=== PATIENT | female | born 1930 | race Caucasian/White ===

== ENCOUNTER 2016-06-28 01:50 | Inpatient (IN) | payer MEDICARE, MEDICAID ==
[~2016-06-28] VITALS: Ht 160 cm; Wt 84.6 kg
[~2016-06-28 01:50] MED LIST: AMLO2.5T PO; APIX2.5T PO; ATOR40TA28 PO; FURO40 PO; METO25 PO; POTA8TAB4 PO; RAMI10 PO
[2016-06-28] MEDS ORDERED: FERR-89 PO (03:18)
[2016-06-28] MEDS ORDERED: RALO60 PO (03:18)
[2016-06-28] MEDS ORDERED: ATOR10TA84 PO (03:18)
[2016-06-28] MEDS ORDERED: DSS100 PO (03:18)
[2016-06-28] MEDS ORDERED: MULT-1259 PO (03:18)
[2016-06-28] MEDS ORDERED: OMEP20 PO (03:18)
[2016-06-28] MEDS ORDERED: HYDR-3965 PO (03:18)
[2016-06-28] MEDS ORDERED: ASPI81TA42 PO (03:18)
[2016-06-28] MEDS ORDERED: VITAD5000 PO (03:18)
[2016-06-28] MEDS ORDERED: FLUT16H NASAL (03:18)
[2016-06-28] MEDS ORDERED: CETI-260 PO (03:18)
[2016-06-28] MEDS ORDERED: AMLO2.5T PO (03:18)
[2016-06-28] MEDS ORDERED: RAMI10 PO (03:18)
[2016-06-28] MEDS ORDERED: BENZ-26 PO (03:18)
[2016-06-28 05:23] LABS: BASOPHILS % (AUTO) 0.5 % (0.0-2.0); HEMATOCRIT 39.5 % (36-46); HEMOGLOBIN 12.5 g/dL (12.0-16.0); LYMPHOCYTES # (AUTO) 1.4 K/uL (1.0-4.8); LYMPHOCYTES % (AUTO) 10.5 % (22.0-44.0); MEAN CORPUSCULAR HEMOGLOBIN 26.4 pg (26.0-34.0); MEAN CORPUSCULAR HGB CONC 31.8 G/dL (31.0-37.0); MEAN CORPUSCULAR VOLUME 83 fL (80-100); MONOCYTES % (AUTO) 7.5 % (2.0-9.0); NEUTROPHILS # (AUTO) 10.1 K/uL (1.8-7.7); NEUTROPHILS % (AUTO) 76.5 % (40.0-70.0); PLATELET COUNT (AUTO) 498 K/uL (150-450); RED BLOOD CELL COUNT(AUTO) 4.75 MIL/uL (4.00-5.20); RED CELL DISTRIBUTION WIDTH 15.5 % (11.5-14.5); WHITE BLOOD COUNT (AUTO) 13.2 K/uL (4.5-11.0)
[2016-06-28 05:33] LABS: ANION GAP 10 mmol/L (8-16); CALCIUM, TOTAL 9.2 mg/dL (8.8-10.5); CARBON DIOXIDE 26 mmol/L (22-29); CHLORIDE 98 mmol/L (98-107); CREATININE 0.89 mg/dL (0.60-1.30); GLOMERULAR FILTR. RATE CALC > 60 mL/min (>60); POTASSIUM 4.6 mmol/L (3.5-5.1); SODIUM SERUM 134 mmol/L (136-145); UREA NITROGEN, BLOOD 8 mg/dL (7-18)
[2016-06-28 05:40] LABS: ALANINE AMINOTRANSFERASE 55 U/L (12-78); ALBUMIN 2.7 g/dL (3.4-5.0); ASPARTATE AMINOTRANSFERASE 31 U/L (15-37); BILIRUBIN,TOTAL 0.4 mg/dL (0.1-1.0); CREATINE KINASE, TOTAL 34 U/L (26-192); TOTAL PROTEIN, SERUM 7.4 g/dL (6.4-8.2)
[2016-06-28 05:55] LABS: B-TYPE NATRIURETIC PEPTIDE 271 pg/mL (0-100)
[2016-06-28] MEDS ORDERED: ALBUTEROL SULFATE 2.5 MG/0.5 ML NEB SOLUTION NEB ONE (06:45)
[2016-06-28] MEDS ORDERED: FUROSEMIDE 40 MG/4 ML VIAL IVP ONE (06:45)
[2016-06-28] MEDS ORDERED: LEVOFLOXACIN 500 MG/D5% WATER 100 ML IV ONE (06:45)
[2016-06-28 07:27] LABS: ADD UA MICROSCOPIC YES; GLUCOSE, URINE (UA) NEGATIVE (NEGATIVE); KETONES,URINE NEGATIVE (NEGATIVE); LEUKOCYTE ESTERASE ,URINE MODERATE (NEGATIVE); OCCULT BLOOD,URINE SMALL (NEGATIVE); PROTEIN,URINE NEGATIVE (NEGATIVE)
[2016-06-28 07:28] LABS: APPEARANCE,URINE HAZY (CLEAR)
[2016-06-28 07:30] LABS: SQUAMOUS EPITHELIAL CELL,UR Few /LPF (None Seen)
[2016-06-28] MEDS: ALBUTEROL SULFATE 2.5 MG/0.5 ML NEB SOLUTION NEB SCH ×3 (09:15→19:49)
[2016-06-28] MEDS ORDERED: OxyCODONE HCL/ACETAMINOPHEN 5-325 MG TABLET PO PRN (09:15)
[2016-06-28] MEDS ORDERED: ALBUTEROL SULFATE 2.5 MG/0.5 ML NEB SOLUTION NEB PRN (09:15)
[2016-06-28] MEDS ORDERED: BENZONATATE 100 MG CAPSULE PO ONE (12:45)
[2016-06-28 17:15] VITALS: BP 124/51
[2016-06-28] MEDS: HEPARIN SODIUM,PORCINE 5,000 UNITS/ML VIAL SQ SCH (17:21)
[2016-06-28] MEDS ORDERED: 0.9% SODIUM CHLORIDE 5 ML NEB SOLUTION NEB ONE (19:15)
[2016-06-28 21:16] VITALS: BP 133/87
[2016-06-28] MEDS ORDERED: BENZONATATE 100 MG CAPSULE PO PRN (21:30)
[2016-06-29] VITALS (7 sets, daily range): BP systolic 101–150; BP diastolic 52–75
[2016-06-29] MEDS: HEPARIN SODIUM,PORCINE 5,000 UNITS/ML VIAL SQ SCH ×4 (00:20→23:44)
[2016-06-29] MEDS ORDERED: ONDANSETRON HCL 4 MG/2 ML VIAL IVP PRN (01:00)
[2016-06-29] MEDS: ZOLPIDEM TARTRATE 5 MG TABLET PO PRN (01:05)
[2016-06-29] MEDS ORDERED: INFLUENZA VIRUS VACCINE QVS 2016-17 (3YR+)/PF 60 MCG/0.5 ML SYRINGE IM ONE (02:00)
[2016-06-29] MEDS ORDERED: -PHARMACY VACCINE NOTE- MISC ONE ×2 (02:00)
[2016-06-29] MEDS: ALBUTEROL SULFATE 2.5 MG/0.5 ML NEB SOLUTION NEB SCH ×4 (02:00→20:18)
[2016-06-29] MEDS ORDERED: 0.9% SODIUM CHLORIDE 5 ML NEB SOLUTION NEB ONE ×3 (07:20→20:07)
[2016-06-29] MEDS: PANTOPRAZOLE SODIUM 40 MG DR TABLET PO SCH (09:24)
[2016-06-29] MEDS: AmLODIPine BESYLATE 2.5 MG TABLET PO SCH ×2 (12:01→20:58)
[2016-06-29] MEDS: ASPIRIN 81 MG EC TABLET PO SCH (12:01)
[2016-06-29] MEDS: METOPROLOL TARTRATE 25 MG TABLET PO SCH (12:01)
[2016-06-29] MEDS: ATORVASTATIN CALCIUM 10 MG TABLET PO SCH (12:01)
[2016-06-29] MEDS: BENZONATATE 100 MG CAPSULE PO SCH ×2 (16:48→20:57)
[2016-06-29] MEDS: ACETAMINOPHEN 325 MG TABLET PO PRN (19:46)
[2016-06-29] MEDS: RAMIPRIL 10 MG CAPSULE PO SCH (20:58)
[2016-06-30] MEDS ORDERED: 0.9% SODIUM CHLORIDE 5 ML NEB SOLUTION NEB ONE ×4 (02:03→20:07)
[2016-06-30] MEDS: ALBUTEROL SULFATE 2.5 MG/0.5 ML NEB SOLUTION NEB SCH ×4 (02:08→20:09)
[2016-06-30 03:55] VITALS: BP 128/68
[2016-06-30 07:24] LABS: BASOPHILS % (AUTO) 0.6 % (0.0-2.0); EOSINOPHILS % (AUTO) 8.7 % (1.0-6.0); HEMATOCRIT 37.6 % (36-46); HEMOGLOBIN 11.9 g/dL (12.0-16.0); LYMPHOCYTES # (AUTO) 1.3 K/uL (1.0-4.8); LYMPHOCYTES % (AUTO) 11.2 % (22.0-44.0); MEAN CORPUSCULAR HEMOGLOBIN 26.3 pg (26.0-34.0); MEAN CORPUSCULAR HGB CONC 31.5 G/dL (31.0-37.0); MEAN CORPUSCULAR VOLUME 83 fL (80-100); MONOCYTES % (AUTO) 8.3 % (2.0-9.0); NEUTROPHILS # (AUTO) 8.4 K/uL (1.8-7.7); NEUTROPHILS % (AUTO) 71.2 % (40.0-70.0); PLATELET COUNT (AUTO) 527 K/uL (150-450); RED BLOOD CELL COUNT(AUTO) 4.51 MIL/uL (4.00-5.20); RED CELL DISTRIBUTION WIDTH 16.3 % (11.5-14.5); WHITE BLOOD COUNT (AUTO) 11.8 K/uL (4.5-11.0)
[2016-06-30 07:42] VITALS: BP 130/77
[2016-06-30 07:54] LABS: ALANINE AMINOTRANSFERASE 36 U/L (12-78); ALBUMIN 2.4 g/dL (3.4-5.0); ANION GAP 8 mmol/L (8-16); ASPARTATE AMINOTRANSFERASE 29 U/L (15-37); BILIRUBIN,TOTAL 0.3 mg/dL (0.1-1.0); CARBON DIOXIDE 28 mmol/L (22-29); CHLORIDE 95 mmol/L (98-107); CREATININE 0.86 mg/dL (0.60-1.30); GLOMERULAR FILTR. RATE CALC > 60 mL/min (>60); POTASSIUM 4.8 mmol/L (3.5-5.1); SODIUM SERUM 131 mmol/L (136-145); TOTAL PROTEIN, SERUM 6.9 g/dL (6.4-8.2); UREA NITROGEN, BLOOD 7 mg/dL (7-18)
[2016-06-30] MEDS: HEPARIN SODIUM,PORCINE 5,000 UNITS/ML VIAL SQ SCH ×3 (08:54→23:30)
[2016-06-30] MEDS: CHOLECALCIFEROL (VIT D3) 5,000 UNITS CAPSULE PO SCH (08:56)
[2016-06-30] MEDS: CETIRIZINE HCL 10 MG TABLET PO SCH (08:56)
[2016-06-30] MEDS: BENZONATATE 100 MG CAPSULE PO SCH ×3 (08:57→21:05)
[2016-06-30] MEDS: ASPIRIN 81 MG EC TABLET PO SCH (08:57)
[2016-06-30] MEDS: ATORVASTATIN CALCIUM 10 MG TABLET PO SCH (08:57)
[2016-06-30] MEDS: PANTOPRAZOLE SODIUM 40 MG DR TABLET PO SCH (08:58)
[2016-06-30] MEDS: METOPROLOL TARTRATE 25 MG TABLET PO SCH (08:58)
[2016-06-30 11:16] VITALS: BP 108/58
[2016-06-30] MEDS: AmLODIPine BESYLATE 2.5 MG TABLET PO SCH ×2 (11:58→21:05)
[2016-06-30] MEDS: RAMIPRIL 10 MG CAPSULE PO SCH ×2 (11:58→21:05)
[2016-06-30 15:20] VITALS: BP 131/60
[2016-06-30] MEDS: ACETAMINOPHEN 325 MG TABLET PO PRN (17:29)
[2016-06-30 19:21] VITALS: BP 112/76
[2016-06-30 23:24] VITALS: BP 111/57
[2016-06-30] MEDS: ZOLPIDEM TARTRATE 5 MG TABLET PO PRN (23:30)
[2016-07-01] MEDS: ALBUTEROL SULFATE 2.5 MG/0.5 ML NEB SOLUTION NEB SCH ×2 (02:00→08:26)
[2016-07-01 05:12] VITALS: BP 133/58
[2016-07-01 06:43] LABS: EOSINOPHILS % (AUTO) 10.3 % (1.0-6.0); HEMATOCRIT 36.7 % (36-46); HEMOGLOBIN 11.6 g/dL (12.0-16.0); LYMPHOCYTES # (AUTO) 1.2 K/uL (1.0-4.8); LYMPHOCYTES % (AUTO) 11.6 % (22.0-44.0); MEAN CORPUSCULAR HEMOGLOBIN 26.5 pg (26.0-34.0); MEAN CORPUSCULAR HGB CONC 31.6 G/dL (31.0-37.0); MEAN CORPUSCULAR VOLUME 84 fL (80-100); MONOCYTES % (AUTO) 9.5 % (2.0-9.0); NEUTROPHILS # (AUTO) 6.9 K/uL (1.8-7.7); NEUTROPHILS % (AUTO) 67.6 % (40.0-70.0); PLATELET COUNT (AUTO) 491 K/uL (150-450); RED BLOOD CELL COUNT(AUTO) 4.38 MIL/uL (4.00-5.20); RED CELL DISTRIBUTION WIDTH 15.9 % (11.5-14.5); WHITE BLOOD COUNT (AUTO) 10.3 K/uL (4.5-11.0)
[2016-07-01] MEDS ORDERED: 0.9% SODIUM CHLORIDE 5 ML NEB SOLUTION NEB ONE (07:22)
[2016-07-01 07:24] LABS: ALANINE AMINOTRANSFERASE 38 U/L (12-78); ALBUMIN 2.3 g/dL (3.4-5.0); ANION GAP 8 mmol/L (8-16); ASPARTATE AMINOTRANSFERASE 30 U/L (15-37); BILIRUBIN,TOTAL 0.3 mg/dL (0.1-1.0); CALCIUM, TOTAL 8.9 mg/dL (8.8-10.5); CARBON DIOXIDE 27 mmol/L (22-29); CHLORIDE 97 mmol/L (98-107); GLOMERULAR FILTR. RATE CALC > 60 mL/min (>60); POTASSIUM 4.7 mmol/L (3.5-5.1); SODIUM SERUM 132 mmol/L (136-145); TOTAL PROTEIN, SERUM 6.4 g/dL (6.4-8.2); UREA NITROGEN, BLOOD 5 mg/dL (7-18)
[2016-07-01 07:28] VITALS: BP 125/59
[2016-07-01] MEDS: HEPARIN SODIUM,PORCINE 5,000 UNITS/ML VIAL SQ SCH (08:49)
[2016-07-01] MEDS: PANTOPRAZOLE SODIUM 40 MG DR TABLET PO SCH (08:50)
[2016-07-01] MEDS: ATORVASTATIN CALCIUM 10 MG TABLET PO SCH (08:50)
[2016-07-01] MEDS: METOPROLOL TARTRATE 25 MG TABLET PO SCH (08:50)
[2016-07-01] MEDS: CHOLECALCIFEROL (VIT D3) 5,000 UNITS CAPSULE PO SCH (08:50)
[2016-07-01] MEDS: CETIRIZINE HCL 10 MG TABLET PO SCH (08:51)
[2016-07-01] MEDS: BENZONATATE 100 MG CAPSULE PO SCH (08:51)
[2016-07-01] MEDS: ASPIRIN 81 MG EC TABLET PO SCH (08:51)
[2016-07-01 11:09] VITALS: BP 100/75
[2016-07-01] MEDS: RAMIPRIL 10 MG CAPSULE PO SCH (11:44)
[2016-07-01] MEDS: AmLODIPine BESYLATE 2.5 MG TABLET PO SCH (11:44)
[2016-07-01] MEDS ORDERED: CIPR500S4 PO (13:29)
[2016-07-01] MEDS ORDERED: CIP750 PO (13:31)
[2016-07-01] MEDS ORDERED: BENZ1LOZ68 PO (13:33)
[2016-07-01] MEDS ORDERED: TUSSI5L PO (13:34)
== END 2016-07-01 14:45 | disposition home or self-care (01) | DRG 871 ==
LOC: EMS 01:51 → 5S 14:45 → 5N 19:40
PROVIDERS: ADMIT Hospitalist; ATTEND Hospitalist
DX: A41.9 Sepsis, unspecified organism (principal); J69.0 Pneumonitis due to inhalation of food and vomit; E43 Unspecified severe protein-calorie malnutrition; N39.0 Urinary tract infection, site not specified; I48.2 Chronic atrial fibrillation; I10 Essential (primary) hypertension; Z86.73 Personal history of transient ischemic attack (TIA), and cerebral infarction without residual deficits; E66.9 Obesity, unspecified; E88.09 Other disorders of plasma-protein metabolism, not elsewhere classified; E78.5 Hyperlipidemia, unspecified; E78.00 Pure hypercholesterolemia, unspecified; K21.9 Gastro-esophageal reflux disease without esophagitis; M81.0 Age-related osteoporosis without current pathological fracture; Z88.0 Allergy status to penicillin; Z91.040 Latex allergy status; Z79.82 Long term (current) use of aspirin; Z79.1 Long term (current) use of non-steroidal anti-inflammatories (NSAID); Z79.899 Other long term (current) drug therapy; Z68.33 Body mass index [BMI] 33.0-33.9, adult; Z28.21 Immunization not carried out because of patient refusal
CPT/HCPCS: 83605; 87040; 87086; 90471; 93005; 94640; 96365; 96366; 96375; 99285; J1644; J1940; J1956; J2405

== ENCOUNTER → 2016-07-03 | Outpatient (CLI) | payer MEDICARE, MEDICAID ==
[~2016-07-03] MED LIST changes: -APIX2.5T PO; +ASPI81TA42 PO; +ATOR10TA84 PO; -ATOR40TA28 PO; +BENZ-26 PO; +BENZ1LOZ68 PO; +CETI-193 PO; +CETI-260 PO; +CIP750 PO; +DSS100 PO; +FERR-89 PO; +FLUT16H NASAL; -FURO40 PO; +HYDR-3965 PO; +LEVO250 PO; +MULT-1259 PO; +NACL1 PO; +OMEP20 PO; -POTA8TAB4 PO; +RALO60 PO; +TURM500C3 PO; +TUSSI5L PO; +VITAD5000 PO
== END | disposition home or self-care (01) ==
LOC: RADPV 12:51
PROVIDERS: ATTEND Legal Medicine
DX: J18.9 Pneumonia, unspecified organism (principal); J98.4 Other disorders of lung; I70.0 Atherosclerosis of aorta
CPT/HCPCS: 71020

== ENCOUNTER → 2016-08-14 | Outpatient (CLI) | payer MEDICARE, MEDICAID ==
[~2016-08-14] MED LIST changes: -CETI-193 PO; -FERR-89 PO; +FERS325 PO; -LEVO250 PO; -NACL1 PO; -TURM500C3 PO
== END | disposition home or self-care (01) ==
LOC: RADPV 14:47
PROVIDERS: ATTEND Legal Medicine
DX: J18.9 Pneumonia, unspecified organism (principal); I51.7 Cardiomegaly; I70.0 Atherosclerosis of aorta; R59.9 Enlarged lymph nodes, unspecified
CPT/HCPCS: 71020

== ENCOUNTER 2016-08-26 12:07 | Inpatient (IN) | payer MEDICARE, MEDICAID ==
[~2016-08-26] VITALS: Ht 167.6 cm; Wt 78.7 kg
[~2016-08-26 12:07] MED LIST changes: +FERR-89 PO; -FERS325 PO
[2016-08-26] MEDS ORDERED: CETI-193 PO (12:14)
[2016-08-26] MEDS ORDERED: TURM500C3 PO (12:16)
[2016-08-26] MEDS ORDERED: SODIUM CHLORIDE 0.9% 1,000 ML IV ONE (12:30)
[2016-08-26 12:48] LABS: BASOPHILS % (AUTO) 0.6 % (0.0-2.0); EOSINOPHILS % (AUTO) 7.6 % (1.0-6.0); HEMATOCRIT 36.8 % (36-46); HEMOGLOBIN 11.6 g/dL (12.0-16.0); LYMPHOCYTES # (AUTO) 1.5 K/uL (1.0-4.8); MEAN CORPUSCULAR HEMOGLOBIN 25.8 pg (26.0-34.0); MEAN CORPUSCULAR HGB CONC 31.5 G/dL (31.0-37.0); MEAN CORPUSCULAR VOLUME 82 fL (80-100); MONOCYTES # (AUTO) 0.7 K/uL (0.1-1.0); MONOCYTES % (AUTO) 6.5 % (2.0-9.0); NEUTROPHILS # (AUTO) 8.1 K/uL (1.8-7.7); NEUTROPHILS % (AUTO) 72.3 % (40.0-70.0); PLATELET COUNT (AUTO) 448 K/uL (150-450); RED BLOOD CELL COUNT(AUTO) 4.49 MIL/uL (4.00-5.20); RED CELL DISTRIBUTION WIDTH 17.3 % (11.5-14.5); WHITE BLOOD COUNT (AUTO) 11.2 K/uL (4.5-11.0)
[2016-08-26 13:03] LABS: CALCIUM, TOTAL 9.6 mg/dL (8.8-10.5); CREATININE 1.36 mg/dL (0.60-1.30); POTASSIUM 5.3 mmol/L (3.5-5.1)
[2016-08-26 13:09] LABS: ALBUMIN 3.1 g/dL (3.4-5.0); BILIRUBIN,TOTAL 0.6 mg/dL (0.1-1.0); TOTAL PROTEIN, SERUM 7.8 g/dL (6.4-8.2)
[2016-08-26 13:20] LABS: RBC MORPHOLOGY COMMENT ABNORMAL RBC MORPH
[2016-08-26] MEDS ORDERED: LEVOFLOXACIN 500 MG/D5% WATER 100 ML IV ONE (15:00)
[2016-08-26] MEDS ORDERED: FUROSEMIDE 40 MG/4 ML VIAL IVP ONE (15:00)
[2016-08-26 15:42] LABS: APPEARANCE,URINE CLEAR (CLEAR); GLUCOSE, URINE (UA) NEGATIVE (NEGATIVE); KETONES,URINE NEGATIVE (NEGATIVE); LEUKOCYTE ESTERASE ,URINE NEGATIVE (NEGATIVE); OCCULT BLOOD,URINE NEGATIVE (NEGATIVE); PH,URINE 6.5 (5.0-8.0); PROTEIN,URINE NEGATIVE (NEGATIVE)
[2016-08-26 15:45] LABS: ADD UA MICROSCOPIC NO
[2016-08-26] MEDS ORDERED: ONDANSETRON HCL 4 MG/2 ML VIAL IVP PRN (16:45)
[2016-08-26] MEDS ORDERED: MAGNESIUM HYDROXIDE SUSPENSION 30 ML UDCUP PO PRN (16:45)
[2016-08-26] MEDS: HEPARIN SODIUM,PORCINE 5,000 UNITS/ML VIAL SQ SCH (16:45)
[2016-08-26] MEDS ORDERED: BISACODYL 10 MG RECTAL RECTAL SUPPOSITORY PR PRN (16:45)
[2016-08-26] MEDS ORDERED: *CLINICAL-LEVOFLOXACIN IVPB DOSING CLINICAL ONE ×2 (17:00)
[2016-08-26 17:01] VITALS: BP 114/64
[2016-08-26] MEDS: BENZONATATE 100 MG CAPSULE PO SCH ×2 (18:48→23:54)
[2016-08-26 19:35] VITALS: BP 122/61
[2016-08-26] MEDS: FERROUS SULFATE 325 MG EC TABLET PO SCH (21:09)
[2016-08-26] MEDS: ACETAMINOPHEN 325 MG TABLET PO PRN (21:09)
[2016-08-26] MEDS: ZOLPIDEM TARTRATE 5 MG TABLET PO PRN (21:09)
[2016-08-26] MEDS: FLUTICASONE PROPIONATE 50 MCG/SPRAY 16 GM NASAL SPRAY NASAL SCH (21:46)
[2016-08-27 00:25] VITALS: BP 109/59
[2016-08-27] MEDS: HEPARIN SODIUM,PORCINE 5,000 UNITS/ML VIAL SQ SCH ×2 (04:47→17:22)
[2016-08-27 05:07] VITALS: BP_SYST 103; BP_SYST 131; BP_DIAS 52; BP_DIAS 60
[2016-08-27 07:05] LABS: BASOPHILS # (AUTO) 0.15 K/uL (0.00-0.20); BASOPHILS % (AUTO) 1.8 % (0.0-2.0); EOSINOPHILS # (AUTO) 0.97 K/uL (0.00-0.70); EOSINOPHILS % (AUTO) 11.46 % (1.0-6.0); HEMATOCRIT 31.8 % (36-46); HEMOGLOBIN 10.3 g/dL (12.0-16.0); LYMPHOCYTES # (AUTO) 1.6 K/uL (1.0-4.8); LYMPHOCYTES % (AUTO) 18.5 % (22.0-44.0); MEAN CORPUSCULAR HEMOGLOBIN 26.6 pg (26.0-34.0); MEAN CORPUSCULAR HGB CONC 32.3 G/dL (31.0-37.0); MEAN CORPUSCULAR VOLUME 82 fL (80-100); MONOCYTES # (AUTO) 0.8 K/uL (0.1-1.0); MONOCYTES % (AUTO) 9.5 % (2.0-9.0); NEUTROPHILS % (AUTO) 58.7 % (40.0-70.0); PLATELET COUNT (AUTO) 425 K/uL (150-450); RED BLOOD CELL COUNT(AUTO) 3.86 MIL/uL (4.00-5.20); RED CELL DISTRIBUTION WIDTH 17.9 % (11.5-14.5); WHITE BLOOD COUNT (AUTO) 8.4 K/uL (4.5-11.0)
[2016-08-27 07:51] LABS: HEMOGLOBIN A1C 6.7 % (4.5-6.2)
[2016-08-27 07:58] LABS: ANION GAP 10 mmol/L (8-16); CARBON DIOXIDE 24 mmol/L (22-29); CHLORIDE 98 mmol/L (98-107); CHOL/HDL RATIO 3.7 (3.9-5.7); CREATINE KINASE, TOTAL 45 U/L (26-192); CREATININE 1.41 mg/dL (0.60-1.30); GLOMERULAR FILTR. RATE CALC 36 mL/min (>60); POTASSIUM 4.1 mmol/L (3.5-5.1); SODIUM SERUM 132 mmol/L (136-145); UREA NITROGEN, BLOOD 17 mg/dL (7-18)
[2016-08-27 08:05] VITALS: BP 101/60
[2016-08-27] MEDS ORDERED: FUROSEMIDE 20 MG/2 ML VIAL IVP SCH (09:00)
[2016-08-27] MEDS ORDERED: PANTOPRAZOLE SODIUM 40 MG DR TABLET PO SCH (09:00)
[2016-08-27] MEDS: CHOLECALCIFEROL (VIT D3) 5,000 UNITS CAPSULE PO SCH (09:36)
[2016-08-27] MEDS: BENZONATATE 100 MG CAPSULE PO SCH ×3 (09:36→23:37)
[2016-08-27] MEDS: ATORVASTATIN CALCIUM 10 MG TABLET PO SCH (09:36)
[2016-08-27] MEDS: ASPIRIN 81 MG EC TABLET PO SCH (09:37)
[2016-08-27] MEDS: OMEPRAZOLE 20 MG CAPSULE PO SCH (09:37)
[2016-08-27] MEDS: ACETAMINOPHEN 325 MG TABLET PO PRN (09:40)
[2016-08-27] MEDS: FLUTICASONE PROPIONATE 50 MCG/SPRAY 16 GM NASAL SPRAY NASAL SCH ×2 (09:40→20:23)
[2016-08-27 09:45] LABS: RBC MORPHOLOGY COMMENT ABNORMAL RBC MORPH
[2016-08-27 11:14] VITALS: BP 93/54
[2016-08-27] MEDS ORDERED: MAGNESIUM SULFATE 3 GM in DEXTROSE 5%-WATER 100 ML IV ONE (11:15)
[2016-08-27] MEDS ORDERED: MORPHINE SULFATE 2 MG/ML SYRINGE IVP PRN (12:15)
[2016-08-27] MEDS ORDERED: HYDROCODONE/ACETAMINOPHEN 5-325 MG TABLET PO PRN (12:15)
[2016-08-27 15:36] VITALS: BP 108/65
[2016-08-27] MEDS: LEVOFLOXACIN 750 MG/D5% WATER 150 ML IV SCH (18:36)
[2016-08-27 20:01] VITALS: BP 131/54
[2016-08-27] MEDS: FERROUS SULFATE 325 MG EC TABLET PO SCH (20:23)
[2016-08-27] MEDS ORDERED: 0.9% SODIUM CHLORIDE 15 ML NEB SOLUTION NEB ONE (21:10)
[2016-08-27] MEDS: DOCUSATE SODIUM 100 MG CAPSULE PO PRN (23:39)
[2016-08-27] MEDS ORDERED: SODIUM CHLORIDE 3% 15 ML NEB SOLUTION NEB ONE (23:46)
[2016-08-28] VITALS (8 sets, daily range): BP systolic 97–121; BP diastolic 50–80
[2016-08-28] MEDS: ALBUTEROL SULFATE 2.5 MG/0.5 ML NEB SOLUTION NEB PRN ×3 (00:04→17:15)
[2016-08-28] MEDS: IPRATROPIUM BROMIDE 0.5 MG/2.5 ML NEB SOLUTION NEB PRN ×3 (00:04→17:15)
[2016-08-28] MEDS ORDERED: 0.9% SODIUM CHLORIDE 5 ML NEB SOLUTION NEB ONE (00:19)
[2016-08-28] MEDS: ZOLPIDEM TARTRATE 5 MG TABLET PO PRN (01:17)
[2016-08-28] MEDS: HEPARIN SODIUM,PORCINE 5,000 UNITS/ML VIAL SQ SCH ×2 (04:51→16:03)
[2016-08-28 06:03] LABS: BASOPHILS # (AUTO) 0.07 K/uL (0.00-0.20); BASOPHILS % (AUTO) 0.7 % (0.0-2.0); EOSINOPHILS # (AUTO) 0.62 K/uL (0.00-0.70); EOSINOPHILS % (AUTO) 6.53 % (1.0-6.0); HEMATOCRIT 30.8 % (36-46); HEMOGLOBIN 10.3 g/dL (12.0-16.0); LYMPHOCYTES # (AUTO) 1.6 K/uL (1.0-4.8); LYMPHOCYTES % (AUTO) 16.8 % (22.0-44.0); MEAN CORPUSCULAR HEMOGLOBIN 27.1 pg (26.0-34.0); MEAN CORPUSCULAR HGB CONC 33.3 G/dL (31.0-37.0); MEAN CORPUSCULAR VOLUME 81 fL (80-100); NEUTROPHILS # (AUTO) 6.3 K/uL (1.8-7.7); NEUTROPHILS % (AUTO) 65.9 % (40.0-70.0); PLATELET COUNT (AUTO) 435 K/uL (150-450); RED BLOOD CELL COUNT(AUTO) 3.78 MIL/uL (4.00-5.20); RED CELL DISTRIBUTION WIDTH 17.7 % (11.5-14.5); WHITE BLOOD COUNT (AUTO) 9.6 K/uL (4.5-11.0)
[2016-08-28 06:17] LABS: CALCIUM, TOTAL 9.2 mg/dL (8.8-10.5); CREATININE 1.43 mg/dL (0.60-1.30); MAGNESIUM 2.3 mg/dL (1.80-2.40); PHOSPHORUS 3.5 mg/dL (2.5-4.9)
[2016-08-28 08:05] LABS: PROCALCITONIN (PCT) 0.07 ng/mL (<0.50)
[2016-08-28 08:15] LABS: RBC MORPHOLOGY COMMENT ABNORMAL RBC MORPH
[2016-08-28] MEDS ORDERED: 0.9% SODIUM CHLORIDE 15 ML NEB SOLUTION NEB ONE (08:27)
[2016-08-28] MEDS: ASPIRIN 81 MG EC TABLET PO SCH (08:38)
[2016-08-28] MEDS: ATORVASTATIN CALCIUM 10 MG TABLET PO SCH (08:38)
[2016-08-28] MEDS: FLUTICASONE PROPIONATE 50 MCG/SPRAY 16 GM NASAL SPRAY NASAL SCH ×2 (08:38→20:27)
[2016-08-28] MEDS: BENZONATATE 100 MG CAPSULE PO SCH ×2 (08:38→16:03)
[2016-08-28] MEDS: CHOLECALCIFEROL (VIT D3) 5,000 UNITS CAPSULE PO SCH (08:39)
[2016-08-28] MEDS: OMEPRAZOLE 20 MG CAPSULE PO SCH (08:39)
[2016-08-28 12:18] LABS: ORGANISM ID Not indicated.
[2016-08-28] MEDS: SODIUM CHLORIDE 0.9% 1,000 ML IV SCH (13:43)
[2016-08-28] MEDS ORDERED: HALOPERIDOL LACTATE 5 MG/ML VIAL IVP ONE (14:00)
[2016-08-28 14:21] LABS: CALCIUM, TOTAL 9.1 mg/dL (8.8-10.5); CREATININE 1.51 mg/dL (0.60-1.30); POTASSIUM 4.7 mmol/L (3.5-5.1)
[2016-08-28] MEDS ORDERED: METOPROLOL TARTRATE 25 MG TABLET PO ONE (17:15)
[2016-08-28] MEDS: FERROUS SULFATE 325 MG EC TABLET PO SCH (20:27)
[2016-08-28] MEDS: METOPROLOL TARTRATE 25 MG TABLET PO SCH (20:28)
[2016-08-28 20:33] LABS: CALCIUM, TOTAL 9.2 mg/dL (8.8-10.5); CREATININE 1.37 mg/dL (0.60-1.30); POTASSIUM 4.5 mmol/L (3.5-5.1)
[2016-08-28 21:06] LABS: MYCOPLASMA AB IGG <100 U/mL (0-99)
[2016-08-29] VITALS (7 sets, daily range): BP systolic 100–127; BP diastolic 56–74
[2016-08-29] MEDS ORDERED: HALOPERIDOL LACTATE 5 MG/ML VIAL IVP ONE (00:30)
[2016-08-29] MEDS: BENZONATATE 100 MG CAPSULE PO SCH ×4 (00:32→23:36)
[2016-08-29] MEDS ORDERED: SODIUM CHLORIDE 3% 15 ML NEB SOLUTION NEB ONE (01:12)
[2016-08-29] MEDS ORDERED: 0.9% SODIUM CHLORIDE 15 ML NEB SOLUTION NEB ONE (01:18)
[2016-08-29] MEDS: HEPARIN SODIUM,PORCINE 5,000 UNITS/ML VIAL SQ SCH ×2 (05:59→16:08)
[2016-08-29 06:02] LABS: BASOPHILS # (AUTO) 0.07 K/uL (0.00-0.20); BASOPHILS % (AUTO) 0.7 % (0.0-2.0); EOSINOPHILS # (AUTO) 1.04 K/uL (0.00-0.70); EOSINOPHILS % (AUTO) 10.38 % (1.0-6.0); HEMOGLOBIN 10.4 g/dL (12.0-16.0); LYMPHOCYTES # (AUTO) 1.3 K/uL (1.0-4.8); LYMPHOCYTES % (AUTO) 12.6 % (22.0-44.0); MEAN CORPUSCULAR HEMOGLOBIN 26.8 pg (26.0-34.0); MEAN CORPUSCULAR HGB CONC 32.5 G/dL (31.0-37.0); MEAN CORPUSCULAR VOLUME 82 fL (80-100); MONOCYTES # (AUTO) 0.8 K/uL (0.1-1.0); NEUTROPHILS # (AUTO) 6.9 K/uL (1.8-7.7); NEUTROPHILS % (AUTO) 68.4 % (40.0-70.0); PLATELET COUNT (AUTO) 416 K/uL (150-450); RED BLOOD CELL COUNT(AUTO) 3.89 MIL/uL (4.00-5.20); RED CELL DISTRIBUTION WIDTH 17.8 % (11.5-14.5)
[2016-08-29 06:51] LABS: CALCIUM, TOTAL 9.1 mg/dL (8.8-10.5); CREATININE 1.22 mg/dL (0.60-1.30); MAGNESIUM 1.9 mg/dL (1.80-2.40); POTASSIUM 4.7 mmol/L (3.5-5.1)
[2016-08-29] MEDS: FLUTICASONE PROPIONATE 50 MCG/SPRAY 16 GM NASAL SPRAY NASAL SCH ×2 (09:06→20:47)
[2016-08-29] MEDS: METOPROLOL TARTRATE 25 MG TABLET PO SCH ×2 (09:07→20:47)
[2016-08-29] MEDS: ATORVASTATIN CALCIUM 10 MG TABLET PO SCH (09:07)
[2016-08-29] MEDS: ASPIRIN 81 MG EC TABLET PO SCH (09:07)
[2016-08-29] MEDS: OMEPRAZOLE 20 MG CAPSULE PO SCH (09:07)
[2016-08-29] MEDS: CHOLECALCIFEROL (VIT D3) 5,000 UNITS CAPSULE PO SCH (09:07)
[2016-08-29] MEDS: SODIUM CHLORIDE 0.9% 1,000 ML IV SCH (09:08)
[2016-08-29] MEDS: LEVOFLOXACIN 750 MG/D5% WATER 150 ML IV SCH (16:07)
[2016-08-29] MEDS: CETIRIZINE HCL 10 MG TABLET PO SCH (18:25)
[2016-08-29] MEDS: FERROUS SULFATE 325 MG EC TABLET PO SCH (20:47)
[2016-08-29] MEDS: ZOLPIDEM TARTRATE 5 MG TABLET PO PRN (20:53)
[2016-08-29] MEDS: GuaiFENesin/D-METHORPHAN/PHENYLEPH 5 ML LIQUID ORAL.SYG PO PRN (20:53)
[2016-08-30] VITALS (7 sets, daily range): BP systolic 100–135; BP diastolic 57–78
[2016-08-30] MEDS: HEPARIN SODIUM,PORCINE 5,000 UNITS/ML VIAL SQ SCH ×2 (05:12→16:07)
[2016-08-30] MEDS: SODIUM CHLORIDE 0.9% 1,000 ML IV SCH (05:13)
[2016-08-30 07:02] LABS: CALCIUM, TOTAL 9.1 mg/dL (8.8-10.5); CREATININE 1.11 mg/dL (0.60-1.30); POTASSIUM 4.7 mmol/L (3.5-5.1)
[2016-08-30] MEDS: BENZONATATE 100 MG CAPSULE PO SCH ×2 (08:22→16:07)
[2016-08-30] MEDS: ASPIRIN 81 MG EC TABLET PO SCH (08:22)
[2016-08-30] MEDS: FLUTICASONE PROPIONATE 50 MCG/SPRAY 16 GM NASAL SPRAY NASAL SCH ×2 (08:22→21:15)
[2016-08-30] MEDS: METOPROLOL TARTRATE 25 MG TABLET PO SCH ×2 (08:23→16:08)
[2016-08-30] MEDS: ATORVASTATIN CALCIUM 10 MG TABLET PO SCH (08:23)
[2016-08-30] MEDS: CETIRIZINE HCL 10 MG TABLET PO SCH (08:24)
[2016-08-30] MEDS: CHOLECALCIFEROL (VIT D3) 5,000 UNITS CAPSULE PO SCH (08:24)
[2016-08-30] MEDS: OMEPRAZOLE 20 MG CAPSULE PO SCH (08:24)
[2016-08-30] MEDS: SODIUM CHLORIDE 1 GM TABLET PO SCH ×2 (12:09→21:15)
[2016-08-30] MEDS: ZOLPIDEM TARTRATE 5 MG TABLET PO PRN (21:15)
[2016-08-30] MEDS: FERROUS SULFATE 325 MG EC TABLET PO SCH (21:15)
[2016-08-30] MEDS: GuaiFENesin/D-METHORPHAN/PHENYLEPH 5 ML LIQUID ORAL.SYG PO PRN (21:16)
[2016-08-31] MEDS: METOPROLOL TARTRATE 25 MG TABLET PO SCH ×3 (00:29→17:04)
[2016-08-31] MEDS: HEPARIN SODIUM,PORCINE 5,000 UNITS/ML VIAL SQ SCH ×2 (03:39→17:01)
[2016-08-31 03:53] VITALS: BP 104/49
[2016-08-31 08:19] VITALS: BP 113/70
[2016-08-31] MEDS: BENZONATATE 100 MG CAPSULE PO SCH ×3 (08:28→17:02)
[2016-08-31] MEDS: ATORVASTATIN CALCIUM 10 MG TABLET PO SCH (08:28)
[2016-08-31] MEDS: OMEPRAZOLE 20 MG CAPSULE PO SCH (08:29)
[2016-08-31] MEDS: CETIRIZINE HCL 10 MG TABLET PO SCH (08:29)
[2016-08-31] MEDS: SODIUM CHLORIDE 1 GM TABLET PO SCH ×2 (08:29→21:26)
[2016-08-31] MEDS: CHOLECALCIFEROL (VIT D3) 5,000 UNITS CAPSULE PO SCH (08:29)
[2016-08-31] MEDS: ASPIRIN 81 MG EC TABLET PO SCH (08:30)
[2016-08-31] MEDS: FLUTICASONE PROPIONATE 50 MCG/SPRAY 16 GM NASAL SPRAY NASAL SCH ×2 (08:30→21:26)
[2016-08-31 11:40] VITALS: BP 111/55
[2016-08-31] MEDS: LEVOFLOXACIN 750 MG/D5% WATER 150 ML IV SCH (15:55)
[2016-08-31] MEDS: APIXABAN 2.5 MG TABLET PO SCH (21:26)
[2016-08-31] MEDS: FERROUS SULFATE 325 MG EC TABLET PO SCH (21:26)
[2016-08-31] MEDS: GuaiFENesin/D-METHORPHAN/PHENYLEPH 5 ML LIQUID ORAL.SYG PO PRN (21:36)
[2016-08-31 21:45] VITALS: BP 104/63
[2016-09-01 00:12] VITALS: BP 111/67
[2016-09-01] MEDS: METOPROLOL TARTRATE 25 MG TABLET PO SCH ×3 (00:16→17:02)
[2016-09-01] MEDS: BENZONATATE 100 MG CAPSULE PO SCH ×3 (00:16→17:01)
[2016-09-01] MEDS: HEPARIN SODIUM,PORCINE 5,000 UNITS/ML VIAL SQ SCH (04:45)
[2016-09-01 04:55] VITALS: BP 114/76
[2016-09-01 07:02] VITALS: BP 120/73
[2016-09-01 07:06] LABS: BASOPHILS # (AUTO) 0.18 K/uL (0.00-0.20); BASOPHILS % (AUTO) 1.6 % (0.0-2.0); EOSINOPHILS # (AUTO) 1.04 K/uL (0.00-0.70); EOSINOPHILS % (AUTO) 9.48 % (1.0-6.0); HEMATOCRIT 32.2 % (36-46); HEMOGLOBIN 10.4 g/dL (12.0-16.0); LYMPHOCYTES # (AUTO) 1.5 K/uL (1.0-4.8); LYMPHOCYTES % (AUTO) 13.7 % (22.0-44.0); MEAN CORPUSCULAR HEMOGLOBIN 26.9 pg (26.0-34.0); MEAN CORPUSCULAR HGB CONC 32.4 G/dL (31.0-37.0); MEAN CORPUSCULAR VOLUME 83 fL (80-100); MONOCYTES # (AUTO) 0.9 K/uL (0.1-1.0); MONOCYTES % (AUTO) 8.1 % (2.0-9.0); NEUTROPHILS # (AUTO) 7.4 K/uL (1.8-7.7); NEUTROPHILS % (AUTO) 67.1 % (40.0-70.0); PLATELET COUNT (AUTO) 431 K/uL (150-450); RED BLOOD CELL COUNT(AUTO) 3.87 MIL/uL (4.00-5.20); RED CELL DISTRIBUTION WIDTH 18.2 % (11.5-14.5)
[2016-09-01 07:59] LABS: ALBUMIN 2.6 g/dL (3.4-5.0); BILIRUBIN,TOTAL 0.4 mg/dL (0.1-1.0); CALCIUM, TOTAL 9.5 mg/dL (8.8-10.5); CREATININE 1.1 mg/dL (0.60-1.30); MAGNESIUM 1.5 mg/dL (1.80-2.40); PHOSPHORUS 3.6 mg/dL (2.5-4.9); POTASSIUM 4.5 mmol/L (3.5-5.1); TOTAL PROTEIN, SERUM 6.7 g/dL (6.4-8.2)
[2016-09-01] MEDS ORDERED: MAGNESIUM SULFATE 2 GM in DEXTROSE 5%-WATER 50 ML IV PRN (08:30)
[2016-09-01] MEDS ORDERED: MAGNESIUM SULFATE 4 GM/WATER 100 ML IV PRN (08:30)
[2016-09-01] MEDS ORDERED: MAGNESIUM OXIDE 400 MG TABLET PO PRN (08:30)
[2016-09-01] MEDS: FLUTICASONE PROPIONATE 50 MCG/SPRAY 16 GM NASAL SPRAY NASAL SCH (09:11)
[2016-09-01] MEDS: APIXABAN 2.5 MG TABLET PO SCH (09:11)
[2016-09-01] MEDS: ATORVASTATIN CALCIUM 10 MG TABLET PO SCH (09:12)
[2016-09-01] MEDS: CHOLECALCIFEROL (VIT D3) 5,000 UNITS CAPSULE PO SCH (09:13)
[2016-09-01] MEDS: SODIUM CHLORIDE 1 GM TABLET PO SCH (09:13)
[2016-09-01] MEDS: ACETAMINOPHEN 325 MG TABLET PO PRN (09:14)
[2016-09-01] MEDS: OMEPRAZOLE 20 MG CAPSULE PO SCH (09:14)
[2016-09-01] MEDS: CETIRIZINE HCL 10 MG TABLET PO SCH (09:14)
[2016-09-01] MEDS: DOCUSATE SODIUM 100 MG CAPSULE PO PRN (09:14)
[2016-09-01 11:50] VITALS: BP 107/57
[2016-09-01] MEDS ORDERED: BENZ-26 PO (13:19)
[2016-09-01] MEDS ORDERED: LEVO250 PO (13:21)
[2016-09-01] MEDS ORDERED: NACL1 PO (13:24)
[2016-09-01] MEDS: GuaiFENesin/D-METHORPHAN/PHENYLEPH 5 ML LIQUID ORAL.SYG PO PRN (14:30)
[2016-09-01 15:30] VITALS: BP 127/74
[2016-09-02] MEDS ORDERED: ASPIRIN 81 MG CHEWABLE TABLET PO SCH (09:00)
[2016-09-07 15:19] LABS: COCCIDIOIDES BY CF(UCDAVIS) Negative; COCCIDIOIDES INTERP.(UCDAVIS) Comment:
[2016-10-15] MEDS ORDERED: LEVO50 PO (12:22)
[2016-10-15] MEDS ORDERED: CYAN250010 PO (12:22)
== END 2016-09-01 19:00 | disposition home health service (06) | DRG 682 ==
LOC: EMS 12:08 → 5N 15:31
PROVIDERS: ADMIT Internal Medicine Geriatric Medicine; ATTEND Internal Medicine Geriatric Medicine
DX: N17.9 Acute kidney failure, unspecified (principal); J18.9 Pneumonia, unspecified organism; I13.0 Hypertensive heart and chronic kidney disease with heart failure and stage 1 through stage 4 chronic kidney disease, or unspecified chronic kidney disease; E87.1 Hypo-osmolality and hyponatremia; I50.32 Chronic diastolic (congestive) heart failure; E87.5 Hyperkalemia; I48.2 Chronic atrial fibrillation; D64.9 Anemia, unspecified; K21.9 Gastro-esophageal reflux disease without esophagitis; E78.00 Pure hypercholesterolemia, unspecified; M81.0 Age-related osteoporosis without current pathological fracture; F03.90 Unspecified dementia, unspecified severity, without behavioral disturbance, psychotic disturbance, mood disturbance, and anxiety; N18.9 Chronic kidney disease, unspecified; E78.5 Hyperlipidemia, unspecified; E83.42 Hypomagnesemia; J30.9 Allergic rhinitis, unspecified; J01.90 Acute sinusitis, unspecified; Z87.01 Personal history of pneumonia (recurrent); Z88.0 Allergy status to penicillin; Z79.899 Other long term (current) drug therapy; Z90.710 Acquired absence of both cervix and uterus; Z79.82 Long term (current) use of aspirin; Z86.73 Personal history of transient ischemic attack (TIA), and cerebral infarction without residual deficits; Z87.891 Personal history of nicotine dependence
CPT/HCPCS: 70450; 71250; 72220; 76770; 82306; 82570; 82607; 82746; 83036; 83605; 83735; 83935; 84100; 84133; 84145; 84155; 84156; 84300; 84439; 84443; 84540; 86171; 86480; 86631; 86632; 87015; 87040; 87070; 87147; 87205; 87449; 87798; 87899; 92610; 93005; 93306; 94640; 96361; 96365; 96375; 97116; 97163; 97530; 99285; J1630; J1644; J1940; J1956; J3475; J7030; J7060

== ENCOUNTER 2016-09-07 18:53 | Inpatient (IN) | payer MEDICARE, MEDICAID ==
[~2016-09-07] VITALS: Ht 167.6 cm; Wt 78.6 kg
[~2016-09-07 18:53] MED LIST changes: -AMLO2.5T PO; -BENZ1LOZ68 PO; +CETI-193 PO; -CETI-260 PO; -CIP750 PO; -FLUT16H NASAL; -HYDR-3965 PO; +LEVO250 PO; +NACL1 PO; -RAMI10 PO; +TURM500C8 PO; -TUSSI5L PO
[2016-09-07 20:00] VITALS: BP 111/67
[2016-09-07] MEDS ORDERED: ZOLPIDEM TARTRATE 5 MG TABLET PO PRN (21:30)
[2016-09-07] MEDS ORDERED: HALOPERIDOL LACTATE 5 MG/ML VIAL IVP PRN (21:30)
[2016-09-07 23:19] VITALS: BP 103/61
[2016-09-08 05:40] VITALS: BP 107/69
[2016-09-08] MEDS: LEVOTHYROXINE SODIUM 50 MCG TABLET PO SCH (06:02)
[2016-09-08 06:38] LABS: BASOPHILS % (AUTO) 0.5 % (0.0-2.0); EOSINOPHILS % (AUTO) 7.3 % (1.0-6.0); HEMOGLOBIN 10.1 g/dL (12.0-16.0); LYMPHOCYTES # (AUTO) 2.1 K/uL (1.0-4.8); LYMPHOCYTES % (AUTO) 20.2 % (22.0-44.0); MEAN CORPUSCULAR HEMOGLOBIN 26.3 pg (26.0-34.0); MEAN CORPUSCULAR HGB CONC 31.7 G/dL (31.0-37.0); MEAN CORPUSCULAR VOLUME 83 fL (80-100); MONOCYTES # (AUTO) 0.9 K/uL (0.1-1.0); MONOCYTES % (AUTO) 8.8 % (2.0-9.0); NEUTROPHILS # (AUTO) 6.5 K/uL (1.8-7.7); NEUTROPHILS % (AUTO) 63.2 % (40.0-70.0); PLATELET COUNT (AUTO) 397 K/uL (150-450); RED BLOOD CELL COUNT(AUTO) 3.85 MIL/uL (4.00-5.20); RED CELL DISTRIBUTION WIDTH 19.4 % (11.5-14.5); WHITE BLOOD COUNT (AUTO) 10.3 K/uL (4.5-11.0)
[2016-09-08 06:53] LABS: HEMOGLOBIN A1C 6.6 % (4.5-6.2)
[2016-09-08 07:09] LABS: CALCIUM, TOTAL 9.7 mg/dL (8.8-10.5); CHOL/HDL RATIO 3.7 (3.9-5.7); CREATININE 1.07 mg/dL (0.60-1.30); POTASSIUM 3.8 mmol/L (3.5-5.1); THYROID STIMULATING HORMONE 2.63 uIU/mL (0.36-3.74)
[2016-09-08] MEDS: CHOLECALCIFEROL (VIT D3) 5,000 UNITS CAPSULE PO SCH ×2 (07:28→13:45)
[2016-09-08] MEDS: MULTIVITAMINS WITH MINERALS, THERAPEUTIC TABLET PO SCH ×2 (07:28→13:45)
[2016-09-08] MEDS: OMEPRAZOLE 20 MG CAPSULE PO SCH ×2 (07:28→13:45)
[2016-09-08] MEDS: METOPROLOL TARTRATE 25 MG TABLET PO SCH ×2 (07:28→13:45)
[2016-09-08] MEDS: BENZONATATE 100 MG CAPSULE PO SCH ×3 (07:28→20:07)
[2016-09-08] MEDS: CETIRIZINE HCL 10 MG TABLET PO SCH ×2 (07:29→13:45)
[2016-09-08 07:47] VITALS: BP 122/66
[2016-09-08 08:43] LABS: ERYTHROCYTE SEDIMENTATION RATE 80 MM/HR (0-20)
[2016-09-08 08:50] LABS: RBC MORPHOLOGY COMMENT ABNORMAL RBC MORPH
[2016-09-08 08:52] LABS: INR 1.1 (0.9-1.1); PROTHROMBIN TIME 11.4 SEC (9.4-11.6)
[2016-09-08] MEDS ORDERED: FentaNYL CITRATE-PF 100 MCG/2 ML VIAL ONE (11:01)
[2016-09-08 11:02] VITALS: BP 109/61
[2016-09-08] MEDS ORDERED: GELATIN SPONGE,ABSORBABLE 12-7 MM TP ONE (11:02)
[2016-09-08] MEDS ORDERED: LIDOCAINE HCL/PF 1% 30 ML VIAL ONE (11:02)
[2016-09-08] MEDS ORDERED: MIDAZOLAM HCL 2 MG/2 ML VIAL ONE (11:02)
[2016-09-08] MEDS ORDERED: FentaNYL CITRATE-PF 100 MCG/2 ML VIAL IVP ONE (11:28)
[2016-09-08] MEDS ORDERED: MIDAZOLAM HCL 2 MG/2 ML VIAL IVP ONE (11:28)
[2016-09-08 12:31] VITALS: BP 112/43
[2016-09-08] MEDS ORDERED: 0.9% SODIUM CHLORIDE 10 ML SYRINGE IVP PRN (14:00)
[2016-09-08 15:17] VITALS: BP 99/66
[2016-09-08 19:40] VITALS: BP 100/69
[2016-09-08] MEDS: HEPARIN SODIUM,PORCINE 5,000 UNITS/ML VIAL SQ SCH (20:07)
[2016-09-08] MEDS: DOCUSATE SODIUM 100 MG CAPSULE PO PRN (20:18)
[2016-09-08] MEDS ORDERED: FERROUS SULFATE 325 MG EC TABLET PO SCH (21:00)
[2016-09-08] MEDS ORDERED: ATORVASTATIN CALCIUM 10 MG TABLET PO SCH (21:00)
[2016-09-09 00:09] VITALS: BP 118/65
[2016-09-09 04:34] VITALS: BP 123/63
[2016-09-09] MEDS: LEVOTHYROXINE SODIUM 50 MCG TABLET PO SCH (06:48)
[2016-09-09 06:51] LABS: BASOPHILS % (AUTO) 0.6 % (0.0-2.0); EOSINOPHILS % (AUTO) 7.8 % (1.0-6.0); HEMATOCRIT 32.6 % (36-46); HEMOGLOBIN 9.9 g/dL (12.0-16.0); LYMPHOCYTES # (AUTO) 2.1 K/uL (1.0-4.8); MEAN CORPUSCULAR HEMOGLOBIN 25.6 pg (26.0-34.0); MEAN CORPUSCULAR HGB CONC 30.5 G/dL (31.0-37.0); MEAN CORPUSCULAR VOLUME 84 fL (80-100); MONOCYTES # (AUTO) 0.8 K/uL (0.1-1.0); MONOCYTES % (AUTO) 8.2 % (2.0-9.0); NEUTROPHILS # (AUTO) 6.5 K/uL (1.8-7.7); NEUTROPHILS % (AUTO) 63.4 % (40.0-70.0); PLATELET COUNT (AUTO) 389 K/uL (150-450); RED BLOOD CELL COUNT(AUTO) 3.88 MIL/uL (4.00-5.20); RED CELL DISTRIBUTION WIDTH 19.4 % (11.5-14.5); WHITE BLOOD COUNT (AUTO) 10.3 K/uL (4.5-11.0)
[2016-09-09 07:02] LABS: RBC MORPHOLOGY COMMENT ABNORMAL RBC MORPH
[2016-09-09 07:20] VITALS: BP 121/63
[2016-09-09 07:20] LABS: ALBUMIN 2.6 g/dL (3.4-5.0); BILIRUBIN,TOTAL 0.3 mg/dL (0.1-1.0); CALCIUM, TOTAL 9.2 mg/dL (8.8-10.5); CREATININE 1.11 mg/dL (0.60-1.30); MAGNESIUM 1.7 mg/dL (1.80-2.40); POTASSIUM 4.1 mmol/L (3.5-5.1); TOTAL PROTEIN, SERUM 6.2 g/dL (6.4-8.2)
[2016-09-09 07:24] LABS: INR 1.1 (0.9-1.1); PROTHROMBIN TIME 11.4 SEC (9.4-11.6)
[2016-09-09] MEDS: MULTIVITAMINS WITH MINERALS, THERAPEUTIC TABLET PO SCH (08:02)
[2016-09-09] MEDS: DOCUSATE SODIUM 100 MG CAPSULE PO PRN (08:02)
[2016-09-09] MEDS: OMEPRAZOLE 20 MG CAPSULE PO SCH (08:03)
[2016-09-09] MEDS: BENZONATATE 100 MG CAPSULE PO SCH (08:05)
[2016-09-09] MEDS: CHOLECALCIFEROL (VIT D3) 5,000 UNITS CAPSULE PO SCH (08:05)
[2016-09-09] MEDS: METOPROLOL TARTRATE 25 MG TABLET PO SCH ×2 (08:06→09:00)
[2016-09-09] MEDS: CETIRIZINE HCL 10 MG TABLET PO SCH (08:06)
[2016-09-09] MEDS: HEPARIN SODIUM,PORCINE 5,000 UNITS/ML VIAL SQ SCH (09:44)
[2016-09-09 11:08] VITALS: BP 123/64
[2016-09-09 15:14] VITALS: BP 122/71
[2016-09-09] MEDS ORDERED: MAGNESIUM OXIDE 400 MG TABLET PO ONE (15:15)
== END 2016-09-09 19:05 | disposition home or self-care (01) | DRG 197 ==
LOC: 5N 19:05
PROVIDERS: ADMIT Internal Medicine Geriatric Medicine; ATTEND Internal Medicine Geriatric Medicine
PROC: 0BBF3ZX Excision of Right Lower Lung Lobe, Percutaneous Approach, Diagnostic (ICD-10-PCS; principal; 2016-09-08)
DX: J84.116 Cryptogenic organizing pneumonia (principal); E87.1 Hypo-osmolality and hyponatremia; N17.9 Acute kidney failure, unspecified; I11.0 Hypertensive heart disease with heart failure; F03.90 Unspecified dementia, unspecified severity, without behavioral disturbance, psychotic disturbance, mood disturbance, and anxiety; E78.5 Hyperlipidemia, unspecified; D64.9 Anemia, unspecified; Z53.29 Procedure and treatment not carried out because of patient's decision for other reasons; I48.2 Chronic atrial fibrillation; I50.9 Heart failure, unspecified; M81.0 Age-related osteoporosis without current pathological fracture; K21.9 Gastro-esophageal reflux disease without esophagitis; J30.9 Allergic rhinitis, unspecified; Z83.1 Family history of other infectious and parasitic diseases; Z20.1 Contact with and (suspected) exposure to tuberculosis; E87.5 Hyperkalemia; E83.42 Hypomagnesemia; R91.8 Other nonspecific abnormal finding of lung field; Z90.710 Acquired absence of both cervix and uterus; Z87.01 Personal history of pneumonia (recurrent); Z88.0 Allergy status to penicillin; Z91.040 Latex allergy status; Z79.2 Long term (current) use of antibiotics; Z79.82 Long term (current) use of aspirin; Z79.899 Other long term (current) drug therapy; Z86.73 Personal history of transient ischemic attack (TIA), and cerebral infarction without residual deficits
CPT/HCPCS: 32405; 82306; 82607; 82746; 83036; 83735; 84439; 84443; 85651; 86140; 87015; 87070; 87081; 87101; 87176; 87205; 88305; 88312; 88313; 93005; J1630; J1644; J2250; J3010; J3490

== ENCOUNTER → 2016-09-18 | Outpatient (CLI) | payer MEDICARE, MEDICAID ==
[~2016-09-18] MED LIST changes: -LEVO250 PO; -NACL1 PO
[2016-09-18 12:06] LABS: BASOPHILS % (AUTO) 0.9 % (0.0-2.0); EOSINOPHILS % (AUTO) 5.6 % (1.0-6.0); HEMATOCRIT 36.3 % (36-46); HEMOGLOBIN 11.3 g/dL (12.0-16.0); LYMPHOCYTES # (AUTO) 1.7 K/uL (1.0-4.8); LYMPHOCYTES % (AUTO) 18.6 % (22.0-44.0); MEAN CORPUSCULAR HEMOGLOBIN 26.4 pg (26.0-34.0); MEAN CORPUSCULAR VOLUME 85 fL (80-100); MONOCYTES # (AUTO) 0.6 K/uL (0.1-1.0); MONOCYTES % (AUTO) 6.8 % (2.0-9.0); NEUTROPHILS # (AUTO) 6.3 K/uL (1.8-7.7); NEUTROPHILS % (AUTO) 68.1 % (40.0-70.0); PLATELET COUNT (AUTO) 382 K/uL (150-450); RED BLOOD CELL COUNT(AUTO) 4.26 MIL/uL (4.00-5.20); RED CELL DISTRIBUTION WIDTH 21.1 % (11.5-14.5); WHITE BLOOD COUNT (AUTO) 9.2 K/uL (4.5-11.0)
[2016-09-18 12:21] LABS: ALBUMIN 3.3 g/dL (3.4-5.0); BILIRUBIN,TOTAL 0.5 mg/dL (0.1-1.0); CALCIUM, TOTAL 9.6 mg/dL (8.8-10.5); CHOL/HDL RATIO 3.2 (3.9-5.7); CREATININE 1.28 mg/dL (0.60-1.30); POTASSIUM 4.3 mmol/L (3.5-5.1); TOTAL PROTEIN, SERUM 7.3 g/dL (6.4-8.2)
[2016-09-18 12:24] LABS: HEMOGLOBIN A1C 5.9 % (4.5-6.2)
[2016-09-18 13:18] LABS: RBC MORPHOLOGY COMMENT ABNORMAL RBC MORPH
== END | disposition home or self-care (01) ==
LOC: LABPV 11:09
PROVIDERS: ATTEND Internal Medicine Cardiovascular Disease
DX: I11.0 Hypertensive heart disease with heart failure (principal); I50.9 Heart failure, unspecified; E11.8 Type 2 diabetes mellitus with unspecified complications
CPT/HCPCS: 83036

== ENCOUNTER → 2016-10-14 | Outpatient (CLI) | payer MEDICARE, MEDICAID ==
[~2016-10-14] MED LIST changes: +CYAN250010 PO; +LEVO50 PO; +TURM500C3 PO; -TURM500C8 PO
== END | disposition home or self-care (01) ==
LOC: RADMN 12:33
PROVIDERS: ATTEND Legal Medicine
DX: J18.9 Pneumonia, unspecified organism (principal); R91.8 Other nonspecific abnormal finding of lung field; I70.0 Atherosclerosis of aorta; I25.10 Atherosclerotic heart disease of native coronary artery without angina pectoris; J98.09 Other diseases of bronchus, not elsewhere classified; M47.814 Spondylosis without myelopathy or radiculopathy, thoracic region; I51.7 Cardiomegaly
CPT/HCPCS: 71020; 71250

== ENCOUNTER → 2016-10-15 | Outpatient (CLI) | payer MEDICARE, MEDICAID ==
[~2016-10-15] VITALS: Ht 157.5 cm; Wt 75.0 kg
[2016-10-15 12:14] VITALS: BP 126/75
== END | disposition home or self-care (01) ==
LOC: SRCNTR 11:55
PROVIDERS: ATTEND Internal Medicine Critical Care Medicine
DX: I10 Essential (primary) hypertension (principal); E78.5 Hyperlipidemia, unspecified; I48.2 Chronic atrial fibrillation; J30.9 Allergic rhinitis, unspecified; R91.8 Other nonspecific abnormal finding of lung field; K21.9 Gastro-esophageal reflux disease without esophagitis; M81.0 Age-related osteoporosis without current pathological fracture; Z86.73 Personal history of transient ischemic attack (TIA), and cerebral infarction without residual deficits
CPT/HCPCS: G0463

== ENCOUNTER → 2016-10-21 | Outpatient (CLI) | payer MEDICARE, MEDICAID ==
[~2016-10-21] VITALS: Ht 157.5 cm; Wt 75.0 kg
[2016-10-21 14:59] VITALS: BP 133/70
== END | disposition home or self-care (01) ==
LOC: SRCNTR 14:47
PROVIDERS: ATTEND Internal Medicine Infectious Disease
DX: A31.0 Pulmonary mycobacterial infection (principal); J84.89 Other specified interstitial pulmonary diseases; I10 Essential (primary) hypertension; I48.91 Unspecified atrial fibrillation; E78.5 Hyperlipidemia, unspecified; F03.90 Unspecified dementia, unspecified severity, without behavioral disturbance, psychotic disturbance, mood disturbance, and anxiety; M06.9 Rheumatoid arthritis, unspecified; Z86.73 Personal history of transient ischemic attack (TIA), and cerebral infarction without residual deficits; Z88.0 Allergy status to penicillin
CPT/HCPCS: G0463

== ENCOUNTER → 2016-11-23 | Outpatient (CLI) | payer MEDICARE, MEDICAID | END | disposition home or self-care (01) | LOC: LABPV 09:57 | PROVIDERS: ATTEND Internal Medicine Infectious Disease | DX: A31.0 Pulmonary mycobacterial infection (principal) ==

== ENCOUNTER → 2016-11-23 | Outpatient (CLI) | payer MEDICARE, MEDICAID ==
[2016-11-23 12:58] LABS: BASOPHILS % (AUTO) 0.7 % (0.0-2.0); EOSINOPHILS % (AUTO) 5.8 % (1.0-6.0); HEMATOCRIT 39.7 % (36-46); HEMOGLOBIN 13.2 g/dL (12.0-16.0); LYMPHOCYTES # (AUTO) 1.3 K/uL (1.0-4.8); LYMPHOCYTES % (AUTO) 24.9 % (22.0-44.0); MEAN CORPUSCULAR HEMOGLOBIN 28.6 pg (26.0-34.0); MEAN CORPUSCULAR HGB CONC 33.2 G/dL (31.0-37.0); MEAN CORPUSCULAR VOLUME 86 fL (80-100); MONOCYTES # (AUTO) 0.4 K/uL (0.1-1.0); MONOCYTES % (AUTO) 7.8 % (2.0-9.0); NEUTROPHILS # (AUTO) 3.2 K/uL (1.8-7.7); NEUTROPHILS % (AUTO) 60.8 % (40.0-70.0); PLATELET COUNT (AUTO) 252 K/uL (150-450); RED CELL DISTRIBUTION WIDTH 16.8 % (11.5-14.5); WHITE BLOOD COUNT (AUTO) 5.3 K/uL (4.5-11.0)
[2016-11-23 13:14] LABS: HEMOGLOBIN A1C 5.5 % (4.5-6.2)
[2016-11-23 13:42] LABS: ALBUMIN 3.7 g/dL (3.4-5.0); BILIRUBIN,TOTAL 0.4 mg/dL (0.1-1.0); CREATININE 0.97 mg/dL (0.60-1.30); POTASSIUM 4.3 mmol/L (3.5-5.1); THYROID STIMULATING HORMONE 2.88 uIU/mL (0.36-3.74); TOTAL PROTEIN, SERUM 7.6 g/dL (6.4-8.2)
== END | disposition home or self-care (01) ==
LOC: LABPV 09:52
PROVIDERS: ATTEND Internal Medicine Cardiovascular Disease
DX: I11.0 Hypertensive heart disease with heart failure (principal); I50.9 Heart failure, unspecified; E55.9 Vitamin D deficiency, unspecified; E11.8 Type 2 diabetes mellitus with unspecified complications
CPT/HCPCS: 82306; 83036; 83735; 84439; 84443

== ENCOUNTER → 2017-01-29 | Outpatient (CLI) | payer MEDICARE, MEDICAID ==
[~2017-01-29] MED LIST changes: -BENZ-26 PO; +BENZ-51 PO
== END | disposition home or self-care (01) ==
LOC: RADPV 09:56
PROVIDERS: ATTEND Legal Medicine
DX: A31.0 Pulmonary mycobacterial infection (principal); I70.0 Atherosclerosis of aorta
CPT/HCPCS: 71020

== ENCOUNTER → 2017-02-23 | Outpatient (CLI) | payer MEDICARE, MEDICAID ==
[2017-02-23 11:59] LABS: BASOPHILS # (AUTO) 0.03 K/uL (0.00-0.20); BASOPHILS % (AUTO) 0.5 % (0.0-2.0); EOSINOPHILS % (AUTO) 3.48 % (1.0-6.0); HEMATOCRIT 39.4 % (36-46); HEMOGLOBIN 12.9 g/dL (12.0-16.0); LYMPHOCYTES # (AUTO) 1.5 K/uL (1.0-4.8); LYMPHOCYTES % (AUTO) 26.5 % (22.0-44.0); MEAN CORPUSCULAR HEMOGLOBIN 28.5 pg (26.0-34.0); MEAN CORPUSCULAR HGB CONC 32.8 G/dL (31.0-37.0); MEAN CORPUSCULAR VOLUME 87 fL (80-100); MONOCYTES # (AUTO) 0.5 K/uL (0.1-1.0); MONOCYTES % (AUTO) 7.7 % (2.0-9.0); NEUTROPHILS # (AUTO) 3.6 K/uL (1.8-7.7); NEUTROPHILS % (AUTO) 61.8 % (40.0-70.0); PLATELET COUNT (AUTO) 215 K/uL (150-450); RED BLOOD CELL COUNT(AUTO) 4.53 MIL/uL (4.00-5.20); RED CELL DISTRIBUTION WIDTH 18.3 % (11.5-14.5)
[2017-02-23 12:18] LABS: ALANINE AMINOTRANSFERASE 44 U/L (12-78); ALBUMIN 3.7 g/dL (3.4-5.0); ALKALINE PHOSPHATASE 171 U/L (46-116); ANION GAP 8 mmol/L (8-16); ASPARTATE AMINOTRANSFERASE 43 U/L (15-37); BILIRUBIN,TOTAL 0.5 mg/dL (0.1-1.0); CALCIUM, TOTAL 9.1 mg/dL (8.8-10.5); CARBON DIOXIDE 25 mmol/L (22-29); CHLORIDE 104 mmol/L (98-107); CHOL/HDL RATIO 2.7 (3.9-5.7); CHOLESTEROL 203 mg/dL (131-200); GLOMERULAR FILTR. RATE CALC > 60 mL/min (>60); GLUCOSE,RANDOM 82 mg/dL (70-110); HDL CHOLESTEROL 75 mg/dL (40-60); LDL CHOL (CALC.) 105 mg/dL (0-130); POTASSIUM 4.4 mmol/L (3.5-5.1); SODIUM SERUM 137 mmol/L (136-145); TOTAL PROTEIN, SERUM 7.3 g/dL (6.4-8.2); TRIGLYCERIDES 117 mg/dL (15-150); UREA NITROGEN, BLOOD 17 mg/dL (7-18)
== END | disposition home or self-care (01) ==
LOC: LABPV 09:15
PROVIDERS: ATTEND Internal Medicine Cardiovascular Disease
DX: I11.0 Hypertensive heart disease with heart failure (principal); I50.9 Heart failure, unspecified; E11.65 Type 2 diabetes mellitus with hyperglycemia; E55.9 Vitamin D deficiency, unspecified

== ENCOUNTER → 2017-06-02 | Outpatient (CLI) | payer MEDICARE, MEDICAID ==
[2017-06-02 12:41] LABS: ALANINE AMINOTRANSFERASE 27 U/L (12-78); ALBUMIN 3.7 g/dL (3.4-5.0); ALKALINE PHOSPHATASE 161 U/L (46-116); ANION GAP 5 mmol/L (8-16); ASPARTATE AMINOTRANSFERASE 27 U/L (15-37); BILIRUBIN,TOTAL 0.5 mg/dL (0.1-1.0); CALCIUM, TOTAL 9.5 mg/dL (8.8-10.5); CARBON DIOXIDE 28 mmol/L (22-29); CHLORIDE 102 mmol/L (98-107); CREATININE 0.81 mg/dL (0.60-1.30); GLOMERULAR FILTR. RATE CALC > 60 mL/min (>60); GLUCOSE,RANDOM 89 mg/dL (70-110); POTASSIUM 4.7 mmol/L (3.5-5.1); SODIUM SERUM 135 mmol/L (136-145); TOTAL PROTEIN, SERUM 7.6 g/dL (6.4-8.2); UREA NITROGEN, BLOOD 16 mg/dL (7-18)
== END | disposition home or self-care (01) ==
LOC: LABPV 11:24
PROVIDERS: ATTEND Internal Medicine Cardiovascular Disease
DX: I11.0 Hypertensive heart disease with heart failure (principal); I50.9 Heart failure, unspecified; E11.8 Type 2 diabetes mellitus with unspecified complications; E55.9 Vitamin D deficiency, unspecified

== ENCOUNTER 2017-06-18 17:37 | Emergency (ER) | payer MEDICARE, MEDICAID ==
[~2017-06-18] VITALS: Ht 165.1 cm; Wt 85.2 kg
[2017-06-18] MEDS ORDERED: IOVERSOL 350 MG/ML 100 ML VIAL ONE (17:55)
[2017-06-18] MEDS ORDERED: BIOT1CAP3 PO (18:04)
[2017-06-18] MEDS ORDERED: FLUT16H NASAL (18:04)
[2017-06-18 18:21] LABS: BASOPHILS % (AUTO) 0.6 % (0.0-2.0); EOSINOPHILS % (AUTO) 2.6 % (1.0-6.0); HEMOGLOBIN 13.9 g/dL (12.0-16.0); LYMPHOCYTES # (AUTO) 1.9 K/uL (1.0-4.8); LYMPHOCYTES % (AUTO) 25.7 % (22.0-44.0); MEAN CORPUSCULAR HEMOGLOBIN 28.4 pg (26.0-34.0); MEAN CORPUSCULAR HGB CONC 33.1 G/dL (31.0-37.0); MEAN CORPUSCULAR VOLUME 86 fL (80-100); MONOCYTES # (AUTO) 0.6 K/uL (0.1-1.0); MONOCYTES % (AUTO) 8.5 % (2.0-9.0); NEUTROPHILS # (AUTO) 4.6 K/uL (1.8-7.7); NEUTROPHILS % (AUTO) 62.6 % (40.0-70.0); PLATELET COUNT (AUTO) 228 K/uL (150-450); RED BLOOD CELL COUNT(AUTO) 4.89 MIL/uL (4.00-5.20); RED CELL DISTRIBUTION WIDTH 15.5 % (11.5-14.5)
[2017-06-18 18:24] LABS: ANION GAP 10 mmol/L (8-16); CALCIUM, TOTAL 9.2 mg/dL (8.8-10.5); CARBON DIOXIDE 28 mmol/L (22-29); CHLORIDE 98 mmol/L (98-107); CREATININE 0.85 mg/dL (0.60-1.30); GLOMERULAR FILTR. RATE CALC > 60 mL/min (>60); GLUCOSE,RANDOM 116 mg/dL (70-110); POTASSIUM 4.1 mmol/L (3.5-5.1); SODIUM SERUM 136 mmol/L (136-145); UREA NITROGEN, BLOOD 13 mg/dL (7-18)
[2017-06-18] MEDS ORDERED: WATER FOR INJECTION STERILE IV ONE (18:30)
[2017-06-18] MEDS ORDERED: ALTEPLASE 7.7 MG in WATER FOR INJECTION,STERILE 7.7 ML IV ONE (18:30)
[2017-06-18] MEDS ORDERED: ALTEPLASE IV ONE (18:30)
[2017-06-18] MEDS ORDERED: ALTEPLASE PER STROKE PROTOCOL CLINICAL ONE (18:30)
[2017-06-18 18:31] LABS: ALANINE AMINOTRANSFERASE 34 U/L (12-78); ALBUMIN 3.8 g/dL (3.4-5.0); ALKALINE PHOSPHATASE 167 U/L (46-116); ASPARTATE AMINOTRANSFERASE 27 U/L (15-37); BILIRUBIN,TOTAL 0.3 mg/dL (0.1-1.0); CREATINE KINASE, TOTAL 45 U/L (26-192); TOTAL PROTEIN, SERUM 7.6 g/dL (6.4-8.2)
[2017-06-18 19:04] LABS: PROTHROMBIN TIME 10.3 SEC (9.4-11.6)
[2017-06-18 19:25] VITALS: BP 172/118
[2017-06-18] MEDS ORDERED: NITR25OR3 PO (19:27)
== END 2017-06-18 20:03 | disposition short-term general hospital (02) ==
LOC: EMS 17:39
DX: I63.9 Cerebral infarction, unspecified (principal); I66.02 Occlusion and stenosis of left middle cerebral artery; I48.91 Unspecified atrial fibrillation; K21.9 Gastro-esophageal reflux disease without esophagitis; E78.00 Pure hypercholesterolemia, unspecified; I10 Essential (primary) hypertension; M81.0 Age-related osteoporosis without current pathological fracture; Z88.0 Allergy status to penicillin; Z91.040 Latex allergy status; Z79.899 Other long term (current) drug therapy
CPT/HCPCS: 37195; 70450; 70496; 71045; 80053; 82550; 84484; 85025; 85610; 85730; 93005; 99291; 99292; J2997; Q9967

== ENCOUNTER 2017-09-10 12:42 | Inpatient (IN) | payer MEDICARE, MEDICAID ==
[~2017-09-10] VITALS: Ht 160 cm; Wt 83.0 kg
[~2017-09-10 12:42] MED LIST changes: +ATOR10TA84 GT; -ATOR10TA84 PO; +BIOT1CAP3 PO; +DSS100 GT; -DSS100 PO; +FLUT16H NASAL; +LEVO50 GT; -LEVO50 PO; +NITR25OR3 PO; +OMEP20 GT; -OMEP20 PO
[2017-09-10] MEDS ORDERED: CARV3 GT (13:26)
[2017-09-10] MEDS ORDERED: POTA20LI36 PO (13:26)
[2017-09-10] MEDS ORDERED: FE PR (13:26)
[2017-09-10] MEDS ORDERED: GUAIF10 GT (13:26)
[2017-09-10] MEDS ORDERED: MOM30 PO (13:26)
[2017-09-10] MEDS ORDERED: L. A1CAP11 GT (13:26)
[2017-09-10] MEDS ORDERED: ENOX40DI9 SQ (13:26)
[2017-09-10] MEDS ORDERED: GABA250S2 GT (13:26)
[2017-09-10] MEDS ORDERED: IPRA3AMP4 IH (13:26)
[2017-09-10] MEDS ORDERED: ACET1TAB12 GT (13:26)
[2017-09-10] MEDS ORDERED: GABA-529 GT (13:26)
[2017-09-10] MEDS ORDERED: FURO40 PO (13:26)
[2017-09-10] MEDS ORDERED: AMLO-512 GT (13:26)
[2017-09-10] MEDS ORDERED: DIGO-44 GT (13:26)
[2017-09-10] MEDS ORDERED: CETI-290 GT (13:26)
[2017-09-10 14:30] LABS: BASOPHILS % (AUTO) 0.8 % (0.0-2.0); EOSINOPHILS % (AUTO) 6.7 % (1.0-6.0); HEMATOCRIT 34.9 % (36-46); HEMOGLOBIN 11.8 g/dL (12.0-16.0); LYMPHOCYTES # (AUTO) 1.4 K/uL (1.0-4.8); LYMPHOCYTES % (AUTO) 9.3 % (22.0-44.0); MEAN CORPUSCULAR VOLUME 85 fL (80-100); MONOCYTES # (AUTO) 0.7 K/uL (0.1-1.0); MONOCYTES % (AUTO) 4.8 % (2.0-9.0); NEUTROPHILS # (AUTO) 11.4 K/uL (1.8-7.7); NEUTROPHILS % (AUTO) 78.4 % (40.0-70.0); PLATELET COUNT (AUTO) 319 K/uL (150-450); RED BLOOD CELL COUNT(AUTO) 4.09 MIL/uL (4.00-5.20); RED CELL DISTRIBUTION WIDTH 16.1 % (11.5-14.5)
[2017-09-10 14:40] LABS: ANION GAP 4 mmol/L (8-16); CALCIUM, TOTAL 8.8 mg/dL (8.8-10.5); CARBON DIOXIDE 34 mmol/L (22-29); CHLORIDE 93 mmol/L (98-107); CREATININE 0.85 mg/dL (0.60-1.30); GLOMERULAR FILTR. RATE CALC > 60 mL/min (>60); GLUCOSE,RANDOM 145 mg/dL (70-110); POTASSIUM 4.8 mmol/L (3.5-5.1); SODIUM SERUM 131 mmol/L (136-145); UREA NITROGEN, BLOOD 24 mg/dL (7-18)
[2017-09-10 14:44] LABS: PROTHROMBIN TIME 10.4 SEC (9.4-11.6)
[2017-09-10] MEDS ORDERED: FUROSEMIDE 40 MG/4 ML VIAL IVP ONE (14:45)
[2017-09-10 14:55] LABS: B-TYPE NATRIURETIC PEPTIDE 427 pg/mL (0-100)
[2017-09-10 14:56] LABS: ALANINE AMINOTRANSFERASE 104 U/L (12-78); ALBUMIN 2.8 g/dL (3.4-5.0); ALKALINE PHOSPHATASE 209 U/L (46-116); ASPARTATE AMINOTRANSFERASE 59 U/L (15-37); BILIRUBIN,TOTAL 0.4 mg/dL (0.1-1.0); CREATINE KINASE, TOTAL 13 U/L (26-192); FREE T4 (FREE THYROXINE) 1.13 ng/dL (0.76-1.46); THYROID STIMULATING HORMONE 12.57 uIU/mL (0.36-3.74); TOTAL PROTEIN, SERUM 7.4 g/dL (6.4-8.2)
[2017-09-10 15:24] LABS: DIGOXIN 2.48 ng/mL (0.90-2.00)
[2017-09-10 16:22] LABS: GLUCOSE,POINT OF CARE 105 MG/DL (70-110)
[2017-09-10 18:17] LABS: APPEARANCE,URINE CLEAR (CLEAR); BILIRUBIN,URINE NEGATIVE (NEGATIVE); GLUCOSE, URINE (UA) NEGATIVE (NEGATIVE); KETONES,URINE NEGATIVE (NEGATIVE); LEUKOCYTE ESTERASE ,URINE MODERATE (NEGATIVE); NITRATE,URINE NEGATIVE (NEGATIVE); OCCULT BLOOD,URINE NEGATIVE (NEGATIVE); PROTEIN,URINE NEGATIVE (NEGATIVE); UROBILINOGEN,URINE 0.2 mg/dL (<=1.0)
[2017-09-10 18:25] LABS: RBC,URINE None Seen /HPF (0-2)
[2017-09-10 18:26] LABS: BACTERIA,URINE Rare /HPF (None Seen); SQUAMOUS EPITHELIAL CELL,UR Few /LPF (None Seen)
[2017-09-10 18:27] LABS: TRANSITIONAL EPI CELLS,URINE Rare /LPF (None Seen)
[2017-09-10] MEDS ORDERED: LEVOFLOXACIN 500 MG/D5% WATER 100 ML IV ONE (18:45)
[2017-09-10] MEDS ORDERED: 0.9% SODIUM CHLORIDE 10 ML SYRINGE IVP PRN (19:45)
[2017-09-10] MEDS ORDERED: ONDANSETRON HCL 4 MG/2 ML VIAL IVP PRN (19:45)
[2017-09-10] MEDS ORDERED: ACETAMINOPHEN 325 MG TABLET PO PRN (19:45)
[2017-09-10 19:52] LABS: GLUCOSE,POINT OF CARE 117 MG/DL (70-110)
[2017-09-10] MEDS: ALBUTEROL SULFATE 2.5 MG/0.5 ML NEB SOLUTION NEB SCH (20:47)
[2017-09-10] MEDS: IPRATROPIUM BROMIDE 0.5 MG/2.5 ML NEB SOLUTION NEB SCH (20:47)
[2017-09-10 20:58] VITALS: BP 105/60
[2017-09-10 23:47] VITALS: BP 106/66
[2017-09-11] MEDS: IPRATROPIUM BROMIDE 0.5 MG/2.5 ML NEB SOLUTION NEB SCH ×4 (01:33→23:15)
[2017-09-11] MEDS: ALBUTEROL SULFATE 2.5 MG/0.5 ML NEB SOLUTION NEB SCH ×4 (01:33→23:15)
[2017-09-11 04:49] VITALS: BP 113/71
[2017-09-11 06:54] LABS: BASOPHILS % (AUTO) 0.5 % (0.0-2.0); EOSINOPHILS % (AUTO) 6.9 % (1.0-6.0); HEMATOCRIT 34.8 % (36-46); HEMOGLOBIN 12.1 g/dL (12.0-16.0); LYMPHOCYTES # (AUTO) 1.3 K/uL (1.0-4.8); LYMPHOCYTES % (AUTO) 10.7 % (22.0-44.0); MEAN CORPUSCULAR HEMOGLOBIN 29.5 pg (26.0-34.0); MEAN CORPUSCULAR HGB CONC 34.8 G/dL (31.0-37.0); MEAN CORPUSCULAR VOLUME 85 fL (80-100); MONOCYTES # (AUTO) 0.7 K/uL (0.1-1.0); MONOCYTES % (AUTO) 5.3 % (2.0-9.0); NEUTROPHILS # (AUTO) 9.6 K/uL (1.8-7.7); NEUTROPHILS % (AUTO) 76.6 % (40.0-70.0); PLATELET COUNT (AUTO) 319 K/uL (150-450); RED BLOOD CELL COUNT(AUTO) 4.11 MIL/uL (4.00-5.20); RED CELL DISTRIBUTION WIDTH 15.9 % (11.5-14.5)
[2017-09-11 07:30] LABS: ALANINE AMINOTRANSFERASE 78 U/L (12-78); ALBUMIN 2.6 g/dL (3.4-5.0); ALKALINE PHOSPHATASE 178 U/L (46-116); ANION GAP 4 mmol/L (8-16); ASPARTATE AMINOTRANSFERASE 42 U/L (15-37); BILIRUBIN,TOTAL 0.4 mg/dL (0.1-1.0); CALCIUM, TOTAL 9.2 mg/dL (8.8-10.5); CARBON DIOXIDE 34 mmol/L (22-29); CHLORIDE 94 mmol/L (98-107); CREATININE 0.81 mg/dL (0.60-1.30); GLOMERULAR FILTR. RATE CALC > 60 mL/min (>60); GLUCOSE,RANDOM 108 mg/dL (70-110); POTASSIUM 4.1 mmol/L (3.5-5.1); SODIUM SERUM 132 mmol/L (136-145); TOTAL PROTEIN, SERUM 6.8 g/dL (6.4-8.2); UREA NITROGEN, BLOOD 20 mg/dL (7-18)
[2017-09-11 07:33] VITALS: BP 98/53
[2017-09-11] MEDS ORDERED: DEXTROSE 50%-WATER 25 GM/50 ML SYRINGE IVP PRN (08:30)
[2017-09-11] MEDS ORDERED: HEPARIN SODIUM,PORCINE 5,000 UNITS/ML VIAL SQ SCH (09:00)
[2017-09-11 09:37] LABS: B-TYPE NATRIURETIC PEPTIDE 280 pg/mL (0-100); CHOL/HDL RATIO 3.7 (3.9-5.7); CHOLESTEROL 132 mg/dL (131-200); HDL CHOLESTEROL 36 mg/dL (40-60); LDL CHOL (CALC.) 76 mg/dL (0-130); THYROID STIMULATING HORMONE 10.59 uIU/mL (0.36-3.74); TRIGLYCERIDES 98 mg/dL (15-150)
[2017-09-11] MEDS ORDERED: [UNRECOGNIZED DRUG - OTHER] PO SCH (10:45)
[2017-09-11] MEDS ORDERED: IPRATROPIUM BROMIDE 0.5 MG/2.5 ML NEB SOLUTION NEB PRN (10:45)
[2017-09-11] MEDS ORDERED: AmLODIPine BESYLATE 10 MG TABLET GT SCH (10:45)
[2017-09-11] MEDS ORDERED: [UNRECOGNIZED DRUG - OTHER] PO SCH (10:45)
[2017-09-11] MEDS ORDERED: ALBUTEROL SULFATE 2.5 MG/0.5 ML NEB SOLUTION NEB PRN (10:45)
[2017-09-11] MEDS ORDERED: LEVOTHYROXINE SODIUM 50 MCG TABLET GT SCH (10:45)
[2017-09-11] MEDS ORDERED: [UNRECOGNIZED DRUG - OTHER] PO SCH (10:45)
[2017-09-11] MEDS ORDERED: HYDROCODONE/ACETAMINOPHEN 5-325 MG TABLET GT PRN (10:45)
[2017-09-11] MEDS ORDERED: 0.9% SODIUM CHLORIDE 10 ML SYRINGE IVP PRN (10:45)
[2017-09-11] MEDS: METOPROLOL TARTRATE 25 MG TABLET GT SCH ×2 (10:45→21:56)
[2017-09-11] MEDS ORDERED: CYANOCOBALAMIN 5000 MCG PO SCH (10:45)
[2017-09-11 12:06] VITALS: BP 121/59
[2017-09-11] MEDS: ATORVASTATIN CALCIUM 10 MG TABLET GT SCH (12:13)
[2017-09-11] MEDS: FUROSEMIDE 40 MG/4 ML VIAL IVP SCH (12:13)
[2017-09-11] MEDS: CARVEDILOL 3.125 MG TABLET GT SCH ×2 (12:13→21:57)
[2017-09-11] MEDS: ASPIRIN 81 MG CHEWABLE TABLET GT SCH (12:13)
[2017-09-11] MEDS ORDERED: GABAPENTIN 100 MG CAPSULE GT SCH (13:00)
[2017-09-11] MEDS ORDERED: IPRATROPIUM BROMIDE 0.5 MG/2.5 ML NEB SOLUTION NEB SCH (15:00)
[2017-09-11] MEDS ORDERED: ALBUTEROL SULFATE 2.5 MG/0.5 ML NEB SOLUTION NEB SCH (15:00)
[2017-09-11] MEDS: BENZONATATE 100 MG CAPSULE GT SCH (15:58)
[2017-09-11] MEDS: DOCUSATE SODIUM 250 MG CAPSULE GT SCH ×2 (15:58→21:00)
[2017-09-11] MEDS ORDERED: MISC MED-CONVERTED FROM AMBULATORY (Ipratropium/Albuterol Sulfate (Duoneb 2.5-0.5 Mg/3 Ml IH SCH (16:00)
[2017-09-11 16:36] VITALS: BP 107/57
[2017-09-11] MEDS: OMEPRAZOLE 20 MG CAPSULE PO SCH (17:12)
[2017-09-11] MEDS: MetFORMIN HCL 500 MG TABLET PO SCH (17:13)
[2017-09-11] MEDS: INSULIN REGULAR, HUMAN 100 UNITS/ML SQ PRN ×2 (17:14→22:35)
[2017-09-11] MEDS ORDERED: HEPARIN SODIUM 25000 UNITS/D5W 250 ML IV PRN (18:28)
[2017-09-11] MEDS ORDERED: HEPARIN SODIUM,PORCINE 5,000 UNITS/ML VIAL IVP ONE (18:30)
[2017-09-11] MEDS ORDERED: HEPARIN SODIUM,PORCINE 5,000 UNITS/ML VIAL IVP PRN ×2 (18:30)
[2017-09-11 18:56] LABS: BASOPHILS % (AUTO) 0.5 % (0.0-2.0); EOSINOPHILS % (AUTO) 5.9 % (1.0-6.0); HEMOGLOBIN 12.7 g/dL (12.0-16.0); LYMPHOCYTES # (AUTO) 1.3 K/uL (1.0-4.8); LYMPHOCYTES % (AUTO) 10.1 % (22.0-44.0); MEAN CORPUSCULAR HEMOGLOBIN 29.1 pg (26.0-34.0); MEAN CORPUSCULAR HGB CONC 34.3 G/dL (31.0-37.0); MEAN CORPUSCULAR VOLUME 85 fL (80-100); MONOCYTES # (AUTO) 0.7 K/uL (0.1-1.0); MONOCYTES % (AUTO) 5.8 % (2.0-9.0); NEUTROPHILS # (AUTO) 9.6 K/uL (1.8-7.7); NEUTROPHILS % (AUTO) 77.7 % (40.0-70.0); PLATELET COUNT (AUTO) 358 K/uL (150-450); RED BLOOD CELL COUNT(AUTO) 4.36 MIL/uL (4.00-5.20); RED CELL DISTRIBUTION WIDTH 16.1 % (11.5-14.5)
[2017-09-11 19:11] LABS: PROTHROMBIN TIME 10.9 SEC (9.4-11.6)
[2017-09-11 19:44] VITALS: BP 110/57
[2017-09-11] MEDS ORDERED: OMEPRAZOLE 20 MG CAPSULE PO SCH (21:00)
[2017-09-11] MEDS ORDERED: SODIUM CHLORIDE 0.9% 250 ML IV ONE (21:29)
[2017-09-11] MEDS: LEVOFLOXACIN 500 MG/D5% WATER 100 ML IV SCH (21:54)
[2017-09-11] MEDS: GABAPENTIN 100 MG CAPSULE GT SCH (21:55)
[2017-09-12 00:09] VITALS: BP 120/77
[2017-09-12] MEDS: BENZONATATE 100 MG CAPSULE GT SCH ×4 (00:52→23:12)
[2017-09-12 04:00] VITALS: BP 102/61
[2017-09-12] MEDS: ACETAMINOPHEN 325 MG TABLET GT PRN (04:17)
[2017-09-12 05:35] LABS: ALBUMIN 2.6 g/dL (3.4-5.0); BILIRUBIN,TOTAL 0.3 mg/dL (0.1-1.0); CALCIUM, TOTAL 9.1 mg/dL (8.8-10.5); CREATININE 0.95 mg/dL (0.60-1.30); MAGNESIUM 1.9 mg/dL (1.80-2.40); POTASSIUM 3.6 mmol/L (3.5-5.1); TOTAL PROTEIN, SERUM 7.1 g/dL (6.4-8.2)
[2017-09-12 05:58] LABS: BASOPHILS % (AUTO) 0.3 % (0.0-2.0); EOSINOPHILS % (AUTO) 4.6 % (1.0-6.0); HEMATOCRIT 34.8 % (36-46); HEMOGLOBIN 11.8 g/dL (12.0-16.0); LYMPHOCYTES # (AUTO) 1.5 K/uL (1.0-4.8); LYMPHOCYTES % (AUTO) 9.5 % (22.0-44.0); MEAN CORPUSCULAR HEMOGLOBIN 28.7 pg (26.0-34.0); MEAN CORPUSCULAR HGB CONC 33.8 G/dL (31.0-37.0); MEAN CORPUSCULAR VOLUME 85 fL (80-100); MONOCYTES # (AUTO) 0.9 K/uL (0.1-1.0); MONOCYTES % (AUTO) 5.5 % (2.0-9.0); NEUTROPHILS # (AUTO) 12.5 K/uL (1.8-7.7); NEUTROPHILS % (AUTO) 80.1 % (40.0-70.0); PLATELET COUNT (AUTO) 377 K/uL (150-450); RED CELL DISTRIBUTION WIDTH 16.3 % (11.5-14.5)
[2017-09-12] MEDS ORDERED: PANTOPRAZOLE SODIUM 40 MG DR TABLET PO SCH (06:30)
[2017-09-12] MEDS: LEVOTHYROXINE SODIUM 75 MCG TABLET GT SCH (06:34)
[2017-09-12] MEDS: INSULIN REGULAR, HUMAN 100 UNITS/ML SQ PRN ×3 (06:35→23:12)
[2017-09-12 07:38] VITALS: BP 107/50
[2017-09-12] MEDS: ALBUTEROL SULFATE 2.5 MG/0.5 ML NEB SOLUTION NEB SCH ×5 (08:08→23:21)
[2017-09-12] MEDS: IPRATROPIUM BROMIDE 0.5 MG/2.5 ML NEB SOLUTION NEB SCH ×5 (08:08→23:21)
[2017-09-12] MEDS ORDERED: APIXABAN 5 MG TABLET PO SCH ×2 (09:00→12:21)
[2017-09-12] MEDS: METOPROLOL TARTRATE 25 MG TABLET GT SCH ×2 (09:04→22:10)
[2017-09-12] MEDS: MetFORMIN HCL 500 MG TABLET PO SCH ×2 (09:04→18:00)
[2017-09-12] MEDS: ASPIRIN 81 MG CHEWABLE TABLET GT SCH (09:05)
[2017-09-12] MEDS: ATORVASTATIN CALCIUM 10 MG TABLET GT SCH (09:05)
[2017-09-12] MEDS: DOCUSATE SODIUM 250 MG CAPSULE GT SCH ×3 (09:05→21:00)
[2017-09-12] MEDS: FUROSEMIDE 40 MG/4 ML VIAL IVP SCH (09:09)
[2017-09-12] MEDS: OMEPRAZOLE 20 MG CAPSULE PO SCH (09:09)
[2017-09-12] MEDS: AmLODIPine BESYLATE 5 MG TABLET GT SCH (09:10)
[2017-09-12] MEDS: FLUTICASONE PROPIONATE 50 MCG/SPRAY 16 GM NASAL SPRAY NASAL SCH (09:10)
[2017-09-12 10:36] LABS: BASOPHILS % (AUTO) 0.3 % (0.0-2.0); EOSINOPHILS % (AUTO) 5.7 % (1.0-6.0); HEMATOCRIT 35.4 % (36-46); HEMOGLOBIN 11.9 g/dL (12.0-16.0); LYMPHOCYTES # (AUTO) 1.7 K/uL (1.0-4.8); LYMPHOCYTES % (AUTO) 11.6 % (22.0-44.0); MEAN CORPUSCULAR HEMOGLOBIN 28.5 pg (26.0-34.0); MEAN CORPUSCULAR HGB CONC 33.5 G/dL (31.0-37.0); MEAN CORPUSCULAR VOLUME 85 fL (80-100); MONOCYTES # (AUTO) 0.9 K/uL (0.1-1.0); MONOCYTES % (AUTO) 6.2 % (2.0-9.0); NEUTROPHILS # (AUTO) 11.5 K/uL (1.8-7.7); NEUTROPHILS % (AUTO) 76.2 % (40.0-70.0); PLATELET COUNT (AUTO) 381 K/uL (150-450); RED BLOOD CELL COUNT(AUTO) 4.17 MIL/uL (4.00-5.20); RED CELL DISTRIBUTION WIDTH 15.9 % (11.5-14.5)
[2017-09-12 10:50] LABS: CALCIUM, TOTAL 8.9 mg/dL (8.8-10.5); CREATININE 0.95 mg/dL (0.60-1.30); POTASSIUM 3.4 mmol/L (3.5-5.1)
[2017-09-12 11:34] VITALS: BP 108/50
[2017-09-12] MEDS: ONDANSETRON HCL 4 MG/2 ML VIAL IVP PRN (12:20)
[2017-09-12] MEDS ORDERED: IOVERSOL 320 MG/ML 100 ML VIAL ONE (15:07)
[2017-09-12 15:34] VITALS: BP 105/65
[2017-09-12] MEDS ORDERED: POTASSIUM CHLORIDE 20 MEQ ER TABLET PO PRN ×2 (15:45→18:15)
[2017-09-12] MEDS ORDERED: POTASSIUM CHL 10 MEQ/WATER 50 ML IV PRN (15:45)
[2017-09-12] MEDS ORDERED: POTASSIUM CHLORIDE 20 MEQ ER TABLET GT PRN (18:30)
[2017-09-12 18:45] LABS: APPEARANCE,URINE CLOUDY (CLEAR); BILIRUBIN,URINE NEGATIVE (NEGATIVE); GLUCOSE, URINE (UA) NEGATIVE (NEGATIVE); KETONES,URINE NEGATIVE (NEGATIVE); LEUKOCYTE ESTERASE ,URINE LARGE (NEGATIVE); OCCULT BLOOD,URINE SMALL (NEGATIVE); PH,URINE 5.5 (5.0-8.0); PROTEIN,URINE NEGATIVE (NEGATIVE); UROBILINOGEN,URINE 0.2 mg/dL (<=1.0)
[2017-09-12] MEDS ORDERED: POTASSIUM CHLORIDE 10% 40 MEQ/30 ML LIQUID UDCUP GT PRN (18:45)
[2017-09-12 18:58] LABS: BACTERIA,URINE Many /HPF (None Seen); NITRATE,URINE POSITIVE (NEGATIVE); SQUAMOUS EPITHELIAL CELL,UR Few /LPF (None Seen); WBC,URINE 26-50 /HPF (0-5)
[2017-09-12 19:18] VITALS: BP 104/54
[2017-09-12] MEDS: LEVOFLOXACIN 500 MG/D5% WATER 100 ML IV SCH (20:20)
[2017-09-12] MEDS ORDERED: HEPARIN SODIUM,PORCINE 5,000 UNITS/ML VIAL IVP ONE (21:30)
[2017-09-12] MEDS ORDERED: HEPARIN SODIUM,PORCINE 5,000 UNITS/ML VIAL IVP PRN (21:45)
[2017-09-12] MEDS ORDERED: HEPARIN SODIUM 25000 UNITS/D5W 250 ML IV PRN (22:00)
[2017-09-12] MEDS: GABAPENTIN 100 MG CAPSULE GT SCH (22:08)
[2017-09-12] MEDS: HEPARIN SODIUM 25000 UNITS/D5W 250 ML IV PRN (23:00)
[2017-09-13 00:06] VITALS: BP 103/65
[2017-09-13 04:56] VITALS: BP 109/62
[2017-09-13] MEDS: INSULIN REGULAR, HUMAN 100 UNITS/ML SQ PRN ×2 (06:14→18:52)
[2017-09-13] MEDS: LEVOTHYROXINE SODIUM 75 MCG TABLET GT SCH (06:15)
[2017-09-13 06:29] LABS: BASOPHILS % (AUTO) 0.4 % (0.0-2.0); EOSINOPHILS % (AUTO) 5.5 % (1.0-6.0); HEMATOCRIT 33.5 % (36-46); HEMOGLOBIN 11.5 g/dL (12.0-16.0); LYMPHOCYTES # (AUTO) 1.7 K/uL (1.0-4.8); LYMPHOCYTES % (AUTO) 10.6 % (22.0-44.0); MEAN CORPUSCULAR HEMOGLOBIN 29.3 pg (26.0-34.0); MEAN CORPUSCULAR HGB CONC 34.4 G/dL (31.0-37.0); MEAN CORPUSCULAR VOLUME 85 fL (80-100); MONOCYTES # (AUTO) 0.9 K/uL (0.1-1.0); MONOCYTES % (AUTO) 5.3 % (2.0-9.0); NEUTROPHILS # (AUTO) 12.7 K/uL (1.8-7.7); NEUTROPHILS % (AUTO) 78.2 % (40.0-70.0); PLATELET COUNT (AUTO) 358 K/uL (150-450); RED BLOOD CELL COUNT(AUTO) 3.93 MIL/uL (4.00-5.20)
[2017-09-13 06:53] LABS: ALBUMIN 2.5 g/dL (3.4-5.0); BILIRUBIN,TOTAL 0.3 mg/dL (0.1-1.0); CALCIUM, TOTAL 9.1 mg/dL (8.8-10.5); CREATININE 0.91 mg/dL (0.60-1.30); POTASSIUM 4.1 mmol/L (3.5-5.1); TOTAL PROTEIN, SERUM 6.8 g/dL (6.4-8.2)
[2017-09-13] MEDS: ALBUTEROL SULFATE 2.5 MG/0.5 ML NEB SOLUTION NEB SCH ×5 (07:59→23:37)
[2017-09-13] MEDS: IPRATROPIUM BROMIDE 0.5 MG/2.5 ML NEB SOLUTION NEB SCH ×5 (07:59→23:37)
[2017-09-13] MEDS ORDERED: FUROSEMIDE 20 MG/2 ML VIAL IVP SCH (09:00)
[2017-09-13] MEDS: FUROSEMIDE 40 MG/4 ML VIAL IVP SCH (09:04)
[2017-09-13] MEDS: BENZONATATE 100 MG CAPSULE GT SCH ×3 (09:04→23:10)
[2017-09-13] MEDS: OMEPRAZOLE 20 MG CAPSULE PO SCH (09:04)
[2017-09-13] MEDS: CHOLECALCIFEROL (VIT D3) 5,000 UNITS CAPSULE GT SCH (09:05)
[2017-09-13] MEDS: ASPIRIN 81 MG CHEWABLE TABLET GT SCH (09:05)
[2017-09-13] MEDS: DOCUSATE SODIUM 250 MG CAPSULE GT SCH ×3 (09:05→20:27)
[2017-09-13] MEDS: FLUTICASONE PROPIONATE 50 MCG/SPRAY 16 GM NASAL SPRAY NASAL SCH (09:05)
[2017-09-13] MEDS: METOPROLOL TARTRATE 25 MG TABLET GT SCH ×2 (09:05→20:27)
[2017-09-13] MEDS: ATORVASTATIN CALCIUM 10 MG TABLET GT SCH (09:05)
[2017-09-13] MEDS: AmLODIPine BESYLATE 5 MG TABLET GT SCH (09:12)
[2017-09-13] MEDS ORDERED: *CLINICAL-WARFARIN SODIUM DOSING CLINICAL ONE (10:15)
[2017-09-13] MEDS ORDERED: TIGECYCLINE 100 MG in SODIUM CHLORIDE 0.9% 100 ML IV ONE (12:00)
[2017-09-13 12:03] VITALS: BP 107/54
[2017-09-13 16:13] VITALS: BP 102/46
[2017-09-13] MEDS ORDERED: WARFARIN SODIUM 5 MG TABLET PO ONE (17:00)
[2017-09-13] MEDS: WARFARIN SODIUM 5 MG TABLET PO SCH ×2 (17:00→18:50)
[2017-09-13 17:48] LABS: GLUCOMETER DEV NAME(LOC) 5N 1P; GLUCOSE,POINT OF CARE 132 MG/DL (70-110)
[2017-09-13 17:48] LABS: GLUCOMETER DEV NAME(LOC) 5N 1P; GLUCOSE,POINT OF CARE 226 MG/DL (70-110)
[2017-09-13 17:48] LABS: GLUCOMETER DEV NAME(LOC) 5N 1P; GLUCOSE,POINT OF CARE 129 MG/DL (70-110)
[2017-09-13 17:48] LABS: GLUCOMETER DEV NAME(LOC) 5N 1P; GLUCOSE,POINT OF CARE 159 MG/DL (70-110)
[2017-09-13 17:48] LABS: GLUCOMETER DEV NAME(LOC) 5N 1P; GLUCOSE,POINT OF CARE 151 MG/DL (70-110)
[2017-09-13 17:48] LABS: GLUCOMETER DEV NAME(LOC) 5N 1P; GLUCOSE,POINT OF CARE 109 MG/DL (70-110)
[2017-09-13 17:48] LABS: GLUCOMETER DEV NAME(LOC) 5N 1P; GLUCOSE,POINT OF CARE 164 MG/DL (70-110)
[2017-09-13 17:48] LABS: GLUCOMETER DEV NAME(LOC) 5N 1P; GLUCOSE,POINT OF CARE 139 MG/DL (70-110)
[2017-09-13 18:30] LABS: INR 1.4 (0.9-1.1)
[2017-09-13 19:51] VITALS: BP 106/60
[2017-09-13] MEDS: GABAPENTIN 100 MG CAPSULE GT SCH (20:27)
[2017-09-13] MEDS: HEPARIN SODIUM 25000 UNITS/D5W 250 ML IV PRN (20:29)
[2017-09-13] MEDS ORDERED: SODIUM CHLORIDE 0.9% 100 ML ONE (23:05)
[2017-09-13] MEDS: TIGECYCLINE 50 MG in SODIUM CHLORIDE 0.9% 50 ML IV SCH (23:11)
[2017-09-14] MEDS: INSULIN REGULAR, HUMAN 100 UNITS/ML SQ PRN ×3 (00:27→11:39)
[2017-09-14 00:28] LABS: GLUCOMETER DEV NAME(LOC) 5N 1P; GLUCOSE,POINT OF CARE 162 MG/DL (70-110)
[2017-09-14 00:29] VITALS: BP 107/63
[2017-09-14 06:03] LABS: BASOPHILS % (AUTO) 0.6 % (0.0-2.0); EOSINOPHILS % (AUTO) 5.3 % (1.0-6.0); HEMATOCRIT 34.3 % (36-46); HEMOGLOBIN 11.6 g/dL (12.0-16.0); LYMPHOCYTES % (AUTO) 11.7 % (22.0-44.0); MEAN CORPUSCULAR HEMOGLOBIN 28.9 pg (26.0-34.0); MEAN CORPUSCULAR VOLUME 85 fL (80-100); NEUTROPHILS % (AUTO) 76.4 % (40.0-70.0); PLATELET COUNT (AUTO) 403 K/uL (150-450); RED BLOOD CELL COUNT(AUTO) 4.03 MIL/uL (4.00-5.20); RED CELL DISTRIBUTION WIDTH 16.4 % (11.5-14.5)
[2017-09-14 06:09] LABS: INR 1.1 (0.9-1.1); PROTHROMBIN TIME 11.8 SEC (9.4-11.6)
[2017-09-14 06:31] LABS: ALANINE AMINOTRANSFERASE 47 U/L (12-78); ALBUMIN 2.6 g/dL (3.4-5.0); ALKALINE PHOSPHATASE 177 U/L (46-116); ANION GAP 8 mmol/L (8-16); ASPARTATE AMINOTRANSFERASE 25 U/L (15-37); BILIRUBIN,TOTAL 0.3 mg/dL (0.1-1.0); CARBON DIOXIDE 30 mmol/L (22-29); CHLORIDE 95 mmol/L (98-107); CREATININE 0.86 mg/dL (0.60-1.30); GLOMERULAR FILTR. RATE CALC > 60 mL/min (>60); GLUCOSE,RANDOM 139 mg/dL (70-110); POTASSIUM 3.7 mmol/L (3.5-5.1); SODIUM SERUM 133 mmol/L (136-145); UREA NITROGEN, BLOOD 29 mg/dL (7-18)
[2017-09-14] MEDS: LEVOTHYROXINE SODIUM 75 MCG TABLET GT SCH (06:31)
[2017-09-14 07:25] VITALS: BP 126/55
[2017-09-14 07:49] LABS: GLUCOMETER DEV NAME(LOC) 5S 1M; GLUCOSE,POINT OF CARE 138 MG/DL (70-110)
[2017-09-14] MEDS: ALBUTEROL SULFATE 2.5 MG/0.5 ML NEB SOLUTION NEB SCH ×5 (08:22→23:00)
[2017-09-14] MEDS: IPRATROPIUM BROMIDE 0.5 MG/2.5 ML NEB SOLUTION NEB SCH ×5 (08:22→23:00)
[2017-09-14] MEDS: DOCUSATE SODIUM 250 MG CAPSULE GT SCH ×3 (09:00→21:00)
[2017-09-14] MEDS: ASPIRIN 81 MG CHEWABLE TABLET GT SCH (09:04)
[2017-09-14] MEDS: AmLODIPine BESYLATE 5 MG TABLET GT SCH (09:04)
[2017-09-14] MEDS: ATORVASTATIN CALCIUM 10 MG TABLET GT SCH (09:04)
[2017-09-14] MEDS: FUROSEMIDE 40 MG/4 ML VIAL IVP SCH (09:05)
[2017-09-14] MEDS: METOPROLOL TARTRATE 25 MG TABLET GT SCH ×2 (09:05→21:04)
[2017-09-14] MEDS: FLUTICASONE PROPIONATE 50 MCG/SPRAY 16 GM NASAL SPRAY NASAL SCH (09:05)
[2017-09-14] MEDS: BENZONATATE 100 MG CAPSULE GT SCH ×3 (09:05→22:25)
[2017-09-14] MEDS: CHOLECALCIFEROL (VIT D3) 5,000 UNITS CAPSULE GT SCH (09:05)
[2017-09-14] MEDS: OMEPRAZOLE 20 MG CAPSULE PO SCH (09:05)
[2017-09-14] MEDS: ONDANSETRON HCL 4 MG/2 ML VIAL IVP PRN (09:49)
[2017-09-14 11:24] VITALS: BP 100/62
[2017-09-14] MEDS: TIGECYCLINE 50 MG in SODIUM CHLORIDE 0.9% 50 ML IV SCH (12:48)
[2017-09-14 14:58] LABS: GLUCOMETER DEV NAME(LOC) 5S 1M; GLUCOSE,POINT OF CARE 147 MG/DL (70-110)
[2017-09-14] MEDS: LACTOBACILLUS ACIDOPHILUS/BULGARICUS GRANULES PACKET PO SCH ×2 (15:29→21:04)
[2017-09-14 15:40] VITALS: BP 106/64
[2017-09-14] MEDS: MetFORMIN HCL 500 MG TABLET PO SCH (17:53)
[2017-09-14] MEDS: HEPARIN SODIUM 25000 UNITS/D5W 250 ML IV PRN (18:28)
[2017-09-14 19:30] VITALS: BP 112/61
[2017-09-14 19:44] LABS: GLUCOMETER DEV NAME(LOC) 5S 1M; GLUCOSE,POINT OF CARE 119 MG/DL (70-110)
[2017-09-14] MEDS: GABAPENTIN 100 MG CAPSULE GT SCH (21:04)
[2017-09-14] MEDS: CefTRIAXone SODIUM 1 GM in DEXTROSE 5%-WATER 10 ML IV SCH (21:04)
[2017-09-14] MEDS ORDERED: DOXYCYCLINE HYCLATE 100 MG CAPSULE GT SCH (22:45)
[2017-09-15] VITALS (7 sets, daily range): BP systolic 94–118; BP diastolic 51–63
[2017-09-15 00:42] LABS: GLUCOMETER DEV NAME(LOC) 5S 2Q; GLUCOSE,POINT OF CARE 134 MG/DL (70-110)
[2017-09-15] MEDS: INSULIN REGULAR, HUMAN 100 UNITS/ML SQ PRN ×5 (00:46→23:59)
[2017-09-15 06:21] LABS: BASOPHILS % (AUTO) 0.7 % (0.0-2.0); EOSINOPHILS % (AUTO) 4.8 % (1.0-6.0); HEMATOCRIT 33.5 % (36-46); HEMOGLOBIN 11.5 g/dL (12.0-16.0); LYMPHOCYTES # (AUTO) 2.2 K/uL (1.0-4.8); LYMPHOCYTES % (AUTO) 11.2 % (22.0-44.0); MEAN CORPUSCULAR HEMOGLOBIN 28.9 pg (26.0-34.0); MEAN CORPUSCULAR HGB CONC 34.2 G/dL (31.0-37.0); MEAN CORPUSCULAR VOLUME 85 fL (80-100); MONOCYTES # (AUTO) 0.7 K/uL (0.1-1.0); MONOCYTES % (AUTO) 3.8 % (2.0-9.0); NEUTROPHILS # (AUTO) 15.5 K/uL (1.8-7.7); NEUTROPHILS % (AUTO) 79.5 % (40.0-70.0); PLATELET COUNT (AUTO) 411 K/uL (150-450); RED BLOOD CELL COUNT(AUTO) 3.97 MIL/uL (4.00-5.20); RED CELL DISTRIBUTION WIDTH 16.2 % (11.5-14.5)
[2017-09-15] MEDS: BENZONATATE 100 MG CAPSULE GT SCH ×3 (06:21→22:02)
[2017-09-15] MEDS: LEVOTHYROXINE SODIUM 75 MCG TABLET GT SCH (06:21)
[2017-09-15 06:35] LABS: INR 1.1 (0.9-1.1); PROTHROMBIN TIME 11.3 SEC (9.4-11.6)
[2017-09-15 06:44] LABS: ALANINE AMINOTRANSFERASE 35 U/L (12-78); ALBUMIN 2.4 g/dL (3.4-5.0); ALKALINE PHOSPHATASE 149 U/L (46-116); ANION GAP 5 mmol/L (8-16); ASPARTATE AMINOTRANSFERASE 19 U/L (15-37); BILIRUBIN,TOTAL 0.3 mg/dL (0.1-1.0); CALCIUM, TOTAL 8.7 mg/dL (8.8-10.5); CARBON DIOXIDE 32 mmol/L (22-29); CHLORIDE 96 mmol/L (98-107); CHOL/HDL RATIO 3.8 (3.9-5.7); CHOLESTEROL 111 mg/dL (131-200); FREE T4 (FREE THYROXINE) 1.29 ng/dL (0.76-1.46); GLOMERULAR FILTR. RATE CALC > 60 mL/min (>60); GLUCOSE,RANDOM 127 mg/dL (70-110); HDL CHOLESTEROL 29 mg/dL (40-60); LDL CHOL (CALC.) 50 mg/dL (0-130); POTASSIUM 3.7 mmol/L (3.5-5.1); SODIUM SERUM 133 mmol/L (136-145); TOTAL PROTEIN, SERUM 6.7 g/dL (6.4-8.2); TRIGLYCERIDES 162 mg/dL (15-150); UREA NITROGEN, BLOOD 30 mg/dL (7-18)
[2017-09-15] MEDS: CHOLECALCIFEROL (VIT D3) 5,000 UNITS CAPSULE GT SCH (08:01)
[2017-09-15] MEDS: FLUTICASONE PROPIONATE 50 MCG/SPRAY 16 GM NASAL SPRAY NASAL SCH (08:01)
[2017-09-15] MEDS: MetFORMIN HCL 500 MG TABLET PO SCH ×2 (08:01→16:50)
[2017-09-15] MEDS: IPRATROPIUM BROMIDE 0.5 MG/2.5 ML NEB SOLUTION NEB SCH ×5 (08:01→23:00)
[2017-09-15] MEDS: ASPIRIN 81 MG CHEWABLE TABLET GT SCH (08:01)
[2017-09-15] MEDS: ALBUTEROL SULFATE 2.5 MG/0.5 ML NEB SOLUTION NEB SCH ×5 (08:01→23:00)
[2017-09-15] MEDS: LACTOBACILLUS ACIDOPHILUS/BULGARICUS GRANULES PACKET PO SCH ×3 (08:01→22:07)
[2017-09-15] MEDS: OMEPRAZOLE 20 MG CAPSULE PO SCH (08:01)
[2017-09-15] MEDS: FUROSEMIDE 40 MG/4 ML VIAL IVP SCH (08:02)
[2017-09-15] MEDS: ATORVASTATIN CALCIUM 10 MG TABLET GT SCH (08:04)
[2017-09-15] MEDS: METOPROLOL TARTRATE 25 MG TABLET GT SCH ×2 (08:06→21:00)
[2017-09-15] MEDS: AmLODIPine BESYLATE 5 MG TABLET GT SCH (08:06)
[2017-09-15] MEDS: DOCUSATE SODIUM 250 MG CAPSULE GT SCH ×3 (08:23→21:00)
[2017-09-15 09:56] LABS: FOLATE SERUM 16.9 ng/mL (5.4-)
[2017-09-15] MEDS: HEPARIN SODIUM,PORCINE 5,000 UNITS/ML VIAL IVP PRN (10:10)
[2017-09-15] MEDS: HEPARIN SODIUM 25000 UNITS/D5W 250 ML IV PRN ×3 (10:20→18:47)
[2017-09-15] MEDS: ONDANSETRON HCL 4 MG/2 ML VIAL IVP PRN ×2 (12:22→22:27)
[2017-09-15] MEDS: DOXYCYCLINE 100 MG GT SCH ×2 (13:54→22:02)
[2017-09-15 14:19] LABS: GLUCOMETER DEV NAME(LOC) 5S 2Q; GLUCOSE,POINT OF CARE 122 MG/DL (70-110)
[2017-09-15] MEDS: WARFARIN SODIUM 5 MG TABLET PO SCH (16:50)
[2017-09-15] MEDS: CefTRIAXone SODIUM 1 GM in DEXTROSE 5%-WATER 10 ML IV SCH (22:01)
[2017-09-15] MEDS: GABAPENTIN 100 MG CAPSULE GT SCH (22:02)
[2017-09-16] MEDS: HEPARIN SODIUM,PORCINE 5,000 UNITS/ML VIAL IVP PRN (01:20)
[2017-09-16 04:07] VITALS: BP 127/44
[2017-09-16] MEDS: BENZONATATE 100 MG CAPSULE GT SCH ×3 (06:02→20:57)
[2017-09-16] MEDS: INSULIN REGULAR, HUMAN 100 UNITS/ML SQ PRN (06:02)
[2017-09-16] MEDS: LEVOTHYROXINE SODIUM 75 MCG TABLET GT SCH (06:02)
[2017-09-16 06:58] LABS: GLUCOMETER DEV NAME(LOC) 5S 1M; GLUCOSE,POINT OF CARE 123 MG/DL (70-110)
[2017-09-16 06:58] LABS: GLUCOMETER DEV NAME(LOC) 5S 1M; GLUCOSE,POINT OF CARE 98 MG/DL (70-110)
[2017-09-16 06:58] LABS: GLUCOMETER DEV NAME(LOC) 5S 1M; GLUCOSE,POINT OF CARE 140 MG/DL (70-110)
[2017-09-16 06:58] LABS: GLUCOMETER DEV NAME(LOC) 5S 1M; GLUCOSE,POINT OF CARE 134 MG/DL (70-110)
[2017-09-16 06:58] LABS: GLUCOMETER DEV NAME(LOC) 5S 1M; GLUCOSE,POINT OF CARE 124 MG/DL (70-110)
[2017-09-16] MEDS: ALBUTEROL SULFATE 2.5 MG/0.5 ML NEB SOLUTION NEB SCH ×5 (07:01→22:49)
[2017-09-16] MEDS: IPRATROPIUM BROMIDE 0.5 MG/2.5 ML NEB SOLUTION NEB SCH ×5 (07:01→22:49)
[2017-09-16 07:30] VITALS: BP 108/48
[2017-09-16 07:46] LABS: BASOPHILS % (AUTO) 0.5 % (0.0-2.0); EOSINOPHILS % (AUTO) 5.5 % (1.0-6.0); HEMATOCRIT 34.2 % (36-46); HEMOGLOBIN 11.5 g/dL (12.0-16.0); LYMPHOCYTES % (AUTO) 10.9 % (22.0-44.0); MEAN CORPUSCULAR HEMOGLOBIN 28.4 pg (26.0-34.0); MEAN CORPUSCULAR HGB CONC 33.5 G/dL (31.0-37.0); MEAN CORPUSCULAR VOLUME 85 fL (80-100); MONOCYTES # (AUTO) 0.7 K/uL (0.1-1.0); MONOCYTES % (AUTO) 3.8 % (2.0-9.0); NEUTROPHILS # (AUTO) 14.3 K/uL (1.8-7.7); NEUTROPHILS % (AUTO) 79.3 % (40.0-70.0); PLATELET COUNT (AUTO) 377 K/uL (150-450); RED BLOOD CELL COUNT(AUTO) 4.03 MIL/uL (4.00-5.20); RED CELL DISTRIBUTION WIDTH 16.6 % (11.5-14.5)
[2017-09-16 07:54] LABS: ALANINE AMINOTRANSFERASE 34 U/L (12-78); ALBUMIN 2.4 g/dL (3.4-5.0); ALKALINE PHOSPHATASE 160 U/L (46-116); ANION GAP 3 mmol/L (8-16); ASPARTATE AMINOTRANSFERASE 19 U/L (15-37); BILIRUBIN,TOTAL 0.3 mg/dL (0.1-1.0); CALCIUM, TOTAL 8.7 mg/dL (8.8-10.5); CARBON DIOXIDE 32 mmol/L (22-29); CHLORIDE 97 mmol/L (98-107); CREATININE 0.81 mg/dL (0.60-1.30); GLOMERULAR FILTR. RATE CALC > 60 mL/min (>60); GLUCOSE,RANDOM 131 mg/dL (70-110); INR 1.1 (0.9-1.1); PROTHROMBIN TIME 11.7 SEC (9.4-11.6); SODIUM SERUM 132 mmol/L (136-145); TOTAL PROTEIN, SERUM 6.8 g/dL (6.4-8.2); UREA NITROGEN, BLOOD 25 mg/dL (7-18)
[2017-09-16] MEDS: LACTOBACILLUS ACIDOPHILUS/BULGARICUS GRANULES PACKET PO SCH ×3 (08:54→20:57)
[2017-09-16] MEDS: METOPROLOL TARTRATE 25 MG TABLET GT SCH ×2 (08:54→20:57)
[2017-09-16] MEDS: CHOLECALCIFEROL (VIT D3) 5,000 UNITS CAPSULE GT SCH (08:55)
[2017-09-16] MEDS: OMEPRAZOLE 20 MG CAPSULE PO SCH (08:55)
[2017-09-16] MEDS: MetFORMIN HCL 500 MG TABLET PO SCH ×2 (08:56→17:35)
[2017-09-16] MEDS: ATORVASTATIN CALCIUM 10 MG TABLET GT SCH (08:56)
[2017-09-16] MEDS: ASPIRIN 81 MG CHEWABLE TABLET GT SCH (08:56)
[2017-09-16] MEDS: DOCUSATE SODIUM 250 MG CAPSULE GT SCH ×4 (08:56→20:56)
[2017-09-16] MEDS: FUROSEMIDE 40 MG/4 ML VIAL IVP SCH (08:56)
[2017-09-16] MEDS: FLUTICASONE PROPIONATE 50 MCG/SPRAY 16 GM NASAL SPRAY NASAL SCH (08:56)
[2017-09-16] MEDS ORDERED: DOXYCYCLINE HYCLATE 100 MG CAPSULE GT SCH (09:00)
[2017-09-16] MEDS: DOXYCYCLINE 100 MG GT SCH ×3 (09:00→20:57)
[2017-09-16] MEDS ORDERED: IPRATROPIUM BROMIDE 0.5 MG/2.5 ML NEB SOLUTION NEB PRN (10:30)
[2017-09-16] MEDS ORDERED: ALBUTEROL SULFATE 2.5 MG/0.5 ML NEB SOLUTION NEB PRN (10:30)
[2017-09-16 11:57] VITALS: BP 116/60
[2017-09-16] MEDS: WARFARIN SODIUM 5 MG TABLET PO SCH (16:27)
[2017-09-16] MEDS ORDERED: WARFARIN SODIUM 7.5 MG TABLET PO ONE (17:00)
[2017-09-16 17:03] VITALS: BP 96/57
[2017-09-16 18:18] LABS: GLUCOMETER DEV NAME(LOC) 6N 1E; GLUCOSE,POINT OF CARE 125 MG/DL (70-110)
[2017-09-16 20:10] VITALS: BP 108/53
[2017-09-16] MEDS: GABAPENTIN 100 MG CAPSULE GT SCH (20:56)
[2017-09-16] MEDS: CefTRIAXone SODIUM 1 GM in DEXTROSE 5%-WATER 10 ML IV SCH (20:58)
[2017-09-16] MEDS: HEPARIN SODIUM 25000 UNITS/D5W 250 ML IV PRN (21:59)
[2017-09-16 23:42] LABS: GLUCOMETER DEV NAME(LOC) 6N 1E; GLUCOSE,POINT OF CARE 116 MG/DL (70-110)
[2017-09-17 00:08] VITALS: BP 101/51
[2017-09-17 01:53] LABS: GLUCOMETER DEV NAME(LOC) 6N 2D; GLUCOSE,POINT OF CARE 119 MG/DL (70-110)
[2017-09-17] MEDS: ONDANSETRON HCL 4 MG/2 ML VIAL IVP PRN ×2 (03:02→08:56)
[2017-09-17 03:22] LABS: GLUCOMETER DEV NAME(LOC) 5S 1M; GLUCOSE,POINT OF CARE 120 MG/DL (70-110)
[2017-09-17] MEDS: ALBUTEROL SULFATE 2.5 MG/0.5 ML NEB SOLUTION NEB SCH ×6 (03:26→22:57)
[2017-09-17] MEDS: IPRATROPIUM BROMIDE 0.5 MG/2.5 ML NEB SOLUTION NEB SCH ×6 (03:26→22:57)
[2017-09-17 05:27] VITALS: BP 101/57
[2017-09-17] MEDS: BENZONATATE 100 MG CAPSULE GT SCH ×3 (06:31→23:03)
[2017-09-17] MEDS: LEVOTHYROXINE SODIUM 75 MCG TABLET GT SCH (06:31)
[2017-09-17 06:47] LABS: BASOPHILS % (AUTO) 0.7 % (0.0-2.0); EOSINOPHILS % (AUTO) 6.4 % (1.0-6.0); HEMOGLOBIN 11.5 g/dL (12.0-16.0); LYMPHOCYTES # (AUTO) 1.7 K/uL (1.0-4.8); LYMPHOCYTES % (AUTO) 10.1 % (22.0-44.0); MEAN CORPUSCULAR HEMOGLOBIN 28.7 pg (26.0-34.0); MEAN CORPUSCULAR VOLUME 85 fL (80-100); MONOCYTES # (AUTO) 0.8 K/uL (0.1-1.0); MONOCYTES % (AUTO) 4.6 % (2.0-9.0); NEUTROPHILS # (AUTO) 13.3 K/uL (1.8-7.7); NEUTROPHILS % (AUTO) 78.2 % (40.0-70.0); PLATELET COUNT (AUTO) 388 K/uL (150-450); RED BLOOD CELL COUNT(AUTO) 4.02 MIL/uL (4.00-5.20); RED CELL DISTRIBUTION WIDTH 16.2 % (11.5-14.5)
[2017-09-17] MEDS: INSULIN REGULAR, HUMAN 100 UNITS/ML SQ PRN (06:48)
[2017-09-17 07:27] LABS: GLUCOMETER DEV NAME(LOC) 6N 2D; GLUCOSE,POINT OF CARE 162 MG/DL (70-110)
[2017-09-17 07:30] LABS: ALANINE AMINOTRANSFERASE 30 U/L (12-78); ALBUMIN 2.5 g/dL (3.4-5.0); ALKALINE PHOSPHATASE 145 U/L (46-116); ANION GAP 6 mmol/L (8-16); ASPARTATE AMINOTRANSFERASE 18 U/L (15-37); BILIRUBIN,TOTAL 0.3 mg/dL (0.1-1.0); CALCIUM, TOTAL 9.5 mg/dL (8.8-10.5); CARBON DIOXIDE 31 mmol/L (22-29); CHLORIDE 95 mmol/L (98-107); GLOMERULAR FILTR. RATE CALC > 60 mL/min (>60); GLUCOSE,RANDOM 138 mg/dL (70-110); POTASSIUM 3.8 mmol/L (3.5-5.1); SODIUM SERUM 132 mmol/L (136-145); TOTAL PROTEIN, SERUM 6.9 g/dL (6.4-8.2); UREA NITROGEN, BLOOD 21 mg/dL (7-18)
[2017-09-17 08:04] VITALS: BP 119/73
[2017-09-17] MEDS: DOCUSATE SODIUM 250 MG CAPSULE GT SCH ×3 (08:55→20:51)
[2017-09-17] MEDS: METOPROLOL TARTRATE 25 MG TABLET GT SCH ×2 (08:55→20:53)
[2017-09-17] MEDS: OMEPRAZOLE 20 MG CAPSULE PO SCH (08:55)
[2017-09-17] MEDS: ATORVASTATIN CALCIUM 10 MG TABLET GT SCH (08:55)
[2017-09-17] MEDS: MetFORMIN HCL 500 MG TABLET PO SCH ×2 (08:55→17:41)
[2017-09-17] MEDS: ASPIRIN 81 MG CHEWABLE TABLET GT SCH (08:55)
[2017-09-17] MEDS: CHOLECALCIFEROL (VIT D3) 5,000 UNITS CAPSULE GT SCH (08:56)
[2017-09-17] MEDS: LACTOBACILLUS ACIDOPHILUS/BULGARICUS GRANULES PACKET PO SCH ×3 (08:56→20:54)
[2017-09-17] MEDS: FUROSEMIDE 40 MG/4 ML VIAL IVP SCH (08:56)
[2017-09-17] MEDS: FLUTICASONE PROPIONATE 50 MCG/SPRAY 16 GM NASAL SPRAY NASAL SCH (08:56)
[2017-09-17] MEDS: DOXYCYCLINE 100 MG GT SCH ×2 (08:56→23:03)
[2017-09-17 09:12] LABS: INR 1.7 (0.9-1.1); PROTHROMBIN TIME 17.9 SEC (9.4-11.6)
[2017-09-17 11:31] VITALS: BP 114/63
[2017-09-17 11:38] LABS: GLUCOMETER DEV NAME(LOC) 6N 1E; GLUCOSE,POINT OF CARE 112 MG/DL (70-110)
[2017-09-17 15:36] VITALS: BP 118/73
[2017-09-17] MEDS ORDERED: WARFARIN SODIUM 5 MG TABLET PO SCH (17:00)
[2017-09-17 18:17] LABS: GLUCOMETER DEV NAME(LOC) 6N 2D; GLUCOSE,POINT OF CARE 122 MG/DL (70-110)
[2017-09-17 20:18] VITALS: BP 119/52
[2017-09-17] MEDS: GABAPENTIN 100 MG CAPSULE GT SCH (20:51)
[2017-09-17] MEDS: CefTRIAXone SODIUM 1 GM in DEXTROSE 5%-WATER 10 ML IV SCH (20:51)
[2017-09-17] MEDS: ACETAMINOPHEN 325 MG TABLET GT PRN (20:54)
[2017-09-17] MEDS: HEPARIN SODIUM 25000 UNITS/D5W 250 ML IV PRN (23:17)
[2017-09-18 00:11] VITALS: BP 111/53
[2017-09-18 02:28] LABS: GLUCOMETER DEV NAME(LOC) 6N 2D; GLUCOSE,POINT OF CARE 106 MG/DL (70-110)
[2017-09-18] MEDS: BENZONATATE 100 MG CAPSULE GT SCH (05:03)
[2017-09-18] MEDS: LEVOTHYROXINE SODIUM 75 MCG TABLET GT SCH (05:11)
[2017-09-18] MEDS: ACETAMINOPHEN 325 MG TABLET GT PRN ×2 (05:21→18:55)
[2017-09-18 05:33] VITALS: BP 115/53
[2017-09-18 05:58] LABS: GLUCOMETER DEV NAME(LOC) 6N 1E; GLUCOSE,POINT OF CARE 114 MG/DL (70-110)
[2017-09-18 06:20] LABS: BASOPHILS % (AUTO) 0.8 % (0.0-2.0); HEMATOCRIT 32.6 % (36-46); HEMOGLOBIN 11.3 g/dL (12.0-16.0); MEAN CORPUSCULAR HGB CONC 34.6 G/dL (31.0-37.0); MEAN CORPUSCULAR VOLUME 84 fL (80-100); MONOCYTES # (AUTO) 0.7 K/uL (0.1-1.0); MONOCYTES % (AUTO) 4.5 % (2.0-9.0); NEUTROPHILS # (AUTO) 12.2 K/uL (1.8-7.7); NEUTROPHILS % (AUTO) 74.7 % (40.0-70.0); PLATELET COUNT (AUTO) 383 K/uL (150-450); RED BLOOD CELL COUNT(AUTO) 3.88 MIL/uL (4.00-5.20); RED CELL DISTRIBUTION WIDTH 16.7 % (11.5-14.5)
[2017-09-18 06:36] LABS: INR 3.8 (0.9-1.1); PROTHROMBIN TIME 38.1 SEC (9.4-11.6)
[2017-09-18 06:48] LABS: ALANINE AMINOTRANSFERASE 28 U/L (12-78); ALBUMIN 2.3 g/dL (3.4-5.0); ALKALINE PHOSPHATASE 126 U/L (46-116); ANION GAP 3 mmol/L (8-16); ASPARTATE AMINOTRANSFERASE 20 U/L (15-37); BILIRUBIN,TOTAL 0.2 mg/dL (0.1-1.0); CALCIUM, TOTAL 9.3 mg/dL (8.8-10.5); CARBON DIOXIDE 33 mmol/L (22-29); CHLORIDE 94 mmol/L (98-107); CREATININE 0.79 mg/dL (0.60-1.30); GLOMERULAR FILTR. RATE CALC > 60 mL/min (>60); GLUCOSE,RANDOM 118 mg/dL (70-110); POTASSIUM 4.2 mmol/L (3.5-5.1); SODIUM SERUM 130 mmol/L (136-145); TOTAL PROTEIN, SERUM 6.5 g/dL (6.4-8.2); UREA NITROGEN, BLOOD 19 mg/dL (7-18)
[2017-09-18] MEDS: ALBUTEROL SULFATE 2.5 MG/0.5 ML NEB SOLUTION NEB SCH ×5 (07:36→23:45)
[2017-09-18] MEDS: IPRATROPIUM BROMIDE 0.5 MG/2.5 ML NEB SOLUTION NEB SCH ×5 (07:36→23:45)
[2017-09-18 07:48] VITALS: BP 111/50
[2017-09-18] MEDS: DOCUSATE SODIUM 250 MG CAPSULE GT SCH ×3 (08:29→19:40)
[2017-09-18] MEDS: ATORVASTATIN CALCIUM 10 MG TABLET GT SCH (08:29)
[2017-09-18] MEDS: FUROSEMIDE 40 MG/4 ML VIAL IVP SCH (08:29)
[2017-09-18] MEDS: FLUTICASONE PROPIONATE 50 MCG/SPRAY 16 GM NASAL SPRAY NASAL SCH (08:29)
[2017-09-18] MEDS: CHOLECALCIFEROL (VIT D3) 5,000 UNITS CAPSULE GT SCH (08:29)
[2017-09-18] MEDS: ASPIRIN 81 MG CHEWABLE TABLET GT SCH (08:29)
[2017-09-18] MEDS: LACTOBACILLUS ACIDOPHILUS/BULGARICUS GRANULES PACKET PO SCH ×3 (08:30→19:41)
[2017-09-18] MEDS: METOPROLOL TARTRATE 25 MG TABLET GT SCH ×2 (08:34→19:40)
[2017-09-18] MEDS: MetFORMIN HCL 500 MG TABLET PO SCH ×2 (08:34→18:04)
[2017-09-18] MEDS: OMEPRAZOLE 20 MG CAPSULE PO SCH (08:34)
[2017-09-18] MEDS ORDERED: CETIRIZINE HCL 10 MG TABLET PO SCH (09:00)
[2017-09-18 10:11] LABS: LEGIONELLA PNEUMO AG URINE Negative (Negative); ORGANISM ID Not indicated.; S PNEUMO SOURCE Urine; STREP PNEUMONIAE AG URINE Negative (Negative); STREP.PNEUMO BODY FLUID CULT. Not Indicated
[2017-09-18] MEDS ORDERED: CETIRIZINE HCL 10 MG TABLET GT SCH (10:43)
[2017-09-18] MEDS: DOXYCYCLINE HYCLATE 100 MG TABLET GT SCH ×2 (11:26→19:41)
[2017-09-18] MEDS: CETIRIZINE HCL 10 MG TABLET GT SCH (11:26)
[2017-09-18 12:27] VITALS: BP 110/58
[2017-09-18 12:28] LABS: GLUCOMETER DEV NAME(LOC) 6N 2D; GLUCOSE,POINT OF CARE 105 MG/DL (70-110)
[2017-09-18] MEDS: BENZONATATE 100 MG CAPSULE GT PRN ×2 (13:43→23:42)
[2017-09-18 19:00] VITALS: BP 113/58
[2017-09-18] MEDS: CefTRIAXone SODIUM 1 GM in DEXTROSE 5%-WATER 10 ML IV SCH (19:40)
[2017-09-18] MEDS: GABAPENTIN 100 MG CAPSULE GT SCH (19:40)
[2017-09-18 19:48] LABS: GLUCOMETER DEV NAME(LOC) 6N 2D; GLUCOSE,POINT OF CARE 99 MG/DL (70-110)
[2017-09-18 21:12] LABS: GLUCOMETER DEV NAME(LOC) 6N 1E; GLUCOSE,POINT OF CARE 106 MG/DL (70-110)
[2017-09-19] VITALS (7 sets, daily range): BP systolic 109–127; BP diastolic 58–74
[2017-09-19] MEDS: LEVOTHYROXINE SODIUM 75 MCG TABLET GT SCH (05:58)
[2017-09-19 06:11] LABS: INR 3.7 (0.9-1.1)
[2017-09-19] MEDS: BENZONATATE 100 MG CAPSULE GT PRN ×3 (06:42→20:45)
[2017-09-19 07:38] LABS: ANION GAP 2 mmol/L (8-16); BASOPHILS % (AUTO) 0.6 % (0.0-2.0); CALCIUM, TOTAL 9.3 mg/dL (8.8-10.5); CARBON DIOXIDE 33 mmol/L (22-29); CHLORIDE 95 mmol/L (98-107); CREATININE 0.76 mg/dL (0.60-1.30); EOSINOPHILS % (AUTO) 7.6 % (1.0-6.0); GLOMERULAR FILTR. RATE CALC > 60 mL/min (>60); GLUCOSE,RANDOM 110 mg/dL (70-110); HEMOGLOBIN 12.1 g/dL (12.0-16.0); LYMPHOCYTES # (AUTO) 1.3 K/uL (1.0-4.8); LYMPHOCYTES % (AUTO) 8.9 % (22.0-44.0); MEAN CORPUSCULAR HGB CONC 33.7 G/dL (31.0-37.0); MEAN CORPUSCULAR VOLUME 86 fL (80-100); MONOCYTES # (AUTO) 0.8 K/uL (0.1-1.0); MONOCYTES % (AUTO) 5.1 % (2.0-9.0); NEUTROPHILS # (AUTO) 11.7 K/uL (1.8-7.7); NEUTROPHILS % (AUTO) 77.8 % (40.0-70.0); PLATELET COUNT (AUTO) 411 K/uL (150-450); POTASSIUM 4.4 mmol/L (3.5-5.1); RED BLOOD CELL COUNT(AUTO) 4.19 MIL/uL (4.00-5.20); RED CELL DISTRIBUTION WIDTH 16.8 % (11.5-14.5); SODIUM SERUM 130 mmol/L (136-145); UREA NITROGEN, BLOOD 20 mg/dL (7-18)
[2017-09-19] MEDS: IPRATROPIUM BROMIDE 0.5 MG/2.5 ML NEB SOLUTION NEB SCH ×5 (08:07→22:49)
[2017-09-19] MEDS: ALBUTEROL SULFATE 2.5 MG/0.5 ML NEB SOLUTION NEB SCH ×5 (08:07→22:49)
[2017-09-19] MEDS: DOCUSATE SODIUM 250 MG CAPSULE GT SCH ×3 (09:00→20:38)
[2017-09-19] MEDS: CHOLECALCIFEROL (VIT D3) 5,000 UNITS CAPSULE GT SCH (09:02)
[2017-09-19] MEDS: FUROSEMIDE 40 MG/4 ML VIAL IVP SCH (09:02)
[2017-09-19] MEDS: ATORVASTATIN CALCIUM 10 MG TABLET GT SCH (09:03)
[2017-09-19] MEDS: LACTOBACILLUS ACIDOPHILUS/BULGARICUS GRANULES PACKET PO SCH ×3 (09:03→20:39)
[2017-09-19] MEDS: CETIRIZINE HCL 10 MG TABLET GT SCH (09:03)
[2017-09-19] MEDS: ASPIRIN 81 MG CHEWABLE TABLET GT SCH (09:03)
[2017-09-19] MEDS: METOPROLOL TARTRATE 25 MG TABLET GT SCH ×2 (09:04→20:38)
[2017-09-19] MEDS: MetFORMIN HCL 500 MG TABLET PO SCH ×2 (09:04→17:11)
[2017-09-19] MEDS: DOXYCYCLINE HYCLATE 100 MG TABLET GT SCH ×2 (09:04→20:38)
[2017-09-19] MEDS: OMEPRAZOLE 20 MG CAPSULE PO SCH (09:04)
[2017-09-19] MEDS: FLUTICASONE PROPIONATE 50 MCG/SPRAY 16 GM NASAL SPRAY NASAL SCH (13:54)
[2017-09-19 14:23] LABS: GLUCOMETER DEV NAME(LOC) 6N 2D; GLUCOSE,POINT OF CARE 118 MG/DL (70-110)
[2017-09-19 14:24] LABS: GLUCOMETER DEV NAME(LOC) 6N 2D; GLUCOSE,POINT OF CARE 107 MG/DL (70-110)
[2017-09-19 19:47] LABS: GLUCOMETER DEV NAME(LOC) 6N 2D; GLUCOSE,POINT OF CARE 114 MG/DL (70-110)
[2017-09-19] MEDS: CefTRIAXone SODIUM 1 GM in DEXTROSE 5%-WATER 10 ML IV SCH (20:37)
[2017-09-19] MEDS: GABAPENTIN 100 MG CAPSULE GT SCH (20:38)
[2017-09-20] MEDS: BENZONATATE 100 MG CAPSULE GT PRN ×3 (00:17→14:43)
[2017-09-20 04:24] VITALS: BP 108/59
[2017-09-20 06:16] LABS: BASOPHILS % (AUTO) 0.5 % (0.0-2.0); EOSINOPHILS % (AUTO) 8.4 % (1.0-6.0); HEMATOCRIT 34.6 % (36-46); HEMOGLOBIN 11.8 g/dL (12.0-16.0); LYMPHOCYTES # (AUTO) 1.5 K/uL (1.0-4.8); LYMPHOCYTES % (AUTO) 10.1 % (22.0-44.0); MEAN CORPUSCULAR HEMOGLOBIN 28.7 pg (26.0-34.0); MEAN CORPUSCULAR HGB CONC 34.2 G/dL (31.0-37.0); MEAN CORPUSCULAR VOLUME 84 fL (80-100); MONOCYTES # (AUTO) 0.9 K/uL (0.1-1.0); NEUTROPHILS # (AUTO) 10.9 K/uL (1.8-7.7); PLATELET COUNT (AUTO) 385 K/uL (150-450); RED BLOOD CELL COUNT(AUTO) 4.12 MIL/uL (4.00-5.20); RED CELL DISTRIBUTION WIDTH 16.4 % (11.5-14.5)
[2017-09-20] MEDS: LEVOTHYROXINE SODIUM 75 MCG TABLET GT SCH (06:21)
[2017-09-20 06:39] LABS: INR 2.6 (0.9-1.1); PROTHROMBIN TIME 26.2 SEC (9.4-11.6)
[2017-09-20 06:55] LABS: ANION GAP 4 mmol/L (8-16); CALCIUM, TOTAL 9.3 mg/dL (8.8-10.5); CARBON DIOXIDE 32 mmol/L (22-29); CHLORIDE 94 mmol/L (98-107); CREATININE 0.79 mg/dL (0.60-1.30); GLOMERULAR FILTR. RATE CALC > 60 mL/min (>60); GLUCOSE,RANDOM 108 mg/dL (70-110); POTASSIUM 4.5 mmol/L (3.5-5.1); SODIUM SERUM 130 mmol/L (136-145); UREA NITROGEN, BLOOD 20 mg/dL (7-18)
[2017-09-20] MEDS: ALBUTEROL SULFATE 2.5 MG/0.5 ML NEB SOLUTION NEB SCH ×3 (07:15→14:44)
[2017-09-20] MEDS: IPRATROPIUM BROMIDE 0.5 MG/2.5 ML NEB SOLUTION NEB SCH ×3 (07:16→14:44)
[2017-09-20 07:45] VITALS: BP 120/76
[2017-09-20] MEDS: ASPIRIN 81 MG CHEWABLE TABLET GT SCH (08:57)
[2017-09-20] MEDS: FUROSEMIDE 40 MG/4 ML VIAL IVP SCH (08:57)
[2017-09-20] MEDS: OMEPRAZOLE 20 MG CAPSULE PO SCH (08:57)
[2017-09-20] MEDS: MetFORMIN HCL 500 MG TABLET PO SCH (08:57)
[2017-09-20] MEDS: METOPROLOL TARTRATE 25 MG TABLET GT SCH (08:58)
[2017-09-20] MEDS: DOCUSATE SODIUM 250 MG CAPSULE GT SCH (08:58)
[2017-09-20] MEDS: ATORVASTATIN CALCIUM 10 MG TABLET GT SCH (08:58)
[2017-09-20] MEDS: CHOLECALCIFEROL (VIT D3) 5,000 UNITS CAPSULE GT SCH (09:03)
[2017-09-20] MEDS: LACTOBACILLUS ACIDOPHILUS/BULGARICUS GRANULES PACKET PO SCH (09:03)
[2017-09-20] MEDS: FLUTICASONE PROPIONATE 50 MCG/SPRAY 16 GM NASAL SPRAY NASAL SCH (09:04)
[2017-09-20] MEDS: CETIRIZINE HCL 10 MG TABLET GT SCH (09:04)
[2017-09-20] MEDS: DOXYCYCLINE HYCLATE 100 MG TABLET GT SCH (09:16)
[2017-09-20 11:10] VITALS: BP 113/63
[2017-09-20] MEDS: INSULIN REGULAR, HUMAN 100 UNITS/ML SQ PRN (11:55)
[2017-09-20 15:13] LABS: GLUCOMETER DEV NAME(LOC) 6N 2D; GLUCOSE,POINT OF CARE 127 MG/DL (70-110)
[2017-09-20 15:13] LABS: GLUCOMETER DEV NAME(LOC) 6N 2D; GLUCOSE,POINT OF CARE 141 MG/DL (70-110)
[2017-09-20 15:13] LABS: GLUCOMETER DEV NAME(LOC) 6N 2D; GLUCOSE,POINT OF CARE 107 MG/DL (70-110)
[2019-09-20] MEDS ORDERED: APIXABAN 5 MG TABLET PO SCH (09:00)
== END 2017-09-20 15:15 | DRG 177 ==
LOC: EMS 12:43 → 5S 19:42 → 6N 09-16 16:00
PROVIDERS: ADMIT Internal Medicine Geriatric Medicine; ATTEND Internal Medicine Geriatric Medicine
DX: J69.0 Pneumonitis due to inhalation of food and vomit (principal); E43 Unspecified severe protein-calorie malnutrition; I50.33 Acute on chronic diastolic (congestive) heart failure; I82.412 Acute embolism and thrombosis of left femoral vein; J81.1 Chronic pulmonary edema; N39.0 Urinary tract infection, site not specified; I69.351 Hemiplegia and hemiparesis following cerebral infarction affecting right dominant side; I11.0 Hypertensive heart disease with heart failure; I48.2 Chronic atrial fibrillation; B96.20 Unspecified Escherichia coli [E. coli] as the cause of diseases classified elsewhere; E11.9 Type 2 diabetes mellitus without complications; F03.90 Unspecified dementia, unspecified severity, without behavioral disturbance, psychotic disturbance, mood disturbance, and anxiety; T46.0X5A Adverse effect of cardiac-stimulant glycosides and drugs of similar action, initial encounter; K21.9 Gastro-esophageal reflux disease without esophagitis; M81.0 Age-related osteoporosis without current pathological fracture; E78.5 Hyperlipidemia, unspecified; R13.10 Dysphagia, unspecified; J30.9 Allergic rhinitis, unspecified; I34.0 Nonrheumatic mitral (valve) insufficiency; X58.XXXA Exposure to other specified factors, initial encounter; E03.9 Hypothyroidism, unspecified; D64.9 Anemia, unspecified; Z16.23 Resistance to quinolones and fluoroquinolones; E78.00 Pure hypercholesterolemia, unspecified; J44.9 Chronic obstructive pulmonary disease, unspecified; R09.02 Hypoxemia; Z66 Do not resuscitate; Z90.710 Acquired absence of both cervix and uterus; Z93.1 Gastrostomy status; Z88.0 Allergy status to penicillin; Z91.040 Latex allergy status; Z79.01 Long term (current) use of anticoagulants; Z79.899 Other long term (current) drug therapy; Z86.14 Personal history of Methicillin resistant Staphylococcus aureus infection; Z68.32 Body mass index [BMI] 32.0-32.9, adult; Y93.89 Activity, other specified; Y92.89 Other specified places as the place of occurrence of the external cause; Y99.8 Other external cause status; Z87.01 Personal history of pneumonia (recurrent); Z79.82 Long term (current) use of aspirin
CPT/HCPCS: 70460; 71250; 82271; 82306; 82607; 82746; 83036; 83735; 84145; 84439; 84443; 87070; 87081; 87086; 87106; 87205; 87449; 87899; 93005; 93306; 93970; 94640; 96365; 96375; 97162; 97530; 99285; J0696; J1644; J1940; J1956; J2405; J3243; J7050; J7060

== ENCOUNTER → 2018-01-17 | Outpatient (CLI) | payer MEDICARE, MEDICAID ==
[~2018-01-17] MED LIST changes: +ACET1TAB12 GT; +AMLO-512 GT; +CARV3 GT; +DIGO-44 GT; +ENOX40DI9 SQ; +FE PR; +FURO40 PO; +GABA250S2 GT; +GUAIF10 GT; +IPRA3AMP24 IH; +L. A1CAP11 GT; +MOM30 PO; +POTA20LI36 PO
== END | disposition home or self-care (01) ==
LOC: RADPV 12:52
PROVIDERS: ATTEND Internal Medicine Cardiovascular Disease
DX: I51.7 Cardiomegaly (principal); J18.9 Pneumonia, unspecified organism; I11.0 Hypertensive heart disease with heart failure; I50.9 Heart failure, unspecified; E78.00 Pure hypercholesterolemia, unspecified; I25.10 Atherosclerotic heart disease of native coronary artery without angina pectoris; Z86.73 Personal history of transient ischemic attack (TIA), and cerebral infarction without residual deficits

== ENCOUNTER → 2018-04-08 | Outpatient (CLI) | payer MEDICARE, MEDICAID | END | disposition home or self-care (01) | LOC: MSR 13:24 | PROVIDERS: ATTEND Legal Medicine | DX: M19.011 Primary osteoarthritis, right shoulder (principal); M85.811 Other specified disorders of bone density and structure, right shoulder ==

== ENCOUNTER 2018-08-05 13:11 | Inpatient (IN) | payer MEDICARE, MEDICAID ==
[~2018-08-05] VITALS: Ht 160 cm; Wt 86.4 kg
[2018-08-05] VITALS (10 sets, daily range): BP systolic 102–120; BP diastolic 56–75
[2018-08-05] MEDS ORDERED: WARF2.5 GT (13:53)
[2018-08-05 14:10] LABS: GLUCOSE,POINT OF CARE 103 MG/DL (70-110)
[2018-08-05] MEDS ORDERED: 0.9% SODIUM CHLORIDE 10 ML SYRINGE IVP PRN ×3 (14:15→19:15)
[2018-08-05] MEDS: SODIUM CHLORIDE 0.9% 1,000 ML IV ONE ×2 (14:35→15:27)
[2018-08-05] MEDS: PANTOPRAZOLE SODIUM 40 MG/VIAL IVP ONE ×2 (14:35→15:26)
[2018-08-05 15:13] LABS: BASOPHILS % (AUTO) 0.2 % (0.0-2.0); EOSINOPHILS % (AUTO) 0.1 % (1.0-6.0); HEMATOCRIT 43.9 % (36-46); HEMOGLOBIN 14.2 g/dL (12.0-16.0); LYMPHOCYTES # (AUTO) 1.3 K/uL (1.0-4.8); LYMPHOCYTES % (AUTO) 12.6 % (22.0-44.0); MEAN CORPUSCULAR HEMOGLOBIN 25.1 pg (26.0-34.0); MEAN CORPUSCULAR HGB CONC 32.3 G/dL (31.0-37.0); MEAN CORPUSCULAR VOLUME 78 fL (80-100); MONOCYTES # (AUTO) 0.2 K/uL (0.1-1.0); MONOCYTES % (AUTO) 1.6 % (2.0-9.0); NEUTROPHILS # (AUTO) 8.5 K/uL (1.8-7.7); NEUTROPHILS % (AUTO) 85.5 % (40.0-70.0); PLATELET COUNT (AUTO) 389 K/uL (150-450); RED BLOOD CELL COUNT(AUTO) 5.65 MIL/uL (4.00-5.20)
[2018-08-05 15:28] LABS: ANION GAP 13 mmol/L (8-16); CALCIUM, TOTAL 10.1 mg/dL (8.8-10.5); CARBON DIOXIDE 26 mmol/L (22-29); CHLORIDE 98 mmol/L (98-107); CREATININE 0.52 mg/dL (0.60-1.30); GLUCOSE,RANDOM 98 mg/dL (70-110); SODIUM SERUM 137 mmol/L (136-145); UREA NITROGEN, BLOOD 15 mg/dL (7-18)
[2018-08-05 15:35] LABS: GLOMERULAR FILTR. RATE CALC > 60 mL/min (>60)
[2018-08-05 15:38] LABS: ALANINE AMINOTRANSFERASE 22 U/L (12-78); ALBUMIN 3.2 g/dL (3.4-5.0); ALKALINE PHOSPHATASE 171 U/L (46-116); ASPARTATE AMINOTRANSFERASE 22 U/L (15-37); BILIRUBIN,TOTAL 0.5 mg/dL (0.1-1.0); CREATINE KINASE, TOTAL ONLY 28 U/L (26-192); TOTAL PROTEIN, SERUM 7.9 g/dL (6.4-8.2)
[2018-08-05] MEDS ORDERED: OCTREOTIDE ACETATE 500 MCG in DEXTROSE 5%-WATER 97.5 ML IV SCH (16:00)
[2018-08-05] MEDS ORDERED: PANTOPRAZOLE SODIUM 80 MG in SODIUM CHLORIDE 0.9% 100 ML IV SCH (16:00)
[2018-08-05] MEDS ORDERED: OCTREOTIDE ACETATE 100 MCG/ML VIAL SQ ONE (16:00)
[2018-08-05 16:08] LABS: PROTHROMBIN TIME 197.4 SEC (9.4-11.6)
[2018-08-05 16:09] LABS: INR 21.1 (0.9-1.1)
[2018-08-05 16:28] LABS: B-TYPE NATRIURETIC PEPTIDE 334 pg/mL (0-100)
[2018-08-05] MEDS ORDERED: PHYTONADIONE 10 MG in SODIUM CHLORIDE 0.9% 50 ML IV ONE (16:30)
[2018-08-05 16:49] LABS: APPEARANCE,URINE CLOUDY (CLEAR); BILIRUBIN,URINE NEGATIVE (NEGATIVE); GLUCOSE, URINE (UA) NEGATIVE (NEGATIVE); KETONES,URINE 40 mg/dL (NEGATIVE); LEUKOCYTE ESTERASE ,URINE LARGE (NEGATIVE); NITRATE,URINE POSITIVE (NEGATIVE); OCCULT BLOOD,URINE LARGE (NEGATIVE); PH,URINE 6.5 (5.0-8.0); PROTEIN,URINE TRACE (NEGATIVE); UROBILINOGEN,URINE 0.2 mg/dL (<=1.0)
[2018-08-05 16:56] LABS: BACTERIA,URINE Many /HPF (None Seen); SQUAMOUS EPITHELIAL CELL,UR Few /LPF (None Seen)
[2018-08-05] MEDS ORDERED: ACETAMINOPHEN 325 MG TABLET PO PRN ×2 (17:00→19:15)
[2018-08-05] MEDS ORDERED: ONDANSETRON HCL 4 MG/2 ML VIAL IVP PRN ×2 (17:00→19:15)
[2018-08-05] MEDS ORDERED: OxyCODONE HCL/ACETAMINOPHEN 5-325 MG TABLET PO PRN ×2 (19:15)
[2018-08-05] MEDS: METOPROLOL TARTRATE 25 MG TABLET PO SCH (19:15)
[2018-08-05] MEDS: ATORVASTATIN CALCIUM 10 MG TABLET GT SCH (19:15)
[2018-08-05] MEDS: FUROSEMIDE 40 MG TABLET PO SCH (19:15)
[2018-08-05] MEDS ORDERED: PANTOPRAZOLE SODIUM 40 MG/VIAL IVP SCH (19:15)
[2018-08-05] MEDS ORDERED: MAGNESIUM HYDROXIDE SUSPENSION 30 ML UDCUP PO PRN (19:15)
[2018-08-05] MEDS ORDERED: FUROSEMIDE 40 MG/4 ML VIAL IVP ONE (20:30)
[2018-08-05] MEDS: DOCUSATE SODIUM 100 MG CAPSULE PO SCH (21:00)
[2018-08-06] VITALS (8 sets, daily range): BP systolic 113–140; BP diastolic 59–91
[2018-08-06 04:55] LABS: BASOPHILS % (AUTO) 1.3 % (0.0-2.0); EOSINOPHILS % (AUTO) 0.7 % (1.0-6.0); HEMATOCRIT 35.1 % (36-46); HEMOGLOBIN 11.2 g/dL (12.0-16.0); LYMPHOCYTES # (AUTO) 1.9 K/uL (1.0-4.8); LYMPHOCYTES % (AUTO) 21.1 % (22.0-44.0); MEAN CORPUSCULAR HEMOGLOBIN 24.7 pg (26.0-34.0); MEAN CORPUSCULAR HGB CONC 31.8 G/dL (31.0-37.0); MEAN CORPUSCULAR VOLUME 78 fL (80-100); MONOCYTES % (AUTO) 10.8 % (2.0-9.0); NEUTROPHILS # (AUTO) 6.1 K/uL (1.8-7.7); NEUTROPHILS % (AUTO) 66.1 % (40.0-70.0); PLATELET COUNT (AUTO) 325 K/uL (150-450); RED BLOOD CELL COUNT(AUTO) 4.52 MIL/uL (4.00-5.20); RED CELL DISTRIBUTION WIDTH 18.5 % (11.5-14.5)
[2018-08-06 05:13] LABS: ALANINE AMINOTRANSFERASE 16 U/L (12-78); ALKALINE PHOSPHATASE 127 U/L (46-116); ANION GAP 9 mmol/L (8-16); ASPARTATE AMINOTRANSFERASE 19 U/L (15-37); BILIRUBIN,TOTAL 0.7 mg/dL (0.1-1.0); CALCIUM, TOTAL 9.4 mg/dL (8.8-10.5); CARBON DIOXIDE 31 mmol/L (22-29); CHLORIDE 101 mmol/L (98-107); CREATININE 0.63 mg/dL (0.60-1.30); GLOMERULAR FILTR. RATE CALC > 60 mL/min (>60); GLUCOSE,RANDOM 100 mg/dL (70-110); POTASSIUM 3.2 mmol/L (3.5-5.1); SODIUM SERUM 141 mmol/L (136-145); TOTAL PROTEIN, SERUM 6.7 g/dL (6.4-8.2); UREA NITROGEN, BLOOD 15 mg/dL (7-18)
[2018-08-06] MEDS: LEVOTHYROXINE SODIUM 50 MCG TABLET GT SCH (06:36)
[2018-08-06 06:45] LABS: INR 1.2 (0.9-1.1); PROTHROMBIN TIME 12.2 SEC (9.4-11.6)
[2018-08-06] MEDS ORDERED: CefTRIAXone 1 GM/DEXTROSE 50 ML IV ONE (08:00)
[2018-08-06] MEDS ORDERED: POTASSIUM CHLORIDE 10% 40 MEQ/30 ML LIQUID UDCUP GT PRN ×2 (08:15)
[2018-08-06] MEDS: FUROSEMIDE 40 MG TABLET PO SCH (08:48)
[2018-08-06] MEDS: METOPROLOL TARTRATE 25 MG TABLET PO SCH (08:48)
[2018-08-06] MEDS: DOCUSATE SODIUM 100 MG CAPSULE PO SCH ×2 (09:00→21:00)
[2018-08-06] MEDS: ATORVASTATIN CALCIUM 10 MG TABLET GT SCH (09:04)
[2018-08-06] MEDS: PANTOPRAZOLE SODIUM 40 MG/VIAL IVP SCH ×2 (09:04→23:14)
[2018-08-06] MEDS: CIPROFLOXACIN 400 MG/D5% WATER 200 ML IV SCH ×2 (10:03→21:47)
[2018-08-06] MEDS ORDERED: SODIUM CHLORIDE 0.9% 250 ML IV ONE (10:05)
[2018-08-06] MEDS ORDERED: DEXTROSE 50%-WATER 25 GM/50 ML SYRINGE IVP PRN (18:45)
[2018-08-06] MEDS ORDERED: ZOLPIDEM TARTRATE 5 MG TABLET PO SCH (21:00)
[2018-08-06] MEDS ORDERED: SODIUM CHLORIDE 0.9% 500 ML IV ONE (21:45)
[2018-08-06] MEDS ORDERED: ZOLPIDEM TARTRATE 5 MG TABLET PO ONE (22:00)
[2018-08-07 04:31] VITALS: BP 115/85
[2018-08-07] MEDS: LEVOTHYROXINE SODIUM 50 MCG TABLET GT SCH (05:45)
[2018-08-07 06:10] LABS: BASOPHILS % (AUTO) 0.6 % (0.0-2.0); EOSINOPHILS % (AUTO) 1.7 % (1.0-6.0); HEMATOCRIT 35.7 % (36-46); HEMOGLOBIN 11.7 g/dL (12.0-16.0); LYMPHOCYTES % (AUTO) 26.7 % (22.0-44.0); MEAN CORPUSCULAR HEMOGLOBIN 25.2 pg (26.0-34.0); MEAN CORPUSCULAR HGB CONC 32.7 G/dL (31.0-37.0); MEAN CORPUSCULAR VOLUME 77 fL (80-100); MONOCYTES # (AUTO) 0.8 K/uL (0.1-1.0); MONOCYTES % (AUTO) 10.5 % (2.0-9.0); NEUTROPHILS # (AUTO) 4.5 K/uL (1.8-7.7); NEUTROPHILS % (AUTO) 60.5 % (40.0-70.0); PLATELET COUNT (AUTO) 309 K/uL (150-450); RED BLOOD CELL COUNT(AUTO) 4.63 MIL/uL (4.00-5.20); RED CELL DISTRIBUTION WIDTH 18.1 % (11.5-14.5)
[2018-08-07 07:10] LABS: ANION GAP 7 mmol/L (8-16); CALCIUM, TOTAL 9.2 mg/dL (8.8-10.5); CARBON DIOXIDE 32 mmol/L (22-29); CHLORIDE 99 mmol/L (98-107); CREATININE 0.65 mg/dL (0.60-1.30); GLUCOSE,RANDOM 97 mg/dL (70-110); SODIUM SERUM 138 mmol/L (136-145); UREA NITROGEN, BLOOD 18 mg/dL (7-18)
[2018-08-07 07:25] LABS: GLOMERULAR FILTR. RATE CALC > 60 mL/min (>60); POTASSIUM 2.9 mmol/L (3.5-5.1)
[2018-08-07] MEDS ORDERED: MAGNESIUM HYDROXIDE SUSPENSION 30 ML UDCUP GT PRN (07:45)
[2018-08-07] MEDS ORDERED: SODIUM CHLORIDE 0.9% 100 ML ONE ×2 (07:51→07:52)
[2018-08-07] MEDS: POTASSIUM CHL 10 MEQ/WATER 50 ML IV PRN ×4 (08:03→11:50)
[2018-08-07] MEDS: CIPROFLOXACIN 400 MG/D5% WATER 200 ML IV SCH (08:03)
[2018-08-07] MEDS: DOCUSATE SODIUM 100 MG CAPSULE GT SCH ×2 (08:03→22:39)
[2018-08-07] MEDS: FUROSEMIDE 40 MG TABLET GT SCH (08:04)
[2018-08-07] MEDS: METOPROLOL TARTRATE 25 MG TABLET GT SCH (08:04)
[2018-08-07] MEDS: ATORVASTATIN CALCIUM 10 MG TABLET GT SCH (08:04)
[2018-08-07] MEDS: PANTOPRAZOLE SODIUM 40 MG/VIAL IVP SCH ×2 (08:05→22:39)
[2018-08-07 08:09] LABS: GLUCOMETER DEV NAME(LOC) 5S.2; GLUCOSE,POINT OF CARE 104 MG/DL (70-110)
[2018-08-07 08:36] VITALS: BP 125/71
[2018-08-07] MEDS ORDERED: OxyCODONE HCL/ACETAMINOPHEN 5-325 MG TABLET GT PRN ×2 (11:15)
[2018-08-07] MEDS ORDERED: SULFAMETHOX/TRIMETH DS 800-160 MG/TABLET PO SCH (11:30)
[2018-08-07 11:46] VITALS: BP 102/74
[2018-08-07] MEDS: SULFAMETHOX/TRIMETH DS 800-160 MG/TABLET GT SCH ×2 (12:51→22:40)
[2018-08-07 15:52] VITALS: BP 110/65
[2018-08-07 17:40] LABS: GLUCOMETER DEV NAME(LOC) 5N.1; GLUCOSE,POINT OF CARE 117 MG/DL (70-110)
[2018-08-07 20:20] VITALS: BP 112/72
[2018-08-07] MEDS ORDERED: SULFAMETHOX/TRIMETH DS 800-160 MG/TABLET GT SCH (21:00)
[2018-08-07] MEDS ORDERED: GABAPENTIN 100 MG CAPSULE GT SCH (21:00)
[2018-08-07] MEDS: ASPIRIN 81 MG EC TABLET PO SCH (22:38)
[2018-08-07] MEDS: ZOLPIDEM TARTRATE 5 MG TABLET GT SCH (22:38)
[2018-08-07] MEDS: GABAPENTIN 300 MG CAPSULE GT SCH (22:38)
[2018-08-07] MEDS: APIXABAN 5 MG TABLET PO SCH (22:39)
[2018-08-07] MEDS: CARBOXYMETHYLCELLULOSE SODIUM 0.4 ML OPHTHALMIC SOLUTION [PF] OU SCH (22:39)
[2018-08-08 00:13] VITALS: BP 111/64
[2018-08-08 03:24] LABS: GLUCOMETER DEV NAME(LOC) 5S.2; GLUCOSE,POINT OF CARE 117 MG/DL (70-110)
[2018-08-08] MEDS: LEVOTHYROXINE SODIUM 50 MCG TABLET GT SCH (05:20)
[2018-08-08 05:23] VITALS: BP 97/53
[2018-08-08 05:43] LABS: BASOPHILS % (AUTO) 0.8 % (0.0-2.0); EOSINOPHILS % (AUTO) 3.5 % (1.0-6.0); HEMATOCRIT 38.3 % (36-46); HEMOGLOBIN 12.3 g/dL (12.0-16.0); LYMPHOCYTES # (AUTO) 2.4 K/uL (1.0-4.8); LYMPHOCYTES % (AUTO) 27.8 % (22.0-44.0); MEAN CORPUSCULAR HEMOGLOBIN 24.7 pg (26.0-34.0); MEAN CORPUSCULAR VOLUME 77 fL (80-100); MONOCYTES % (AUTO) 12.2 % (2.0-9.0); NEUTROPHILS # (AUTO) 4.8 K/uL (1.8-7.7); NEUTROPHILS % (AUTO) 55.7 % (40.0-70.0); PLATELET COUNT (AUTO) 335 K/uL (150-450); RED BLOOD CELL COUNT(AUTO) 4.96 MIL/uL (4.00-5.20); RED CELL DISTRIBUTION WIDTH 18.3 % (11.5-14.5)
[2018-08-08] MEDS: INSULIN REGULAR, HUMAN 100 UNITS/ML SQ PRN ×2 (06:08→18:33)
[2018-08-08 06:10] LABS: INR 1.2 (0.9-1.1); PROTHROMBIN TIME 12.7 SEC (9.4-11.6)
[2018-08-08 06:11] LABS: ANION GAP 4 mmol/L (8-16); CALCIUM, TOTAL 9.1 mg/dL (8.8-10.5); CARBON DIOXIDE 31 mmol/L (22-29); CHLORIDE 100 mmol/L (98-107); CREATININE 0.75 mg/dL (0.60-1.30); GLUCOSE,RANDOM 121 mg/dL (70-110); SODIUM SERUM 135 mmol/L (136-145)
[2018-08-08 06:20] LABS: GLUCOMETER DEV NAME(LOC) 5N.1; GLUCOSE,POINT OF CARE 128 MG/DL (70-110)
[2018-08-08 06:20] LABS: GLUCOMETER DEV NAME(LOC) 5S.2; GLUCOSE,POINT OF CARE 156 MG/DL (70-110)
[2018-08-08 06:49] LABS: GLOMERULAR FILTR. RATE CALC > 60 mL/min (>60)
[2018-08-08 07:06] LABS: UREA NITROGEN, BLOOD 18 mg/dL (7-18)
[2018-08-08 08:02] VITALS: BP 110/72
[2018-08-08] MEDS: DOCUSATE SODIUM 100 MG CAPSULE GT SCH ×2 (09:00→21:01)
[2018-08-08] MEDS: PANTOPRAZOLE SODIUM 40 MG/VIAL IVP SCH ×2 (09:47→21:02)
[2018-08-08] MEDS: GABAPENTIN 300 MG CAPSULE GT SCH ×2 (09:47→21:02)
[2018-08-08] MEDS: CARBOXYMETHYLCELLULOSE SODIUM 0.4 ML OPHTHALMIC SOLUTION [PF] OU SCH ×2 (09:47→21:02)
[2018-08-08] MEDS: FLUTICASONE PROPIONATE 50 MCG/SPRAY 16 GM NASAL SPRAY NASAL SCH (09:47)
[2018-08-08] MEDS: METOPROLOL TARTRATE 25 MG TABLET GT SCH (09:48)
[2018-08-08] MEDS: SULFAMETHOX/TRIMETH DS 800-160 MG/TABLET GT SCH ×2 (09:48→21:01)
[2018-08-08] MEDS: ASPIRIN 81 MG EC TABLET PO SCH (09:48)
[2018-08-08] MEDS: FUROSEMIDE 40 MG TABLET GT SCH (09:48)
[2018-08-08] MEDS: APIXABAN 5 MG TABLET PO SCH ×2 (09:48→21:02)
[2018-08-08] MEDS: ATORVASTATIN CALCIUM 10 MG TABLET GT SCH (09:48)
[2018-08-08 11:55] VITALS: BP 118/68
[2018-08-08 15:59] VITALS: BP 109/59
[2018-08-08 20:30] VITALS: BP 108/64
[2018-08-08] MEDS: ZOLPIDEM TARTRATE 5 MG TABLET GT SCH (21:01)
[2018-08-09] MEDS: INSULIN REGULAR, HUMAN 100 UNITS/ML SQ PRN ×3 (00:04→18:16)
[2018-08-09 00:16] VITALS: BP 100/57
[2018-08-09] MEDS: LEVOTHYROXINE SODIUM 50 MCG TABLET GT SCH (05:30)
[2018-08-09 05:31] VITALS: BP 127/69
[2018-08-09 06:06] LABS: BASOPHILS % (AUTO) 0.8 % (0.0-2.0); EOSINOPHILS % (AUTO) 4.9 % (1.0-6.0); HEMATOCRIT 38.4 % (36-46); HEMOGLOBIN 12.1 g/dL (12.0-16.0); LYMPHOCYTES # (AUTO) 1.7 K/uL (1.0-4.8); LYMPHOCYTES % (AUTO) 20.2 % (22.0-44.0); MEAN CORPUSCULAR HEMOGLOBIN 24.4 pg (26.0-34.0); MEAN CORPUSCULAR HGB CONC 31.5 G/dL (31.0-37.0); MEAN CORPUSCULAR VOLUME 77 fL (80-100); MONOCYTES # (AUTO) 0.8 K/uL (0.1-1.0); MONOCYTES % (AUTO) 9.5 % (2.0-9.0); NEUTROPHILS # (AUTO) 5.4 K/uL (1.8-7.7); NEUTROPHILS % (AUTO) 64.6 % (40.0-70.0); PLATELET COUNT (AUTO) 318 K/uL (150-450); RED BLOOD CELL COUNT(AUTO) 4.96 MIL/uL (4.00-5.20); RED CELL DISTRIBUTION WIDTH 18.4 % (11.5-14.5)
[2018-08-09 06:25] LABS: ANION GAP 7 mmol/L (8-16); CALCIUM, TOTAL 8.9 mg/dL (8.8-10.5); CARBON DIOXIDE 30 mmol/L (22-29); CHLORIDE 100 mmol/L (98-107); CREATININE 0.68 mg/dL (0.60-1.30); GLOMERULAR FILTR. RATE CALC > 60 mL/min (>60); GLUCOSE,RANDOM 101 mg/dL (70-110); SODIUM SERUM 137 mmol/L (136-145); UREA NITROGEN, BLOOD 25 mg/dL (7-18)
[2018-08-09] MEDS: ATORVASTATIN CALCIUM 10 MG TABLET GT SCH (08:55)
[2018-08-09] MEDS: DOCUSATE SODIUM 100 MG CAPSULE GT SCH ×2 (08:55→22:16)
[2018-08-09] MEDS: FUROSEMIDE 40 MG TABLET GT SCH (08:56)
[2018-08-09] MEDS: METOPROLOL TARTRATE 25 MG TABLET GT SCH (08:56)
[2018-08-09] MEDS: SULFAMETHOX/TRIMETH DS 800-160 MG/TABLET GT SCH ×2 (08:56→22:16)
[2018-08-09] MEDS: GABAPENTIN 300 MG CAPSULE GT SCH ×2 (08:56→22:16)
[2018-08-09] MEDS: ASPIRIN 81 MG EC TABLET PO SCH (08:56)
[2018-08-09] MEDS: APIXABAN 5 MG TABLET PO SCH ×2 (08:56→22:17)
[2018-08-09] MEDS: PANTOPRAZOLE SODIUM 40 MG/VIAL IVP SCH ×2 (08:57→22:16)
[2018-08-09 11:06] VITALS: BP 112/67
[2018-08-09] MEDS: CARBOXYMETHYLCELLULOSE SODIUM 0.4 ML OPHTHALMIC SOLUTION [PF] OU SCH ×2 (12:39→22:17)
[2018-08-09] MEDS: FLUTICASONE PROPIONATE 50 MCG/SPRAY 16 GM NASAL SPRAY NASAL SCH (12:39)
[2018-08-09 15:31] VITALS: BP 106/64
[2018-08-09 20:23] VITALS: BP 126/67
[2018-08-09 20:28] LABS: GLUCOMETER DEV NAME(LOC) 5S.2; GLUCOSE,POINT OF CARE 151 MG/DL (70-110)
[2018-08-09 20:28] LABS: GLUCOMETER DEV NAME(LOC) 5S.2; GLUCOSE,POINT OF CARE 168 MG/DL (70-110)
[2018-08-09 20:29] LABS: GLUCOMETER DEV NAME(LOC) 5S.2; GLUCOSE,POINT OF CARE 157 MG/DL (70-110)
[2018-08-09 20:29] LABS: GLUCOMETER DEV NAME(LOC) 5S.2; GLUCOSE,POINT OF CARE 149 MG/DL (70-110)
[2018-08-09] MEDS: ZOLPIDEM TARTRATE 5 MG TABLET GT SCH (22:16)
[2018-08-09 23:40] VITALS: BP 99/59
[2018-08-10] MEDS: INSULIN REGULAR, HUMAN 100 UNITS/ML SQ PRN ×4 (00:44→18:27)
[2018-08-10 04:35] VITALS: BP 112/71
[2018-08-10 05:00] LABS: GLUCOMETER DEV NAME(LOC) 5N.1; GLUCOSE,POINT OF CARE 123 MG/DL (70-110)
[2018-08-10 05:00] LABS: GLUCOMETER DEV NAME(LOC) 5N.1; GLUCOSE,POINT OF CARE 108 MG/DL (70-110)
[2018-08-10 05:01] LABS: GLUCOMETER DEV NAME(LOC) 5N.1; GLUCOSE,POINT OF CARE 168 MG/DL (70-110)
[2018-08-10] MEDS: LEVOTHYROXINE SODIUM 50 MCG TABLET GT SCH (05:36)
[2018-08-10 06:09] LABS: BASOPHILS % (AUTO) 0.4 % (0.0-2.0); EOSINOPHILS % (AUTO) 4.9 % (1.0-6.0); HEMATOCRIT 36.8 % (36-46); LYMPHOCYTES # (AUTO) 1.7 K/uL (1.0-4.8); LYMPHOCYTES % (AUTO) 18.5 % (22.0-44.0); MEAN CORPUSCULAR HEMOGLOBIN 25.3 pg (26.0-34.0); MEAN CORPUSCULAR HGB CONC 32.6 G/dL (31.0-37.0); MEAN CORPUSCULAR VOLUME 78 fL (80-100); MONOCYTES # (AUTO) 0.7 K/uL (0.1-1.0); MONOCYTES % (AUTO) 7.6 % (2.0-9.0); NEUTROPHILS # (AUTO) 6.4 K/uL (1.8-7.7); NEUTROPHILS % (AUTO) 68.6 % (40.0-70.0); PLATELET COUNT (AUTO) 318 K/uL (150-450); RED BLOOD CELL COUNT(AUTO) 4.75 MIL/uL (4.00-5.20); RED CELL DISTRIBUTION WIDTH 18.2 % (11.5-14.5)
[2018-08-10 06:21] LABS: ANION GAP 5 mmol/L (8-16); CALCIUM, TOTAL 8.9 mg/dL (8.8-10.5); CARBON DIOXIDE 31 mmol/L (22-29); CHLORIDE 102 mmol/L (98-107); CREATININE 0.71 mg/dL (0.60-1.30); GLUCOSE,RANDOM 138 mg/dL (70-110); INR 1.4 (0.9-1.1); PROTHROMBIN TIME 14.2 SEC (9.4-11.6); SODIUM SERUM 138 mmol/L (136-145); UREA NITROGEN, BLOOD 29 mg/dL (7-18)
[2018-08-10 06:23] LABS: GLOMERULAR FILTR. RATE CALC > 60 mL/min (>60)
[2018-08-10 08:10] VITALS: BP 111/58
[2018-08-10] MEDS: PANTOPRAZOLE SODIUM 40 MG/VIAL IVP SCH ×2 (09:03→21:32)
[2018-08-10] MEDS: METOPROLOL TARTRATE 25 MG TABLET GT SCH (09:03)
[2018-08-10] MEDS: DOCUSATE SODIUM 100 MG CAPSULE GT SCH ×2 (09:03→20:58)
[2018-08-10] MEDS: SULFAMETHOX/TRIMETH DS 800-160 MG/TABLET GT SCH ×2 (09:03→20:58)
[2018-08-10] MEDS: FUROSEMIDE 40 MG TABLET GT SCH (09:03)
[2018-08-10] MEDS: APIXABAN 5 MG TABLET PO SCH ×2 (09:03→20:58)
[2018-08-10] MEDS: FLUTICASONE PROPIONATE 50 MCG/SPRAY 16 GM NASAL SPRAY NASAL SCH (09:04)
[2018-08-10] MEDS: ATORVASTATIN CALCIUM 10 MG TABLET GT SCH (09:04)
[2018-08-10] MEDS: ASPIRIN 81 MG EC TABLET PO SCH (09:04)
[2018-08-10] MEDS: GABAPENTIN 300 MG CAPSULE GT SCH ×2 (09:04→20:57)
[2018-08-10 11:28] VITALS: BP 96/54
[2018-08-10] MEDS: CARBOXYMETHYLCELLULOSE SODIUM 0.4 ML OPHTHALMIC SOLUTION [PF] OU SCH ×2 (12:57→20:58)
[2018-08-10 14:05] LABS: GLUCOMETER DEV NAME(LOC) 5N.1; GLUCOSE,POINT OF CARE 85 MG/DL (70-110)
[2018-08-10 14:05] LABS: GLUCOMETER DEV NAME(LOC) 5S.2; GLUCOSE,POINT OF CARE 172 MG/DL (70-110)
[2018-08-10 15:52] VITALS: BP 95/54
[2018-08-10 18:39] LABS: GLUCOMETER DEV NAME(LOC) 5N.1; GLUCOSE,POINT OF CARE 146 MG/DL (70-110)
[2018-08-10 19:26] VITALS: BP 111/63
[2018-08-10] MEDS: ZOLPIDEM TARTRATE 5 MG TABLET GT SCH (21:00)
[2018-08-10 23:50] VITALS: BP 108/60
[2018-08-11 04:48] VITALS: BP 108/56
[2018-08-11 04:59] LABS: GLUCOMETER DEV NAME(LOC) 5S.2; GLUCOSE,POINT OF CARE 122 MG/DL (70-110)
[2018-08-11] MEDS: LEVOTHYROXINE SODIUM 50 MCG TABLET GT SCH (06:17)
[2018-08-11 06:33] LABS: BASOPHILS % (AUTO) 0.7 % (0.0-2.0); EOSINOPHILS % (AUTO) 4.3 % (1.0-6.0); HEMATOCRIT 35.9 % (36-46); HEMOGLOBIN 11.5 g/dL (12.0-16.0); LYMPHOCYTES # (AUTO) 1.7 K/uL (1.0-4.8); MEAN CORPUSCULAR HEMOGLOBIN 24.7 pg (26.0-34.0); MEAN CORPUSCULAR HGB CONC 32.1 G/dL (31.0-37.0); MEAN CORPUSCULAR VOLUME 77 fL (80-100); MONOCYTES # (AUTO) 0.9 K/uL (0.1-1.0); MONOCYTES % (AUTO) 8.4 % (2.0-9.0); NEUTROPHILS # (AUTO) 7.1 K/uL (1.8-7.7); NEUTROPHILS % (AUTO) 69.6 % (40.0-70.0); PLATELET COUNT (AUTO) 332 K/uL (150-450); RED BLOOD CELL COUNT(AUTO) 4.66 MIL/uL (4.00-5.20); RED CELL DISTRIBUTION WIDTH 18.1 % (11.5-14.5)
[2018-08-11 06:41] LABS: INR 1.3 (0.9-1.1); PROTHROMBIN TIME 13.3 SEC (9.4-11.6)
[2018-08-11 06:48] LABS: ALANINE AMINOTRANSFERASE 39 U/L (12-78); ALBUMIN 2.6 g/dL (3.4-5.0); ALKALINE PHOSPHATASE 193 U/L (46-116); ANION GAP 5 mmol/L (8-16); ASPARTATE AMINOTRANSFERASE 34 U/L (15-37); BILIRUBIN,TOTAL 0.3 mg/dL (0.1-1.0); CALCIUM, TOTAL 8.7 mg/dL (8.8-10.5); CARBON DIOXIDE 32 mmol/L (22-29); CHLORIDE 104 mmol/L (98-107); CREATININE 0.73 mg/dL (0.60-1.30); GLUCOSE,RANDOM 140 mg/dL (70-110); POTASSIUM 4.4 mmol/L (3.5-5.1); SODIUM SERUM 141 mmol/L (136-145); TOTAL PROTEIN, SERUM 6.2 g/dL (6.4-8.2); UREA NITROGEN, BLOOD 30 mg/dL (7-18)
[2018-08-11 06:49] LABS: GLOMERULAR FILTR. RATE CALC > 60 mL/min (>60)
[2018-08-11 08:05] VITALS: BP 109/66
[2018-08-11] MEDS: SULFAMETHOX/TRIMETH DS 800-160 MG/TABLET GT SCH ×2 (09:54→21:33)
[2018-08-11] MEDS: APIXABAN 5 MG TABLET PO SCH ×2 (09:56→21:33)
[2018-08-11] MEDS: METOPROLOL TARTRATE 25 MG TABLET GT SCH (09:56)
[2018-08-11] MEDS: ATORVASTATIN CALCIUM 10 MG TABLET GT SCH (09:56)
[2018-08-11] MEDS: GABAPENTIN 300 MG CAPSULE GT SCH ×2 (09:57→21:33)
[2018-08-11] MEDS: DOCUSATE SODIUM 100 MG CAPSULE GT SCH ×2 (09:58→21:00)
[2018-08-11] MEDS: PANTOPRAZOLE SODIUM 40 MG/VIAL IVP SCH ×2 (09:58→21:33)
[2018-08-11] MEDS: FUROSEMIDE 40 MG TABLET GT SCH (09:58)
[2018-08-11] MEDS: FLUTICASONE PROPIONATE 50 MCG/SPRAY 16 GM NASAL SPRAY NASAL SCH (09:58)
[2018-08-11] MEDS: CARBOXYMETHYLCELLULOSE SODIUM 0.4 ML OPHTHALMIC SOLUTION [PF] OU SCH ×2 (09:59→21:33)
[2018-08-11 11:34] VITALS: BP 107/62
[2018-08-11] MEDS: INSULIN REGULAR, HUMAN 100 UNITS/ML SQ PRN ×2 (12:13→18:11)
[2018-08-11 12:45] LABS: GLUCOMETER DEV NAME(LOC) 5S.2; GLUCOSE,POINT OF CARE 172 MG/DL (70-110)
[2018-08-11 12:45] LABS: GLUCOMETER DEV NAME(LOC) 5S.2; GLUCOSE,POINT OF CARE 127 MG/DL (70-110)
[2018-08-11 15:57] VITALS: BP 102/56
[2018-08-11 20:19] VITALS: BP 115/68
[2018-08-11] MEDS: ZOLPIDEM TARTRATE 5 MG TABLET GT SCH (21:00)
[2018-08-12] VITALS (7 sets, daily range): BP systolic 92–110; BP diastolic 52–66
[2018-08-12] MEDS: INSULIN REGULAR, HUMAN 100 UNITS/ML SQ PRN ×2 (00:04→15:15)
[2018-08-12 05:25] LABS: GLUCOMETER DEV NAME(LOC) 5S.2; GLUCOSE,POINT OF CARE 141 MG/DL (70-110)
[2018-08-12 06:24] LABS: BASOPHILS % (AUTO) 0.7 % (0.0-2.0); EOSINOPHILS % (AUTO) 4.8 % (1.0-6.0); HEMATOCRIT 36.4 % (36-46); HEMOGLOBIN 11.5 g/dL (12.0-16.0); LYMPHOCYTES % (AUTO) 20.1 % (22.0-44.0); MEAN CORPUSCULAR HEMOGLOBIN 24.7 pg (26.0-34.0); MEAN CORPUSCULAR HGB CONC 31.6 G/dL (31.0-37.0); MEAN CORPUSCULAR VOLUME 78 fL (80-100); MONOCYTES # (AUTO) 0.8 K/uL (0.1-1.0); MONOCYTES % (AUTO) 8.2 % (2.0-9.0); NEUTROPHILS # (AUTO) 6.4 K/uL (1.8-7.7); NEUTROPHILS % (AUTO) 66.2 % (40.0-70.0); PLATELET COUNT (AUTO) 342 K/uL (150-450); RED BLOOD CELL COUNT(AUTO) 4.66 MIL/uL (4.00-5.20); RED CELL DISTRIBUTION WIDTH 18.5 % (11.5-14.5)
[2018-08-12] MEDS: LEVOTHYROXINE SODIUM 50 MCG TABLET GT SCH (06:38)
[2018-08-12 06:54] LABS: ALANINE AMINOTRANSFERASE 40 U/L (12-78); ALBUMIN 2.6 g/dL (3.4-5.0); ALKALINE PHOSPHATASE 183 U/L (46-116); ANION GAP 5 mmol/L (8-16); ASPARTATE AMINOTRANSFERASE 25 U/L (15-37); BILIRUBIN,TOTAL 0.3 mg/dL (0.1-1.0); CARBON DIOXIDE 30 mmol/L (22-29); CHLORIDE 105 mmol/L (98-107); CREATININE 0.72 mg/dL (0.60-1.30); GLUCOSE,RANDOM 137 mg/dL (70-110); POTASSIUM 4.5 mmol/L (3.5-5.1); SODIUM SERUM 140 mmol/L (136-145); TOTAL PROTEIN, SERUM 6.5 g/dL (6.4-8.2); UREA NITROGEN, BLOOD 29 mg/dL (7-18)
[2018-08-12 06:59] LABS: GLOMERULAR FILTR. RATE CALC > 60 mL/min (>60)
[2018-08-12 07:24] LABS: INR 1.2 (0.9-1.1); PROTHROMBIN TIME 12.2 SEC (9.4-11.6)
[2018-08-12] MEDS: DOCUSATE SODIUM 100 MG CAPSULE GT SCH ×2 (09:00→21:00)
[2018-08-12] MEDS: APIXABAN 5 MG TABLET PO SCH ×2 (09:09→21:25)
[2018-08-12] MEDS: FLUTICASONE PROPIONATE 50 MCG/SPRAY 16 GM NASAL SPRAY NASAL SCH (09:09)
[2018-08-12] MEDS: PANTOPRAZOLE SODIUM 40 MG/VIAL IVP SCH ×2 (09:09→21:15)
[2018-08-12] MEDS: GABAPENTIN 300 MG CAPSULE GT SCH ×2 (09:09→21:15)
[2018-08-12] MEDS: SULFAMETHOX/TRIMETH DS 800-160 MG/TABLET GT SCH ×2 (09:09→21:15)
[2018-08-12] MEDS: ATORVASTATIN CALCIUM 10 MG TABLET GT SCH (09:09)
[2018-08-12] MEDS: CARBOXYMETHYLCELLULOSE SODIUM 0.4 ML OPHTHALMIC SOLUTION [PF] OU SCH ×2 (09:11→21:16)
[2018-08-12] MEDS: FUROSEMIDE 40 MG TABLET GT SCH (11:26)
[2018-08-12] MEDS: METOPROLOL TARTRATE 25 MG TABLET GT SCH ×2 (11:26→21:00)
[2018-08-12 20:39] LABS: GLUCOMETER DEV NAME(LOC) 5S.2; GLUCOSE,POINT OF CARE 129 MG/DL (70-110)
[2018-08-12] MEDS: ZOLPIDEM TARTRATE 5 MG TABLET GT SCH (21:00)
[2018-08-13 00:12] VITALS: BP 100/55
[2018-08-13] MEDS: LEVOTHYROXINE SODIUM 50 MCG TABLET GT SCH (05:56)
[2018-08-13 05:58] VITALS: BP 106/67
[2018-08-13 06:27] LABS: BASOPHILS % (AUTO) 1.1 % (0.0-2.0); EOSINOPHILS % (AUTO) 5.5 % (1.0-6.0); HEMATOCRIT 34.2 % (36-46); HEMOGLOBIN 11.1 g/dL (12.0-16.0); LYMPHOCYTES % (AUTO) 21.6 % (22.0-44.0); MEAN CORPUSCULAR HEMOGLOBIN 25.2 pg (26.0-34.0); MEAN CORPUSCULAR HGB CONC 32.5 G/dL (31.0-37.0); MEAN CORPUSCULAR VOLUME 78 fL (80-100); MONOCYTES # (AUTO) 0.8 K/uL (0.1-1.0); MONOCYTES % (AUTO) 8.8 % (2.0-9.0); NEUTROPHILS # (AUTO) 5.8 K/uL (1.8-7.7); PLATELET COUNT (AUTO) 332 K/uL (150-450); RED CELL DISTRIBUTION WIDTH 18.5 % (11.5-14.5)
[2018-08-13 06:49] LABS: ANION GAP 5 mmol/L (8-16); CALCIUM, TOTAL 8.8 mg/dL (8.8-10.5); CARBON DIOXIDE 29 mmol/L (22-29); CHLORIDE 104 mmol/L (98-107); CREATININE 0.74 mg/dL (0.60-1.30); GLUCOSE,RANDOM 138 mg/dL (70-110); POTASSIUM 4.3 mmol/L (3.5-5.1); SODIUM SERUM 138 mmol/L (136-145); UREA NITROGEN, BLOOD 27 mg/dL (7-18)
[2018-08-13 06:59] LABS: GLOMERULAR FILTR. RATE CALC > 60 mL/min (>60)
[2018-08-13 07:24] LABS: GLUCOMETER DEV NAME(LOC) 5N.1; GLUCOSE,POINT OF CARE 117 MG/DL (70-110)
[2018-08-13 07:24] LABS: GLUCOMETER DEV NAME(LOC) 5N.1; GLUCOSE,POINT OF CARE 141 MG/DL (70-110)
[2018-08-13 07:25] LABS: GLUCOMETER DEV NAME(LOC) 5N.1; GLUCOSE,POINT OF CARE 122 MG/DL (70-110)
[2018-08-13 07:25] LABS: GLUCOMETER DEV NAME(LOC) 5S.2; GLUCOSE,POINT OF CARE 125 MG/DL (70-110)
[2018-08-13 07:25] LABS: GLUCOMETER DEV NAME(LOC) 5N.1; GLUCOSE,POINT OF CARE 156 MG/DL (70-110)
[2018-08-13 08:28] VITALS: BP 96/57
[2018-08-13] MEDS: METOPROLOL TARTRATE 25 MG TABLET GT SCH ×2 (09:00→21:00)
[2018-08-13] MEDS: DOCUSATE SODIUM 100 MG CAPSULE GT SCH ×2 (09:00→21:42)
[2018-08-13] MEDS: FUROSEMIDE 20 MG TABLET GT SCH (09:19)
[2018-08-13] MEDS: APIXABAN 5 MG TABLET PO SCH ×2 (09:19→21:42)
[2018-08-13] MEDS: FLUTICASONE PROPIONATE 50 MCG/SPRAY 16 GM NASAL SPRAY NASAL SCH (09:19)
[2018-08-13] MEDS: SULFAMETHOX/TRIMETH DS 800-160 MG/TABLET GT SCH ×2 (09:19→21:42)
[2018-08-13] MEDS: PANTOPRAZOLE SODIUM 40 MG/VIAL IVP SCH ×2 (09:19→21:43)
[2018-08-13] MEDS: GABAPENTIN 300 MG CAPSULE GT SCH ×2 (09:19→21:42)
[2018-08-13] MEDS: CARBOXYMETHYLCELLULOSE SODIUM 0.4 ML OPHTHALMIC SOLUTION [PF] OU SCH ×2 (09:21→21:42)
[2018-08-13] MEDS: ATORVASTATIN CALCIUM 10 MG TABLET GT SCH (09:21)
[2018-08-13 12:19] VITALS: BP 91/56
[2018-08-13 16:25] VITALS: BP 91/55
[2018-08-13 17:24] LABS: GLUCOMETER DEV NAME(LOC) 5N.1; GLUCOSE,POINT OF CARE 126 MG/DL (70-110)
[2018-08-13 19:41] VITALS: BP 108/76
[2018-08-13] MEDS: ZOLPIDEM TARTRATE 5 MG TABLET GT SCH (21:42)
[2018-08-14] VITALS (7 sets, daily range): BP systolic 96–127; BP diastolic 53–72
[2018-08-14] MEDS: LEVOTHYROXINE SODIUM 50 MCG TABLET GT SCH (05:15)
[2018-08-14] MEDS: ACETAMINOPHEN 325 MG TABLET GT PRN ×2 (05:50→18:56)
[2018-08-14 06:39] LABS: BASOPHILS % (AUTO) 0.8 % (0.0-2.0); EOSINOPHILS % (AUTO) 6.2 % (1.0-6.0); HEMATOCRIT 33.2 % (36-46); HEMOGLOBIN 10.7 g/dL (12.0-16.0); LYMPHOCYTES # (AUTO) 1.8 K/uL (1.0-4.8); LYMPHOCYTES % (AUTO) 20.6 % (22.0-44.0); MEAN CORPUSCULAR HEMOGLOBIN 24.7 pg (26.0-34.0); MEAN CORPUSCULAR HGB CONC 32.3 G/dL (31.0-37.0); MEAN CORPUSCULAR VOLUME 76 fL (80-100); MONOCYTES # (AUTO) 0.7 K/uL (0.1-1.0); MONOCYTES % (AUTO) 8.5 % (2.0-9.0); NEUTROPHILS # (AUTO) 5.6 K/uL (1.8-7.7); NEUTROPHILS % (AUTO) 63.9 % (40.0-70.0); PLATELET COUNT (AUTO) 338 K/uL (150-450); RED BLOOD CELL COUNT(AUTO) 4.35 MIL/uL (4.00-5.20); RED CELL DISTRIBUTION WIDTH 18.6 % (11.5-14.5)
[2018-08-14 07:00] LABS: ALANINE AMINOTRANSFERASE 42 U/L (12-78); ALBUMIN 2.6 g/dL (3.4-5.0); ALKALINE PHOSPHATASE 187 U/L (46-116); ANION GAP 6 mmol/L (8-16); ASPARTATE AMINOTRANSFERASE 39 U/L (15-37); BILIRUBIN,TOTAL 0.2 mg/dL (0.1-1.0); CALCIUM, TOTAL 8.8 mg/dL (8.8-10.5); CARBON DIOXIDE 29 mmol/L (22-29); CHLORIDE 102 mmol/L (98-107); CREATININE 0.65 mg/dL (0.60-1.30); GLUCOSE,RANDOM 115 mg/dL (70-110); POTASSIUM 4.8 mmol/L (3.5-5.1); SODIUM SERUM 137 mmol/L (136-145); TOTAL PROTEIN, SERUM 5.9 g/dL (6.4-8.2); UREA NITROGEN, BLOOD 26 mg/dL (7-18)
[2018-08-14 07:01] LABS: GLOMERULAR FILTR. RATE CALC > 60 mL/min (>60)
[2018-08-14] MEDS: METOPROLOL TARTRATE 25 MG TABLET GT SCH (09:00)
[2018-08-14] MEDS: FUROSEMIDE 20 MG TABLET GT SCH (09:00)
[2018-08-14] MEDS: DOCUSATE SODIUM 100 MG CAPSULE GT SCH ×2 (09:00→22:04)
[2018-08-14] MEDS: PANTOPRAZOLE SODIUM 40 MG/VIAL IVP SCH ×2 (10:32→22:05)
[2018-08-14] MEDS: ATORVASTATIN CALCIUM 10 MG TABLET GT SCH (10:33)
[2018-08-14] MEDS: FLUTICASONE PROPIONATE 50 MCG/SPRAY 16 GM NASAL SPRAY NASAL SCH (10:33)
[2018-08-14] MEDS: SULFAMETHOX/TRIMETH DS 800-160 MG/TABLET GT SCH ×2 (10:33→22:04)
[2018-08-14] MEDS: CARBOXYMETHYLCELLULOSE SODIUM 0.4 ML OPHTHALMIC SOLUTION [PF] OU SCH ×2 (10:33→22:05)
[2018-08-14] MEDS: APIXABAN 5 MG TABLET PO SCH ×2 (10:33→22:05)
[2018-08-14] MEDS: GABAPENTIN 300 MG CAPSULE GT SCH ×2 (10:33→22:04)
[2018-08-14] MEDS: ZOLPIDEM TARTRATE 5 MG TABLET GT SCH (22:04)
[2018-08-15] MEDS: METOPROLOL TARTRATE 25 MG TABLET GT SCH ×3 (02:02→12:37)
[2018-08-15 02:25] LABS: GLUCOMETER DEV NAME(LOC) 5N.1; GLUCOSE,POINT OF CARE 136 MG/DL (70-110)
[2018-08-15 02:25] LABS: GLUCOMETER DEV NAME(LOC) 5N.1; GLUCOSE,POINT OF CARE 130 MG/DL (70-110)
[2018-08-15 02:25] LABS: GLUCOMETER DEV NAME(LOC) 5N.1; GLUCOSE,POINT OF CARE 113 MG/DL (70-110)
[2018-08-15 02:25] LABS: GLUCOMETER DEV NAME(LOC) 5S.2; GLUCOSE,POINT OF CARE 134 MG/DL (70-110)
[2018-08-15 02:25] LABS: GLUCOMETER DEV NAME(LOC) 5N.1; GLUCOSE,POINT OF CARE 124 MG/DL (70-110)
[2018-08-15 02:26] LABS: GLUCOMETER DEV NAME(LOC) 5S.2; GLUCOSE,POINT OF CARE 87 MG/DL (70-110)
[2018-08-15 04:22] VITALS: BP 118/63
[2018-08-15 06:18] LABS: BASOPHILS % (AUTO) 0.5 % (0.0-2.0); EOSINOPHILS % (AUTO) 6.4 % (1.0-6.0); HEMATOCRIT 35.1 % (36-46); HEMOGLOBIN 11.1 g/dL (12.0-16.0); LYMPHOCYTES # (AUTO) 2.3 K/uL (1.0-4.8); LYMPHOCYTES % (AUTO) 25.4 % (22.0-44.0); MEAN CORPUSCULAR HEMOGLOBIN 24.8 pg (26.0-34.0); MEAN CORPUSCULAR HGB CONC 31.7 G/dL (31.0-37.0); MEAN CORPUSCULAR VOLUME 78 fL (80-100); MONOCYTES # (AUTO) 0.8 K/uL (0.1-1.0); MONOCYTES % (AUTO) 8.8 % (2.0-9.0); NEUTROPHILS # (AUTO) 5.3 K/uL (1.8-7.7); NEUTROPHILS % (AUTO) 58.9 % (40.0-70.0); PLATELET COUNT (AUTO) 355 K/uL (150-450); RED BLOOD CELL COUNT(AUTO) 4.47 MIL/uL (4.00-5.20); RED CELL DISTRIBUTION WIDTH 18.2 % (11.5-14.5)
[2018-08-15] MEDS: LEVOTHYROXINE SODIUM 50 MCG TABLET GT SCH (06:21)
[2018-08-15 07:15] LABS: ALANINE AMINOTRANSFERASE 42 U/L (12-78); ALBUMIN 2.6 g/dL (3.4-5.0); ALKALINE PHOSPHATASE 166 U/L (46-116); ANION GAP 7 mmol/L (8-16); ASPARTATE AMINOTRANSFERASE 36 U/L (15-37); BILIRUBIN,TOTAL 0.3 mg/dL (0.1-1.0); CALCIUM, TOTAL 9.2 mg/dL (8.8-10.5); CARBON DIOXIDE 28 mmol/L (22-29); CHLORIDE 102 mmol/L (98-107); CREATININE 0.76 mg/dL (0.60-1.30); GLOMERULAR FILTR. RATE CALC > 60 mL/min (>60); GLUCOSE,RANDOM 80 mg/dL (70-110); POTASSIUM 4.7 mmol/L (3.5-5.1); SODIUM SERUM 137 mmol/L (136-145); TOTAL PROTEIN, SERUM 6.4 g/dL (6.4-8.2); UREA NITROGEN, BLOOD 24 mg/dL (7-18)
[2018-08-15 07:45] VITALS: BP 98/58
[2018-08-15] MEDS: DOCUSATE SODIUM 100 MG CAPSULE GT SCH ×2 (09:00→09:43)
[2018-08-15] MEDS: FUROSEMIDE 20 MG TABLET GT SCH (09:00)
[2018-08-15 09:29] LABS: GLUCOMETER DEV NAME(LOC) 5S.2; GLUCOSE,POINT OF CARE 76 MG/DL (70-110)
[2018-08-15] MEDS: SULFAMETHOX/TRIMETH DS 800-160 MG/TABLET GT SCH (09:43)
[2018-08-15] MEDS: APIXABAN 5 MG TABLET PO SCH (09:43)
[2018-08-15] MEDS: PANTOPRAZOLE SODIUM 40 MG/VIAL IVP SCH (09:43)
[2018-08-15] MEDS: ATORVASTATIN CALCIUM 10 MG TABLET GT SCH (09:44)
[2018-08-15] MEDS: GABAPENTIN 300 MG CAPSULE GT SCH (09:44)
[2018-08-15] MEDS: CARBOXYMETHYLCELLULOSE SODIUM 0.4 ML OPHTHALMIC SOLUTION [PF] OU SCH (09:44)
[2018-08-15] MEDS: FLUTICASONE PROPIONATE 50 MCG/SPRAY 16 GM NASAL SPRAY NASAL SCH (09:44)
[2018-08-15 10:51] VITALS: BP 123/69
[2018-08-15] MEDS ORDERED: APIX5TAB PO (14:35)
[2018-08-15] MEDS ORDERED: PANT40TA25 PO (14:39)
[2018-08-15] MEDS ORDERED: CARB30DR OU (14:41)
[2018-08-15 15:24] VITALS: BP 109/53
[2018-08-15 21:20] LABS: GLUCOMETER DEV NAME(LOC) 5S.2; GLUCOSE,POINT OF CARE 122 MG/DL (70-110)
== END 2018-08-15 16:50 | disposition home health service (06) | DRG 377 ==
LOC: EMS 13:11 → ICU 18:04 → 5S 08-06 16:19
PROVIDERS: ADMIT Internal Medicine; ATTEND Internal Medicine
PROC: 30233K1 Transfusion of Nonautologous Frozen Plasma into Peripheral Vein, Percutaneous Approach (ICD-10-PCS; principal; 2018-08-05)
PROC: 05HY33Z Insertion of Infusion Device into Upper Vein, Percutaneous Approach (ICD-10-PCS; 2018-08-05)
PROC: B54NZZ3 Ultrasonography of Left Upper Extremity Veins, Intravascular (ICD-10-PCS; 2018-08-05)
DX: K92.2 Gastrointestinal hemorrhage, unspecified (principal); E43 Unspecified severe protein-calorie malnutrition; G93.41 Metabolic encephalopathy; N39.0 Urinary tract infection, site not specified; D68.32 Hemorrhagic disorder due to extrinsic circulating anticoagulants; I82.412 Acute embolism and thrombosis of left femoral vein; I69.951 Hemiplegia and hemiparesis following unspecified cerebrovascular disease affecting right dominant side; K92.0 Hematemesis; T45.515A Adverse effect of anticoagulants, initial encounter; I48.91 Unspecified atrial fibrillation; R91.1 Solitary pulmonary nodule; B96.20 Unspecified Escherichia coli [E. coli] as the cause of diseases classified elsewhere; D64.9 Anemia, unspecified; E03.9 Hypothyroidism, unspecified; E78.5 Hyperlipidemia, unspecified; F03.90 Unspecified dementia, unspecified severity, without behavioral disturbance, psychotic disturbance, mood disturbance, and anxiety; G43.909 Migraine, unspecified, not intractable, without status migrainosus; I50.9 Heart failure, unspecified; J44.9 Chronic obstructive pulmonary disease, unspecified; K21.9 Gastro-esophageal reflux disease without esophagitis; I11.0 Hypertensive heart disease with heart failure; R13.10 Dysphagia, unspecified; E78.00 Pure hypercholesterolemia, unspecified; M81.0 Age-related osteoporosis without current pathological fracture; Z74.01 Bed confinement status; Z93.1 Gastrostomy status; Y92.89 Other specified places as the place of occurrence of the external cause; Z88.0 Allergy status to penicillin; Z79.01 Long term (current) use of anticoagulants; Z91.040 Latex allergy status; I69.920 Aphasia following unspecified cerebrovascular disease
CPT/HCPCS: 36245; 36430; 36569; 70450; 76937; 82271; 83605; 83735; 84132; 86850; 86900; 86901; 86927; 87081; 87086; 93005; 93971; 96365; 96368; 96372; 96375; 99291; C9113; G0378; J0744; J1940; J2354; J3430; J3480; J7030; J7040; J7050; J7060; P9017

== ENCOUNTER 2018-11-09 05:41 | Inpatient (IN) | payer MEDICARE, MEDICAID ==
[~2018-11-09] VITALS: Ht 160 cm; Wt 73.0 kg
[~2018-11-09 05:41] MED LIST changes: -ACET1TAB12 GT; -AMLO-512 GT; +APIX5TAB PO; -ASPI81TA42 PO; -BENZ-51 PO; -BIOT1CAP3 PO; +CARB30DR OU; -CARV3 GT; -CETI-193 PO; -CYAN250010 PO; -DIGO-44 GT; -DSS100 GT; -ENOX40DI9 SQ; -FE PR; -FERR-89 PO; -GUAIF10 GT; -IPRA3AMP24 IH; -L. A1CAP11 GT; -MOM30 PO; -MULT-1259 PO; -NITR25OR3 PO; +PANT40TA25 PO; -POTA20LI36 PO; -RALO60 PO; -TURM500C3 PO; -VITAD5000 PO
[2018-11-09] MEDS ORDERED: METF500S7 PO (06:08)
[2018-11-09] MEDS ORDERED: FURO20TA4 PO (06:08)
[2018-11-09] MEDS ORDERED: IPRA3AMP23 IH (06:08)
[2018-11-09] MEDS ORDERED: ONDA4TAB4 PO (06:08)
[2018-11-09 06:25] LABS: GLUCOSE,POINT OF CARE 100 MG/DL (70-110)
[2018-11-09 06:54] LABS: BASOPHILS % (AUTO) 0.8 % (0.0-2.0); EOSINOPHILS % (AUTO) 3.2 % (1.0-6.0); HEMATOCRIT 38.5 % (36-46); LYMPHOCYTES # (AUTO) 1.4 K/uL (1.0-4.8); LYMPHOCYTES % (AUTO) 14.7 % (22.0-44.0); MEAN CORPUSCULAR HEMOGLOBIN 24.7 pg (26.0-34.0); MEAN CORPUSCULAR HGB CONC 31.2 G/dL (31.0-37.0); MEAN CORPUSCULAR VOLUME 79 fL (80-100); MONOCYTES # (AUTO) 0.9 K/uL (0.1-1.0); MONOCYTES % (AUTO) 9.4 % (2.0-9.0); NEUTROPHILS # (AUTO) 6.7 K/uL (1.8-7.7); NEUTROPHILS % (AUTO) 71.9 % (40.0-70.0); PLATELET COUNT (AUTO) 266 K/uL (150-450); RED BLOOD CELL COUNT(AUTO) 4.87 MIL/uL (4.00-5.20); RED CELL DISTRIBUTION WIDTH 19.5 % (11.5-14.5)
[2018-11-09 07:06] LABS: ANION GAP 8 mmol/L (8-16); CALCIUM, TOTAL 9.1 mg/dL (8.8-10.5); CARBON DIOXIDE 27 mmol/L (22-29); CHLORIDE 99 mmol/L (98-107); CREATININE 0.53 mg/dL (0.60-1.30); GLUCOSE,RANDOM 96 mg/dL (70-110); SODIUM SERUM 134 mmol/L (136-145); UREA NITROGEN, BLOOD 13 mg/dL (7-18)
[2018-11-09 07:09] LABS: PROTHROMBIN TIME 10.8 SEC (9.4-11.6)
[2018-11-09 07:10] LABS: GLOMERULAR FILTR. RATE CALC > 60 mL/min (>60)
[2018-11-09 07:13] LABS: ALANINE AMINOTRANSFERASE 31 U/L (12-78); ALBUMIN 2.6 g/dL (3.4-5.0); ALKALINE PHOSPHATASE 166 U/L (46-116); ASPARTATE AMINOTRANSFERASE 18 U/L (15-37); B-TYPE NATRIURETIC PEPTIDE 164 pg/mL (0-100); BILIRUBIN,TOTAL 0.3 mg/dL (0.1-1.0); CREATINE KINASE, TOTAL ONLY 17 U/L (26-192); TOTAL PROTEIN, SERUM 6.5 g/dL (6.4-8.2)
[2018-11-09] MEDS ORDERED: IOVERSOL 350 MG/ML 100 ML VIAL ONE (07:24)
[2018-11-09] MEDS ORDERED: SODIUM CHLORIDE 0.9% 100 ML ONE (07:24)
[2018-11-09 08:35] LABS: LIPASE 62 U/L (73-393)
[2018-11-09 08:59] LABS: APPEARANCE,URINE TURBID (CLEAR); BILIRUBIN,URINE NEGATIVE (NEGATIVE); GLUCOSE, URINE (UA) NEGATIVE (NEGATIVE); KETONES,URINE NEGATIVE (NEGATIVE); LEUKOCYTE ESTERASE ,URINE LARGE (NEGATIVE); NITRATE,URINE POSITIVE (NEGATIVE); OCCULT BLOOD,URINE SMALL (NEGATIVE); PROTEIN,URINE NEGATIVE (NEGATIVE)
[2018-11-09] MEDS ORDERED: MINERAL OIL 133 ML ENEMA PR ONE (09:15)
[2018-11-09] MEDS ORDERED: SODIUM PHOS/SODIUM BIPHOS 133 ML ENEMA PR ONE (09:15)
[2018-11-09 09:17] LABS: BACTERIA,URINE Many /HPF (None Seen); WBC,URINE >100 /HPF (0-5)
[2018-11-09] MEDS ORDERED: CefTRIAXone 1 GM/DEXTROSE 50 ML IV ONE (10:45)
[2018-11-09] MEDS ORDERED: SODIUM CHLORIDE 0.9% 1,000 ML IV ONE (10:45)
[2018-11-09] MEDS ORDERED: 0.9% SODIUM CHLORIDE 10 ML SYRINGE IVP PRN (11:30)
[2018-11-09] MEDS ORDERED: ONDANSETRON HCL 4 MG/2 ML VIAL IVP PRN (11:30)
[2018-11-09] MEDS ORDERED: ACETAMINOPHEN 325 MG TABLET PO PRN (11:30)
[2018-11-09] MEDS ORDERED: APIX2.5T GT (12:54)
[2018-11-09] MEDS ORDERED: FURO40 GT (12:54)
[2018-11-09] MEDS ORDERED: METO-408 PO (12:54)
[2018-11-09] MEDS ORDERED: METF-960 PO (12:56)
[2018-11-09] MEDS ORDERED: METO25XL GT (13:39)
[2018-11-09 16:40] VITALS: BP 105/52
[2018-11-09] MEDS ORDERED: MAGNESIUM HYDROXIDE SUSPENSION 30 ML UDCUP PO PRN (17:45)
[2018-11-09] MEDS ORDERED: BISACODYL 10 MG RECTAL RECTAL SUPPOSITORY PR PRN (17:45)
[2018-11-09] MEDS ORDERED: DEXTROSE 50%-WATER 25 GM/50 ML SYRINGE IVP PRN (17:45)
[2018-11-09] MEDS ORDERED: MAGNESIUM HYDROXIDE SUSPENSION 30 ML UDCUP GT PRN (18:15)
[2018-11-09] MEDS ORDERED: INSULIN LISPRO 100 UNITS/ML SQ PRN (18:15)
[2018-11-09] MEDS ORDERED: SODIUM CHLORIDE 0.9% 500 ML IV ONE (18:34)
[2018-11-09] MEDS: AZITHROMYCIN 500 MG/NS 250 ML IV SCH (18:41)
[2018-11-09] MEDS: ONDANSETRON HCL 4 MG TABLET PO SCH ×2 (18:48→23:15)
[2018-11-09 19:50] VITALS: BP 122/72
[2018-11-09] MEDS ORDERED: DEXTROSE 5%-0.45% SODIUM CHL 1,000 ML IV ONE (20:45)
[2018-11-09] MEDS: METOPROLOL TARTRATE 25 MG TABLET GT SCH (21:34)
[2018-11-09] MEDS: CARBOXYMETHYLCELLULOSE SODIUM 0.4 ML OPHTHALMIC SOLUTION [PF] OU SCH (21:34)
[2018-11-09] MEDS: GABAPENTIN 300 MG CAPSULE GT SCH (21:34)
[2018-11-09] MEDS: APIXABAN 2.5 MG TABLET GT SCH (21:34)
[2018-11-09] MEDS: ACETAMINOPHEN 650 MG/20.3 ML SOLUTION UDCUP GT PRN (23:06)
[2018-11-09] MEDS: IPRATROPIUM BROMIDE 0.5 MG/2.5 ML NEB SOLUTION NEB SCH (23:15)
[2018-11-09] MEDS: ALBUTEROL SULFATE 2.5 MG/0.5 ML NEB SOLUTION NEB SCH (23:15)
[2018-11-09 23:35] VITALS: BP 100/61
[2018-11-10] MEDS: IPRATROPIUM BROMIDE 0.5 MG/2.5 ML NEB SOLUTION NEB SCH ×4 (02:22→19:57)
[2018-11-10] MEDS: ALBUTEROL SULFATE 2.5 MG/0.5 ML NEB SOLUTION NEB SCH ×4 (02:22→19:57)
[2018-11-10 03:50] VITALS: BP 107/60
[2018-11-10 04:34] LABS: GLUCOMETER DEV NAME(LOC) 4E.2; GLUCOSE,POINT OF CARE 97 MG/DL (70-110)
[2018-11-10] MEDS: ACETAMINOPHEN 650 MG/20.3 ML SOLUTION UDCUP GT PRN (04:38)
[2018-11-10 06:18] LABS: BASOPHILS % (AUTO) 0.7 % (0.0-2.0); EOSINOPHILS % (AUTO) 3.2 % (1.0-6.0); HEMATOCRIT 35.6 % (36-46); LYMPHOCYTES # (AUTO) 1.3 K/uL (1.0-4.8); LYMPHOCYTES % (AUTO) 19.4 % (22.0-44.0); MEAN CORPUSCULAR HEMOGLOBIN 24.5 pg (26.0-34.0); MEAN CORPUSCULAR HGB CONC 30.8 G/dL (31.0-37.0); MEAN CORPUSCULAR VOLUME 80 fL (80-100); MONOCYTES # (AUTO) 0.6 K/uL (0.1-1.0); MONOCYTES % (AUTO) 9.7 % (2.0-9.0); NEUTROPHILS # (AUTO) 4.5 K/uL (1.8-7.7); PLATELET COUNT (AUTO) 251 K/uL (150-450); RED BLOOD CELL COUNT(AUTO) 4.47 MIL/uL (4.00-5.20); RED CELL DISTRIBUTION WIDTH 19.3 % (11.5-14.5)
[2018-11-10 06:30] LABS: HEMOGLOBIN A1C 5.9 % (4.5-6.2)
[2018-11-10 06:39] LABS: ALANINE AMINOTRANSFERASE 20 U/L (12-78); ALBUMIN 2.4 g/dL (3.4-5.0); ALKALINE PHOSPHATASE 128 U/L (46-116); ANION GAP 10 mmol/L (8-16); ASPARTATE AMINOTRANSFERASE 18 U/L (15-37); BILIRUBIN,TOTAL 0.4 mg/dL (0.1-1.0); CALCIUM, TOTAL 8.5 mg/dL (8.8-10.5); CARBON DIOXIDE 26 mmol/L (22-29); CHLORIDE 103 mmol/L (98-107); CHOL/HDL RATIO 2.4 (3.9-5.7); CHOLESTEROL 106 mg/dL (131-200); CREATINE KINASE, TOTAL ONLY 21 U/L (26-192); CREATININE 0.59 mg/dL (0.60-1.30); GLUCOSE,RANDOM 134 mg/dL (70-110); HDL CHOLESTEROL 44 mg/dL (40-60); LDL CHOL (CALC.) 51 mg/dL (0-130); POTASSIUM 3.4 mmol/L (3.5-5.1); SODIUM SERUM 139 mmol/L (136-145); TOTAL PROTEIN, SERUM 5.7 g/dL (6.4-8.2); TRIGLYCERIDES 56 mg/dL (15-150); UREA NITROGEN, BLOOD 8 mg/dL (7-18)
[2018-11-10 06:46] LABS: GLOMERULAR FILTR. RATE CALC > 60 mL/min (>60)
[2018-11-10] MEDS: LEVOTHYROXINE SODIUM 50 MCG TABLET GT SCH (07:00)
[2018-11-10 07:14] LABS: GLUCOMETER DEV NAME(LOC) 4E.2; GLUCOSE,POINT OF CARE 136 MG/DL (70-110)
[2018-11-10 08:05] VITALS: BP 105/60
[2018-11-10] MEDS: PANTOPRAZOLE SODIUM 40 MG DR TABLET PO SCH (08:37)
[2018-11-10] MEDS: GABAPENTIN 300 MG CAPSULE GT SCH ×2 (08:37→21:35)
[2018-11-10] MEDS: FLUTICASONE PROPIONATE 50 MCG/SPRAY 16 GM NASAL SPRAY NASAL SCH (08:38)
[2018-11-10] MEDS: ONDANSETRON HCL 4 MG TABLET PO SCH ×2 (08:38→19:04)
[2018-11-10] MEDS: FUROSEMIDE 40 MG/5 ML SOLUTION UDCUP GT SCH (08:38)
[2018-11-10] MEDS: METOPROLOL TARTRATE 25 MG TABLET GT SCH ×2 (08:38→21:36)
[2018-11-10] MEDS: APIXABAN 2.5 MG TABLET GT SCH ×2 (08:38→21:00)
[2018-11-10] MEDS: CARBOXYMETHYLCELLULOSE SODIUM 0.4 ML OPHTHALMIC SOLUTION [PF] OU SCH ×2 (08:39→21:35)
[2018-11-10 11:43] VITALS: BP 93/57
[2018-11-10] MEDS: INSULIN REGULAR, HUMAN 100 UNITS/ML SQ PRN ×2 (11:58→19:12)
[2018-11-10] MEDS: CefTRIAXone 1 GM/DEXTROSE 50 ML IV SCH (12:17)
[2018-11-10] MEDS ORDERED: MORPHINE SULFATE 2 MG/ML SYRINGE IVP PRN (12:45)
[2018-11-10] MEDS ORDERED: POTASSIUM CHL 10 MEQ/WATER 50 ML IV PRN (15:00)
[2018-11-10] MEDS ORDERED: POTASSIUM CHLORIDE 20 MEQ ER TABLET PO PRN (15:00)
[2018-11-10] MEDS ORDERED: SODIUM CHLORIDE 0.9% 1,000 ML IV ONE ×2 (15:54→16:00)
[2018-11-10 16:03] VITALS: BP 94/58
[2018-11-10 17:30] LABS: GLUCOMETER DEV NAME(LOC) 4E.2; GLUCOSE,POINT OF CARE 140 MG/DL (70-110)
[2018-11-10] MEDS: POLYETHYLENE GLYCOL 3350 17 GM PACKET GT SCH (19:04)
[2018-11-10] MEDS: AZITHROMYCIN 500 MG/NS 250 ML IV SCH (19:04)
[2018-11-10 19:24] LABS: GLUCOMETER DEV NAME(LOC) 4E.2; GLUCOSE,POINT OF CARE 109 MG/DL (70-110)
[2018-11-10 19:50] VITALS: BP 102/61
[2018-11-10] MEDS: IBUPROFEN 100 MG/5 ML SUSPENSION UDCUP GT PRN (22:40)
[2018-11-10 23:14] LABS: GLUCOMETER DEV NAME(LOC) 4E.2; GLUCOSE,POINT OF CARE 92 MG/DL (70-110)
[2018-11-10 23:50] VITALS: BP 91/56
[2018-11-11] MEDS: ONDANSETRON HCL 4 MG TABLET PO SCH ×3 (00:02→16:50)
[2018-11-11] MEDS: ALBUTEROL SULFATE 2.5 MG/0.5 ML NEB SOLUTION NEB SCH ×4 (01:19→20:15)
[2018-11-11] MEDS: IPRATROPIUM BROMIDE 0.5 MG/2.5 ML NEB SOLUTION NEB SCH ×4 (01:19→20:15)
[2018-11-11 03:55] VITALS: BP 96/49
[2018-11-11] MEDS: LEVOTHYROXINE SODIUM 50 MCG TABLET GT SCH (05:40)
[2018-11-11 06:35] LABS: GLUCOMETER DEV NAME(LOC) 4E.2; GLUCOSE,POINT OF CARE 94 MG/DL (70-110)
[2018-11-11 08:00] VITALS: BP 109/63
[2018-11-11] MEDS: GABAPENTIN 300 MG CAPSULE GT SCH ×2 (08:34→20:23)
[2018-11-11] MEDS: IBUPROFEN 100 MG/5 ML SUSPENSION UDCUP GT PRN (08:35)
[2018-11-11] MEDS: FUROSEMIDE 40 MG/5 ML SOLUTION UDCUP GT SCH (08:59)
[2018-11-11] MEDS: POLYETHYLENE GLYCOL 3350 17 GM PACKET GT SCH (08:59)
[2018-11-11] MEDS: APIXABAN 2.5 MG TABLET GT SCH ×2 (09:00→20:23)
[2018-11-11] MEDS: METOPROLOL TARTRATE 25 MG TABLET GT SCH ×3 (09:00→20:51)
[2018-11-11] MEDS: FLUTICASONE PROPIONATE 50 MCG/SPRAY 16 GM NASAL SPRAY NASAL SCH (09:07)
[2018-11-11] MEDS: CARBOXYMETHYLCELLULOSE SODIUM 0.4 ML OPHTHALMIC SOLUTION [PF] OU SCH ×2 (09:07→20:23)
[2018-11-11] MEDS: PANTOPRAZOLE SODIUM 40 MG DR TABLET PO SCH (09:08)
[2018-11-11] MEDS ORDERED: LIDOCAINE/PF 1% 5 ML VIAL ONE ×2 (09:34→10:51)
[2018-11-11] MEDS ORDERED: DIATRIZOATE MEGLU/SOD 660/100 MG/ML 120 ML BOTTLE ONE (09:47)
[2018-11-11] MEDS ORDERED: LIDOCAINE/PF 1% 30 ML VIAL ONE (10:51)
[2018-11-11] MEDS ORDERED: MIDAZOLAM HCL 2 MG/2 ML VIAL ONE (10:52)
[2018-11-11] MEDS ORDERED: FentaNYL CITRATE-PF 100 MCG/2 ML VIAL ONE (10:52)
[2018-11-11] MEDS: INSULIN REGULAR, HUMAN 100 UNITS/ML SQ PRN ×2 (12:28→16:52)
[2018-11-11] MEDS: CefTRIAXone 1 GM/DEXTROSE 50 ML IV SCH (12:33)
[2018-11-11 16:32] VITALS: BP 95/56
[2018-11-11 17:15] LABS: GLUCOMETER DEV NAME(LOC) 4E.2; GLUCOSE,POINT OF CARE 97 MG/DL (70-110)
[2018-11-11 17:15] LABS: GLUCOMETER DEV NAME(LOC) 4E.2; GLUCOSE,POINT OF CARE 101 MG/DL (70-110)
[2018-11-11] MEDS: MetroNIDAZOLE 500 MG/NACL 100 ML IV SCH (17:43)
[2018-11-11] MEDS: ACETAMINOPHEN 650 MG/20.3 ML SOLUTION UDCUP GT PRN (17:43)
[2018-11-11] MEDS: AZITHROMYCIN 500 MG/NS 250 ML IV SCH (18:56)
[2018-11-11 19:35] VITALS: BP 90/50
[2018-11-11 21:10] LABS: GLUCOMETER DEV NAME(LOC) 4E.2; GLUCOSE,POINT OF CARE 117 MG/DL (70-110)
[2018-11-11 23:37] VITALS: BP 82/45
[2018-11-11 23:50] VITALS: BP 81/55
[2018-11-12] VITALS (9 sets, daily range): BP systolic 78–100; BP diastolic 42–73
[2018-11-12] MEDS ORDERED: SODIUM CHLORIDE 0.9% 500 ML IV SCH (01:00)
[2018-11-12] MEDS: SODIUM CHLORIDE 0.9% 500 ML IV SCH ×2 (01:01→02:00)
[2018-11-12] MEDS: ONDANSETRON HCL 4 MG TABLET PO SCH ×4 (01:19→23:38)
[2018-11-12] MEDS: ACETAMINOPHEN 650 MG/20.3 ML SOLUTION UDCUP GT PRN ×2 (01:26→05:55)
[2018-11-12] MEDS: MetroNIDAZOLE 500 MG/NACL 100 ML IV SCH ×3 (02:20→17:28)
[2018-11-12] MEDS: ALBUTEROL SULFATE 2.5 MG/0.5 ML NEB SOLUTION NEB SCH ×4 (02:23→20:44)
[2018-11-12] MEDS: IPRATROPIUM BROMIDE 0.5 MG/2.5 ML NEB SOLUTION NEB SCH ×4 (02:23→20:44)
[2018-11-12] MEDS: LEVOTHYROXINE SODIUM 50 MCG TABLET GT SCH (05:55)
[2018-11-12 06:54] LABS: GLUCOMETER DEV NAME(LOC) 4E.2; GLUCOSE,POINT OF CARE 134 MG/DL (70-110)
[2018-11-12] MEDS: METOPROLOL TARTRATE 25 MG TABLET GT SCH ×2 (09:00→20:49)
[2018-11-12] MEDS: FUROSEMIDE 40 MG/5 ML SOLUTION UDCUP GT SCH (09:00)
[2018-11-12] MEDS: APIXABAN 2.5 MG TABLET GT SCH ×2 (09:10→20:49)
[2018-11-12] MEDS: PANTOPRAZOLE SODIUM 40 MG DR TABLET PO SCH (09:10)
[2018-11-12] MEDS: GABAPENTIN 300 MG CAPSULE GT SCH ×3 (09:10→20:49)
[2018-11-12] MEDS: FLUTICASONE PROPIONATE 50 MCG/SPRAY 16 GM NASAL SPRAY NASAL SCH (09:11)
[2018-11-12] MEDS: POLYETHYLENE GLYCOL 3350 17 GM PACKET GT SCH (09:11)
[2018-11-12] MEDS: CARBOXYMETHYLCELLULOSE SODIUM 0.4 ML OPHTHALMIC SOLUTION [PF] OU SCH ×2 (09:12→20:49)
[2018-11-12] MEDS: CefTRIAXone 1 GM/DEXTROSE 50 ML IV SCH (10:55)
[2018-11-12 15:39] LABS: GLUCOMETER DEV NAME(LOC) 4E.2; GLUCOSE,POINT OF CARE 107 MG/DL (70-110)
[2018-11-12] MEDS: LACTOBACILLUS ACIDOPHILUS/BULGARICUS GRANULES PACKET PO SCH ×2 (17:28→23:38)
[2018-11-12] MEDS: IBUPROFEN 100 MG/5 ML SUSPENSION UDCUP GT PRN (17:29)
[2018-11-12 17:35] LABS: GLUCOMETER DEV NAME(LOC) 4E.2; GLUCOSE,POINT OF CARE 103 MG/DL (70-110)
[2018-11-12] MEDS: AZITHROMYCIN 500 MG/NS 250 ML IV SCH (18:38)
[2018-11-12 21:05] LABS: GLUCOMETER DEV NAME(LOC) 4E.2; GLUCOSE,POINT OF CARE 104 MG/DL (70-110)
[2018-11-13] VITALS (7 sets, daily range): BP systolic 92–109; BP diastolic 54–65
[2018-11-13] MEDS: MetroNIDAZOLE 500 MG/NACL 100 ML IV SCH ×3 (01:33→17:39)
[2018-11-13] MEDS: IPRATROPIUM BROMIDE 0.5 MG/2.5 ML NEB SOLUTION NEB SCH ×3 (02:17→13:52)
[2018-11-13] MEDS: ALBUTEROL SULFATE 2.5 MG/0.5 ML NEB SOLUTION NEB SCH ×3 (02:17→13:52)
[2018-11-13] MEDS: LEVOTHYROXINE SODIUM 50 MCG TABLET GT SCH (06:40)
[2018-11-13] MEDS: LACTOBACILLUS ACIDOPHILUS/BULGARICUS GRANULES PACKET PO SCH ×4 (06:40→23:57)
[2018-11-13 07:09] LABS: GLUCOMETER DEV NAME(LOC) 4E.2; GLUCOSE,POINT OF CARE 106 MG/DL (70-110)
[2018-11-13] MEDS: ONDANSETRON HCL 4 MG TABLET PO SCH ×2 (08:09→15:38)
[2018-11-13] MEDS: APIXABAN 2.5 MG TABLET GT SCH ×2 (08:09→20:12)
[2018-11-13] MEDS: FUROSEMIDE 40 MG/5 ML SOLUTION UDCUP GT SCH (08:10)
[2018-11-13] MEDS: POLYETHYLENE GLYCOL 3350 17 GM PACKET GT SCH (08:10)
[2018-11-13] MEDS: PANTOPRAZOLE SODIUM 40 MG DR TABLET PO SCH (08:10)
[2018-11-13] MEDS: CARBOXYMETHYLCELLULOSE SODIUM 0.4 ML OPHTHALMIC SOLUTION [PF] OU SCH ×2 (08:10→21:00)
[2018-11-13] MEDS: FLUTICASONE PROPIONATE 50 MCG/SPRAY 16 GM NASAL SPRAY NASAL SCH (08:10)
[2018-11-13] MEDS: GABAPENTIN 300 MG CAPSULE GT SCH ×3 (08:10→20:12)
[2018-11-13] MEDS: METOPROLOL TARTRATE 25 MG TABLET GT SCH ×2 (08:11→21:00)
[2018-11-13] MEDS: CETIRIZINE HCL 10 MG TABLET PO PRN (11:27)
[2018-11-13] MEDS: CefTRIAXone 1 GM/DEXTROSE 50 ML IV SCH (11:27)
[2018-11-13] MEDS: AZITHROMYCIN 500 MG/NS 250 ML IV SCH (17:40)
[2018-11-13 18:05] LABS: GLUCOMETER DEV NAME(LOC) 4E.2; GLUCOSE,POINT OF CARE 103 MG/DL (70-110)
[2018-11-13 18:05] LABS: GLUCOMETER DEV NAME(LOC) 4E.2; GLUCOSE,POINT OF CARE 118 MG/DL (70-110)
[2018-11-13] MEDS: IBUPROFEN 100 MG/5 ML SUSPENSION UDCUP GT PRN (20:12)
[2018-11-13] MEDS ORDERED: SODIUM CHLORIDE 0.9% 250 ML IV ONE (23:56)
[2018-11-14] VITALS (7 sets, daily range): BP systolic 99–134; BP diastolic 58–78
[2018-11-14] MEDS: ONDANSETRON HCL 4 MG TABLET PO SCH ×3 (00:25→17:11)
[2018-11-14 01:34] LABS: GLUCOMETER DEV NAME(LOC) 4E.2; GLUCOSE,POINT OF CARE 117 MG/DL (70-110)
[2018-11-14] MEDS: IPRATROPIUM BROMIDE 0.5 MG/2.5 ML NEB SOLUTION NEB SCH ×5 (02:18→19:28)
[2018-11-14] MEDS: ALBUTEROL SULFATE 2.5 MG/0.5 ML NEB SOLUTION NEB SCH ×5 (02:19→19:28)
[2018-11-14] MEDS: MetroNIDAZOLE 500 MG/NACL 100 ML IV SCH ×3 (03:01→17:11)
[2018-11-14 06:19] LABS: BASOPHILS % (AUTO) 0.6 % (0.0-2.0); EOSINOPHILS % (AUTO) 10.7 % (1.0-6.0); HEMATOCRIT 34.2 % (36-46); HEMOGLOBIN 10.7 g/dL (12.0-16.0); LYMPHOCYTES # (AUTO) 1.1 K/uL (1.0-4.8); LYMPHOCYTES % (AUTO) 17.8 % (22.0-44.0); MEAN CORPUSCULAR HEMOGLOBIN 25.1 pg (26.0-34.0); MEAN CORPUSCULAR HGB CONC 31.3 G/dL (31.0-37.0); MEAN CORPUSCULAR VOLUME 80 fL (80-100); MONOCYTES # (AUTO) 0.5 K/uL (0.1-1.0); MONOCYTES % (AUTO) 7.9 % (2.0-9.0); NEUTROPHILS # (AUTO) 3.8 K/uL (1.8-7.7); PLATELET COUNT (AUTO) 276 K/uL (150-450); RED BLOOD CELL COUNT(AUTO) 4.26 MIL/uL (4.00-5.20)
[2018-11-14 06:38] LABS: ALANINE AMINOTRANSFERASE 18 U/L (12-78); ALBUMIN 2.1 g/dL (3.4-5.0); ALKALINE PHOSPHATASE 152 U/L (46-116); ANION GAP 7 mmol/L (8-16); ASPARTATE AMINOTRANSFERASE 22 U/L (15-37); BILIRUBIN,TOTAL 0.1 mg/dL (0.1-1.0); CALCIUM, TOTAL 8.6 mg/dL (8.8-10.5); CARBON DIOXIDE 26 mmol/L (22-29); CHLORIDE 107 mmol/L (98-107); CREATININE 0.56 mg/dL (0.60-1.30); GLUCOSE,RANDOM 118 mg/dL (70-110); POTASSIUM 4.1 mmol/L (3.5-5.1); SODIUM SERUM 140 mmol/L (136-145); TOTAL PROTEIN, SERUM 5.4 g/dL (6.4-8.2); UREA NITROGEN, BLOOD 14 mg/dL (7-18)
[2018-11-14 06:40] LABS: GLUCOMETER DEV NAME(LOC) 4E.2; GLUCOSE,POINT OF CARE 119 MG/DL (70-110)
[2018-11-14] MEDS: LEVOTHYROXINE SODIUM 50 MCG TABLET GT SCH (06:42)
[2018-11-14 06:44] LABS: GLOMERULAR FILTR. RATE CALC > 60 mL/min (>60)
[2018-11-14] MEDS: LACTOBACILLUS ACIDOPHILUS/BULGARICUS GRANULES PACKET PO SCH ×3 (06:50→18:00)
[2018-11-14] MEDS: POLYETHYLENE GLYCOL 3350 17 GM PACKET GT SCH (07:52)
[2018-11-14] MEDS: METOPROLOL TARTRATE 25 MG TABLET GT SCH ×2 (09:00→21:38)
[2018-11-14] MEDS: FUROSEMIDE 40 MG/5 ML SOLUTION UDCUP GT SCH (09:00)
[2018-11-14] MEDS: GABAPENTIN 300 MG CAPSULE GT SCH ×3 (09:00→21:38)
[2018-11-14] MEDS: APIXABAN 2.5 MG TABLET GT SCH ×2 (09:01→21:38)
[2018-11-14] MEDS: PANTOPRAZOLE SODIUM 40 MG DR TABLET PO SCH (09:01)
[2018-11-14] MEDS: CETIRIZINE HCL 10 MG TABLET PO PRN (09:05)
[2018-11-14] MEDS: FLUTICASONE PROPIONATE 50 MCG/SPRAY 16 GM NASAL SPRAY NASAL SCH (09:05)
[2018-11-14] MEDS: CARBOXYMETHYLCELLULOSE SODIUM 0.4 ML OPHTHALMIC SOLUTION [PF] OU SCH ×2 (09:06→21:43)
[2018-11-14] MEDS: CefTRIAXone 1 GM/DEXTROSE 50 ML IV SCH (12:50)
[2018-11-14] MEDS: LOPERAMIDE HCL 2 MG/15 ML SUSPENSION UDCUP PEG SCH ×2 (17:11→21:39)
[2018-11-14] MEDS: AZITHROMYCIN 500 MG/NS 250 ML IV SCH (18:41)
[2018-11-14 20:24] LABS: GLUCOMETER DEV NAME(LOC) 4E.2; GLUCOSE,POINT OF CARE 105 MG/DL (70-110)
[2018-11-14 20:24] LABS: GLUCOMETER DEV NAME(LOC) 4E.2; GLUCOSE,POINT OF CARE 115 MG/DL (70-110)
[2018-11-14] MEDS: ACETAMINOPHEN 650 MG/20.3 ML SOLUTION UDCUP GT PRN (21:43)
[2018-11-14] MEDS: INSULIN REGULAR, HUMAN 100 UNITS/ML SQ PRN (21:46)
[2018-11-14] MEDS: ALBUTEROL SULFATE 2.5 MG/0.5 ML NEB SOLUTION NEB PRN (21:50)
[2018-11-14 23:10] LABS: GLUCOMETER DEV NAME(LOC) 4E.2; GLUCOSE,POINT OF CARE 109 MG/DL (70-110)
[2018-11-15 00:13] VITALS: BP 93/51
[2018-11-15] MEDS: ONDANSETRON HCL 4 MG TABLET PO SCH ×3 (00:34→17:33)
[2018-11-15] MEDS: MetroNIDAZOLE 500 MG/NACL 100 ML IV SCH ×3 (02:02→16:06)
[2018-11-15] MEDS: ALBUTEROL SULFATE 2.5 MG/0.5 ML NEB SOLUTION NEB SCH ×4 (02:05→19:40)
[2018-11-15] MEDS: IPRATROPIUM BROMIDE 0.5 MG/2.5 ML NEB SOLUTION NEB SCH ×4 (02:06→19:40)
[2018-11-15] MEDS: LACTOBACILLUS ACIDOPHILUS/BULGARICUS GRANULES PACKET PO SCH ×4 (05:56→18:00)
[2018-11-15] MEDS: ACETAMINOPHEN 650 MG/20.3 ML SOLUTION UDCUP GT PRN (05:56)
[2018-11-15] MEDS: LEVOTHYROXINE SODIUM 50 MCG TABLET GT SCH (05:56)
[2018-11-15] MEDS: INSULIN REGULAR, HUMAN 100 UNITS/ML SQ PRN (06:07)
[2018-11-15] MEDS: ALBUTEROL SULFATE 2.5 MG/0.5 ML NEB SOLUTION NEB PRN (06:53)
[2018-11-15] MEDS: GABAPENTIN 300 MG CAPSULE GT SCH ×3 (08:20→20:48)
[2018-11-15 08:22] VITALS: BP 106/68
[2018-11-15] MEDS: FLUTICASONE PROPIONATE 50 MCG/SPRAY 16 GM NASAL SPRAY NASAL SCH (08:22)
[2018-11-15] MEDS: FUROSEMIDE 40 MG/5 ML SOLUTION UDCUP GT SCH (08:22)
[2018-11-15] MEDS: PANTOPRAZOLE SODIUM 40 MG DR TABLET PO SCH (08:23)
[2018-11-15] MEDS: CARBOXYMETHYLCELLULOSE SODIUM 0.4 ML OPHTHALMIC SOLUTION [PF] OU SCH ×2 (08:23→20:48)
[2018-11-15] MEDS: APIXABAN 2.5 MG TABLET GT SCH ×2 (08:25→20:48)
[2018-11-15] MEDS: LOPERAMIDE HCL 2 MG/15 ML SUSPENSION UDCUP PEG SCH ×4 (08:26→20:48)
[2018-11-15] MEDS: POLYETHYLENE GLYCOL 3350 17 GM PACKET GT SCH (08:26)
[2018-11-15] MEDS: METOPROLOL TARTRATE 25 MG TABLET GT SCH ×2 (08:26→20:48)
[2018-11-15] MEDS: CETIRIZINE HCL 10 MG TABLET PO PRN (08:29)
[2018-11-15] MEDS: CefTRIAXone 1 GM/DEXTROSE 50 ML IV SCH (10:18)
[2018-11-15 12:10] VITALS: BP 112/52
[2018-11-15 12:20] LABS: GLUCOMETER DEV NAME(LOC) 4E.2; GLUCOSE,POINT OF CARE 120 MG/DL (70-110)
[2018-11-15 12:20] LABS: GLUCOMETER DEV NAME(LOC) 4E.2; GLUCOSE,POINT OF CARE 123 MG/DL (70-110)
[2018-11-15 15:59] VITALS: BP 136/72
[2018-11-15] MEDS: CHOLESTYRAMINE/ASPARTAME 4 GM POWDER PACKET PO SCH (16:05)
[2018-11-15 17:50] LABS: GLUCOMETER DEV NAME(LOC) 4E.2; GLUCOSE,POINT OF CARE 102 MG/DL (70-110)
[2018-11-15] MEDS: AZITHROMYCIN 500 MG/NS 250 ML IV SCH (18:27)
[2018-11-15 19:55] VITALS: BP 110/60
[2018-11-16] VITALS (7 sets, daily range): BP systolic 98–120; BP diastolic 54–72
[2018-11-16] MEDS: ONDANSETRON HCL 4 MG TABLET PO SCH ×3 (00:35→17:10)
[2018-11-16] MEDS: IPRATROPIUM BROMIDE 0.5 MG/2.5 ML NEB SOLUTION NEB SCH ×4 (01:27→19:02)
[2018-11-16] MEDS: ALBUTEROL SULFATE 2.5 MG/0.5 ML NEB SOLUTION NEB SCH ×4 (01:27→19:02)
[2018-11-16] MEDS: MetroNIDAZOLE 500 MG/NACL 100 ML IV SCH ×3 (01:39→17:36)
[2018-11-16 02:14] LABS: GLUCOMETER DEV NAME(LOC) 4E.2; GLUCOSE,POINT OF CARE 104 MG/DL (70-110)
[2018-11-16] MEDS: LACTOBACILLUS ACIDOPHILUS/BULGARICUS GRANULES PACKET PO SCH ×4 (05:28→18:00)
[2018-11-16] MEDS: ALBUTEROL SULFATE 2.5 MG/0.5 ML NEB SOLUTION NEB PRN (05:36)
[2018-11-16] MEDS: LEVOTHYROXINE SODIUM 50 MCG TABLET GT SCH (05:38)
[2018-11-16] MEDS: CHOLESTYRAMINE/ASPARTAME 4 GM POWDER PACKET PO SCH ×3 (05:38→17:10)
[2018-11-16 06:26] LABS: GLUCOMETER DEV NAME(LOC) 4E.2; GLUCOSE,POINT OF CARE 120 MG/DL (70-110)
[2018-11-16] MEDS: PANTOPRAZOLE SODIUM 40 MG DR TABLET PO SCH (08:45)
[2018-11-16] MEDS: METOPROLOL TARTRATE 25 MG TABLET GT SCH ×2 (08:46→21:00)
[2018-11-16] MEDS: FUROSEMIDE 40 MG/5 ML SOLUTION UDCUP GT SCH ×2 (08:46→09:00)
[2018-11-16] MEDS: POLYETHYLENE GLYCOL 3350 17 GM PACKET GT SCH (08:46)
[2018-11-16] MEDS: FLUTICASONE PROPIONATE 50 MCG/SPRAY 16 GM NASAL SPRAY NASAL SCH (08:46)
[2018-11-16] MEDS: GABAPENTIN 300 MG CAPSULE GT SCH ×3 (08:46→21:01)
[2018-11-16] MEDS: APIXABAN 2.5 MG TABLET GT SCH ×2 (08:48→21:01)
[2018-11-16] MEDS: CARBOXYMETHYLCELLULOSE SODIUM 0.4 ML OPHTHALMIC SOLUTION [PF] OU SCH ×2 (08:49→21:02)
[2018-11-16] MEDS: LOPERAMIDE HCL 2 MG/15 ML SUSPENSION UDCUP PEG SCH ×3 (09:50→21:01)
[2018-11-16] MEDS: CefTRIAXone 1 GM/DEXTROSE 50 ML IV SCH (11:07)
[2018-11-16 13:15] LABS: GLUCOMETER DEV NAME(LOC) 4E.2; GLUCOSE,POINT OF CARE 134 MG/DL (70-110)
[2018-11-16] MEDS: AZITHROMYCIN 500 MG/NS 250 ML IV SCH (18:46)
[2018-11-16 20:16] LABS: GLUCOMETER DEV NAME(LOC) 4E.2; GLUCOSE,POINT OF CARE 98 MG/DL (70-110)
[2018-11-17] MEDS: ONDANSETRON HCL 4 MG TABLET PO SCH ×3 (00:12→16:51)
[2018-11-17] MEDS: LACTOBACILLUS ACIDOPHILUS/BULGARICUS GRANULES PACKET PO SCH ×3 (00:12→12:00)
[2018-11-17] MEDS: IPRATROPIUM BROMIDE 0.5 MG/2.5 ML NEB SOLUTION NEB SCH ×4 (01:02→20:24)
[2018-11-17] MEDS: ALBUTEROL SULFATE 2.5 MG/0.5 ML NEB SOLUTION NEB SCH ×4 (01:02→20:24)
[2018-11-17 01:39] LABS: GLUCOMETER DEV NAME(LOC) 4E.2; GLUCOSE,POINT OF CARE 115 MG/DL (70-110)
[2018-11-17] MEDS: MetroNIDAZOLE 500 MG/NACL 100 ML IV SCH ×3 (02:12→17:12)
[2018-11-17] MEDS ORDERED: SODIUM CHLORIDE 0.9% 500 ML IV ONE (02:15)
[2018-11-17 03:23] VITALS: BP 111/68
[2018-11-17] MEDS: ALBUTEROL SULFATE 2.5 MG/0.5 ML NEB SOLUTION NEB PRN (04:15)
[2018-11-17] MEDS: LEVOTHYROXINE SODIUM 50 MCG TABLET GT SCH (05:39)
[2018-11-17] MEDS: CHOLESTYRAMINE/ASPARTAME 4 GM POWDER PACKET PO SCH ×3 (06:31→16:51)
[2018-11-17 07:30] VITALS: BP 121/77
[2018-11-17] MEDS: CARBOXYMETHYLCELLULOSE SODIUM 0.4 ML OPHTHALMIC SOLUTION [PF] OU SCH ×2 (08:16→20:12)
[2018-11-17] MEDS: FLUTICASONE PROPIONATE 50 MCG/SPRAY 16 GM NASAL SPRAY NASAL SCH (08:17)
[2018-11-17] MEDS: PANTOPRAZOLE SODIUM 40 MG DR TABLET PO SCH (08:17)
[2018-11-17] MEDS: APIXABAN 2.5 MG TABLET GT SCH ×2 (08:18→20:12)
[2018-11-17] MEDS: POLYETHYLENE GLYCOL 3350 17 GM PACKET GT SCH (08:18)
[2018-11-17] MEDS: FUROSEMIDE 40 MG/5 ML SOLUTION UDCUP GT SCH (08:18)
[2018-11-17] MEDS: LOPERAMIDE HCL 2 MG/15 ML SUSPENSION UDCUP PEG SCH ×3 (08:18→20:12)
[2018-11-17] MEDS: GABAPENTIN 300 MG CAPSULE GT SCH ×3 (08:18→20:13)
[2018-11-17] MEDS: METOPROLOL TARTRATE 25 MG TABLET GT SCH ×2 (08:19→21:00)
[2018-11-17 10:09] LABS: GLUCOMETER DEV NAME(LOC) 4E.2; GLUCOSE,POINT OF CARE 123 MG/DL (70-110)
[2018-11-17] MEDS: CefTRIAXone 1 GM/DEXTROSE 50 ML IV SCH (10:44)
[2018-11-17 11:20] VITALS: BP 124/79
[2018-11-17 14:54] LABS: GLUCOMETER DEV NAME(LOC) 4E.2; GLUCOSE,POINT OF CARE 137 MG/DL (70-110)
[2018-11-17 15:21] VITALS: BP 118/66
[2018-11-17 18:55] LABS: GLUCOMETER DEV NAME(LOC) 4E.2; GLUCOSE,POINT OF CARE 116 MG/DL (70-110)
[2018-11-17] MEDS: AZITHROMYCIN 500 MG/NS 250 ML IV SCH (19:00)
[2018-11-17 19:54] VITALS: BP 102/67
[2018-11-17] MEDS: LACTOBAC ACID/BULG/BIFID/THERM TABLET PEG SCH (20:13)
[2018-11-18 00:15] VITALS: BP 109/63
[2018-11-18] MEDS: ONDANSETRON HCL 4 MG TABLET PO SCH ×4 (00:22→23:42)
[2018-11-18] MEDS: ALBUTEROL SULFATE 2.5 MG/0.5 ML NEB SOLUTION NEB PRN ×3 (00:52→22:51)
[2018-11-18] MEDS ORDERED: FUROSEMIDE 20 MG/2 ML VIAL IVP ONE (01:15)
[2018-11-18 01:16] LABS: ABG A-A DIFF O2 86.3 mmHg (10-20.0); ABG BASE EXCESS 7.7 mmol/L (-2.0-3.0); ABG CARBOXYHEMOGLOBIN 0.4 % (0.0-1.5); ABG HCO3 30.3 mmol/L (22.0-26.0); ABG METHEMOGLOBIN 0.3 % (0.0-1.5); ABG OXYGEN CONTENT 15.8 mL/dL (15.0-23.0); ABG OXYGEN SATURATION 95.5 % (95.0-98.0); ABG OXYHEMOGLOBIN 94.8 % (94.0-100.0); ABG PCO2 52 mmHg (35-45); ABG PH 7.414 (7.35-7.450); ABG TOTAL HEMOGLOBIN 11.8 G/dL (12.0-18.0); PO2, ARTERIAL BG 81.4 mmHg (71.0-79.0); SOURCE, BLOOD GAS ARTERIAL
[2018-11-18 01:17] LABS: SITE, BLOOD GAS RT RADIAL
[2018-11-18 01:18] LABS: O2 DEVICE,BLOOD GAS CANNULA (ROOM AIR)
[2018-11-18] MEDS: ALBUTEROL SULFATE 2.5 MG/0.5 ML NEB SOLUTION NEB SCH ×4 (02:00→19:43)
[2018-11-18] MEDS: IPRATROPIUM BROMIDE 0.5 MG/2.5 ML NEB SOLUTION NEB SCH ×4 (02:00→19:42)
[2018-11-18] MEDS: MetroNIDAZOLE 500 MG/NACL 100 ML IV SCH ×3 (02:15→17:37)
[2018-11-18 02:24] LABS: GLUCOMETER DEV NAME(LOC) 4E.2; GLUCOSE,POINT OF CARE 118 MG/DL (70-110)
[2018-11-18 05:22] VITALS: BP 121/55
[2018-11-18 05:43] LABS: BASOPHILS % (AUTO) 0.4 % (0.0-2.0); EOSINOPHILS % (AUTO) 6.9 % (1.0-6.0); HEMATOCRIT 34.8 % (36-46); LYMPHOCYTES # (AUTO) 1.3 K/uL (1.0-4.8); MEAN CORPUSCULAR HGB CONC 31.5 G/dL (31.0-37.0); MEAN CORPUSCULAR VOLUME 80 fL (80-100); MONOCYTES # (AUTO) 0.6 K/uL (0.1-1.0); MONOCYTES % (AUTO) 7.5 % (2.0-9.0); NEUTROPHILS # (AUTO) 6.1 K/uL (1.8-7.7); NEUTROPHILS % (AUTO) 70.2 % (40.0-70.0); PLATELET COUNT (AUTO) 300 K/uL (150-450); RED BLOOD CELL COUNT(AUTO) 4.38 MIL/uL (4.00-5.20); RED CELL DISTRIBUTION WIDTH 18.9 % (11.5-14.5)
[2018-11-18] MEDS: LEVOTHYROXINE SODIUM 50 MCG TABLET GT SCH (05:53)
[2018-11-18] MEDS: CHOLESTYRAMINE/ASPARTAME 4 GM POWDER PACKET PO SCH ×3 (06:49→17:31)
[2018-11-18 07:12] LABS: ANION GAP 5 mmol/L (8-16); CALCIUM, TOTAL 9.1 mg/dL (8.8-10.5); CARBON DIOXIDE 32 mmol/L (22-29); CHLORIDE 101 mmol/L (98-107); CREATININE 0.54 mg/dL (0.60-1.30); GLUCOSE,RANDOM 118 mg/dL (70-110); POTASSIUM 4.5 mmol/L (3.5-5.1); SODIUM SERUM 138 mmol/L (136-145); UREA NITROGEN, BLOOD 11 mg/dL (7-18)
[2018-11-18 07:18] LABS: GLOMERULAR FILTR. RATE CALC > 60 mL/min (>60)
[2018-11-18 07:40] LABS: GLUCOMETER DEV NAME(LOC) 4E.2; GLUCOSE,POINT OF CARE 113 MG/DL (70-110)
[2018-11-18 07:55] VITALS: BP 100/59
[2018-11-18] MEDS: LOPERAMIDE HCL 2 MG/15 ML SUSPENSION UDCUP PEG SCH ×3 (08:10→20:59)
[2018-11-18] MEDS: APIXABAN 2.5 MG TABLET GT SCH ×2 (08:10→20:59)
[2018-11-18] MEDS: GABAPENTIN 300 MG CAPSULE GT SCH ×3 (08:10→20:59)
[2018-11-18] MEDS: FLUTICASONE PROPIONATE 50 MCG/SPRAY 16 GM NASAL SPRAY NASAL SCH (08:11)
[2018-11-18] MEDS: LACTOBAC ACID/BULG/BIFID/THERM TABLET PEG SCH (08:11)
[2018-11-18] MEDS: CARBOXYMETHYLCELLULOSE SODIUM 0.4 ML OPHTHALMIC SOLUTION [PF] OU SCH ×2 (08:14→20:59)
[2018-11-18] MEDS: PANTOPRAZOLE SODIUM 40 MG DR TABLET PO SCH (08:15)
[2018-11-18] MEDS: POLYETHYLENE GLYCOL 3350 17 GM PACKET GT SCH (08:22)
[2018-11-18] MEDS: METOPROLOL TARTRATE 25 MG TABLET GT SCH (08:22)
[2018-11-18] MEDS ORDERED: FUROSEMIDE 40 MG/5 ML SOLUTION UDCUP GT SCH (09:00)
[2018-11-18] MEDS: CefTRIAXone 1 GM/DEXTROSE 50 ML IV SCH (11:00)
[2018-11-18 11:29] VITALS: BP 121/66
[2018-11-18 11:50] LABS: GLUCOMETER DEV NAME(LOC) 4E.2; GLUCOSE,POINT OF CARE 122 MG/DL (70-110)
[2018-11-18 15:52] VITALS: BP 115/70
[2018-11-18 17:51] LABS: GLUCOMETER DEV NAME(LOC) 4E.2; GLUCOSE,POINT OF CARE 100 MG/DL (70-110)
[2018-11-18 19:00] VITALS: BP 108/66
[2018-11-18] MEDS ORDERED: 0.9% SODIUM CHLORIDE 5 ML NEB SOLUTION NEB ONE (22:59)
[2018-11-19] VITALS: BP 104/68
[2018-11-19 01:35] LABS: GLUCOMETER DEV NAME(LOC) 4E.2; GLUCOSE,POINT OF CARE 115 MG/DL (70-110)
[2018-11-19] MEDS: MetroNIDAZOLE 500 MG/NACL 100 ML IV SCH (01:44)
[2018-11-19] MEDS: ALBUTEROL SULFATE 2.5 MG/0.5 ML NEB SOLUTION NEB SCH ×3 (02:22→13:45)
[2018-11-19] MEDS: IPRATROPIUM BROMIDE 0.5 MG/2.5 ML NEB SOLUTION NEB SCH ×3 (02:22→13:45)
[2018-11-19 04:00] VITALS: BP 99/67
[2018-11-19] MEDS: LEVOTHYROXINE SODIUM 50 MCG TABLET GT SCH (05:24)
[2018-11-19] MEDS: CHOLESTYRAMINE/ASPARTAME 4 GM POWDER PACKET PO SCH ×2 (05:25→13:16)
[2018-11-19 05:44] LABS: GLUCOMETER DEV NAME(LOC) 4E.2; GLUCOSE,POINT OF CARE 122 MG/DL (70-110)
[2018-11-19] MEDS: ALBUTEROL SULFATE 2.5 MG/0.5 ML NEB SOLUTION NEB PRN (05:54)
[2018-11-19 07:10] VITALS: BP 102/69
[2018-11-19] MEDS: LOPERAMIDE HCL 2 MG/15 ML SUSPENSION UDCUP PEG SCH (08:58)
[2018-11-19] MEDS: APIXABAN 2.5 MG TABLET GT SCH (08:59)
[2018-11-19] MEDS: PANTOPRAZOLE SODIUM 40 MG DR TABLET PO SCH (08:59)
[2018-11-19] MEDS: GABAPENTIN 300 MG CAPSULE GT SCH (08:59)
[2018-11-19] MEDS: POLYETHYLENE GLYCOL 3350 17 GM PACKET GT SCH (08:59)
[2018-11-19] MEDS: CARBOXYMETHYLCELLULOSE SODIUM 0.4 ML OPHTHALMIC SOLUTION [PF] OU SCH (08:59)
[2018-11-19] MEDS: ONDANSETRON HCL 4 MG TABLET PO SCH (08:59)
[2018-11-19] MEDS: FLUTICASONE PROPIONATE 50 MCG/SPRAY 16 GM NASAL SPRAY NASAL SCH (08:59)
[2018-11-19] MEDS: LACTOBAC ACID/BULG/BIFID/THERM TABLET PEG SCH (08:59)
[2018-11-19] MEDS: FUROSEMIDE 40 MG/5 ML SOLUTION UDCUP GT SCH ×2 (09:00→09:01)
[2018-11-19] MEDS ORDERED: CEFU250T58 PO (09:34)
[2018-11-19] MEDS ORDERED: CEFUROXIME PO (10:27)
[2018-11-19] MEDS ORDERED: NEURONTIN GT (10:31)
[2018-11-19] MEDS ORDERED: IMMODIUM GT (10:32)
[2018-11-19] MEDS ORDERED: FURO20 PO (10:45)
[2018-11-19 11:00] VITALS: BP 103/52
[2018-11-19 18:30] LABS: GLUCOMETER DEV NAME(LOC) 4E.2; GLUCOSE,POINT OF CARE 105 MG/DL (70-110)
== END 2018-11-19 13:45 | disposition home health service (06) | DRG 178 ==
LOC: EMS 05:43 → 4E 14:35
PROVIDERS: ADMIT Internal Medicine Geriatric Medicine; ATTEND Internal Medicine Geriatric Medicine
PROC: 0DJ08ZZ Inspection of Upper Intestinal Tract, Via Natural or Artificial Opening Endoscopic (ICD-10-PCS; principal; 2018-11-10 16:25)
PROC: 0D20XUZ Change Feeding Device in Upper Intestinal Tract, External Approach (ICD-10-PCS; 2018-11-11)
DX: J69.0 Pneumonitis due to inhalation of food and vomit (principal); N39.0 Urinary tract infection, site not specified; J98.11 Atelectasis; E44.0 Moderate protein-calorie malnutrition; K94.23 Gastrostomy malfunction; I69.351 Hemiplegia and hemiparesis following cerebral infarction affecting right dominant side; E11.9 Type 2 diabetes mellitus without complications; K52.89 Other specified noninfective gastroenteritis and colitis; R13.10 Dysphagia, unspecified; E03.9 Hypothyroidism, unspecified; E78.5 Hyperlipidemia, unspecified; I48.91 Unspecified atrial fibrillation; B96.20 Unspecified Escherichia coli [E. coli] as the cause of diseases classified elsewhere; I11.0 Hypertensive heart disease with heart failure; J44.9 Chronic obstructive pulmonary disease, unspecified; D64.9 Anemia, unspecified; B96.89 Other specified bacterial agents as the cause of diseases classified elsewhere; E78.00 Pure hypercholesterolemia, unspecified; Z66 Do not resuscitate; M81.0 Age-related osteoporosis without current pathological fracture; K56.41 Fecal impaction; K29.70 Gastritis, unspecified, without bleeding; K21.9 Gastro-esophageal reflux disease without esophagitis; I50.9 Heart failure, unspecified; F01.50 Vascular dementia, unspecified severity, without behavioral disturbance, psychotic disturbance, mood disturbance, and anxiety; Z90.710 Acquired absence of both cervix and uterus; Z88.0 Allergy status to penicillin; Z86.718 Personal history of other venous thrombosis and embolism; Z86.14 Personal history of Methicillin resistant Staphylococcus aureus infection; Z82.3 Family history of stroke; Z79.01 Long term (current) use of anticoagulants; Z68.28 Body mass index [BMI] 28.0-28.9, adult
CPT/HCPCS: 36600; 49440; 51702; 71250; 74177; 76000; 82805; 83036; 83735; 84132; 84145; 84439; 87040; 87081; 87086; 92610; 93005; 93970; 94640; 96365; G0378; J0456; J0696; J1940; J2001; J2250; J2270; J3010; J3490; J7030; J7040; J7050; Q0162

== ENCOUNTER 2018-11-22 23:26 | Inpatient (IN) | payer MEDICARE, MEDICAID ==
[~2018-11-22] VITALS: Ht 160 cm; Wt 67.0 kg
[~2018-11-22 23:26] MED LIST changes: +APIX2.5T GT; -APIX5TAB PO; +CEFUROXIME PO; +FURO20 GT; -FURO40 PO; +IMMODIUM GT; +IPRA3AMP23 IH; +METF-960 GT; -METO25 PO; +METO25XL GT; +NEURONTIN GT; -OMEP20 GT; +ONDA4TAB4 GT; +PANT40TA25 GT; -PANT40TA25 PO
[2018-11-22] MEDS ORDERED: IPRATROPIUM BROMIDE 0.5 MG/2.5 ML NEB SOLUTION NEB PRN (23:45)
[2018-11-22] MEDS ORDERED: ALBUTEROL SULFATE 2.5 MG/0.5 ML NEB SOLUTION NEB PRN (23:45)
[2018-11-23] MEDS ORDERED: DEXTROSE 50%-WATER 25 GM/50 ML SYRINGE IVP PRN
[2018-11-23] MEDS ORDERED: IPRATROPIUM BROMIDE 0.5 MG/2.5 ML NEB SOLUTION NEB ONE
[2018-11-23] MEDS ORDERED: ALBUTEROL SULFATE 5 MG/ML 20 ML NEB SOLN [BULK] NEB ONE
[2018-11-23 00:09] LABS: BASOPHILS % (AUTO) 0.7 % (0.0-2.0); EOSINOPHILS % (AUTO) 7.8 % (1.0-6.0); HEMATOCRIT 34.8 % (36-46); HEMOGLOBIN 11.1 g/dL (12.0-16.0); LYMPHOCYTES % (AUTO) 21.4 % (22.0-44.0); MEAN CORPUSCULAR HEMOGLOBIN 25.2 pg (26.0-34.0); MEAN CORPUSCULAR HGB CONC 31.9 G/dL (31.0-37.0); MEAN CORPUSCULAR VOLUME 79 fL (80-100); MONOCYTES # (AUTO) 0.7 K/uL (0.1-1.0); MONOCYTES % (AUTO) 6.9 % (2.0-9.0); NEUTROPHILS % (AUTO) 63.2 % (40.0-70.0); PLATELET COUNT (AUTO) 345 K/uL (150-450); RED CELL DISTRIBUTION WIDTH 19.4 % (11.5-14.5)
[2018-11-23 00:17] LABS: ANION GAP 4 mmol/L (8-16); CALCIUM, TOTAL 9.3 mg/dL (8.8-10.5); CARBON DIOXIDE 32 mmol/L (22-29); CHLORIDE 99 mmol/L (98-107); CREATININE 0.54 mg/dL (0.60-1.30); GLUCOSE,RANDOM 121 mg/dL (70-110); POTASSIUM 4.7 mmol/L (3.5-5.1); SODIUM SERUM 135 mmol/L (136-145); UREA NITROGEN, BLOOD 13 mg/dL (7-18)
[2018-11-23 00:20] LABS: PROTHROMBIN TIME 10.7 SEC (9.4-11.6)
[2018-11-23 00:23] LABS: GLOMERULAR FILTR. RATE CALC > 60 mL/min (>60)
[2018-11-23 00:24] LABS: ALANINE AMINOTRANSFERASE 15 U/L (12-78); ALBUMIN 2.7 g/dL (3.4-5.0); ALKALINE PHOSPHATASE 109 U/L (46-116); ASPARTATE AMINOTRANSFERASE 16 U/L (15-37); BILIRUBIN,TOTAL 0.2 mg/dL (0.1-1.0); CREATINE KINASE, TOTAL ONLY 29 U/L (26-192); TOTAL PROTEIN, SERUM 6.4 g/dL (6.4-8.2)
[2018-11-23 00:38] LABS: LACTIC ACID 0.7 mmol/L (0.4-2.0)
[2018-11-23 01:23] LABS: APPEARANCE,URINE CLEAR (CLEAR); BILIRUBIN,URINE NEGATIVE (NEGATIVE); GLUCOSE, URINE (UA) NEGATIVE (NEGATIVE); KETONES,URINE NEGATIVE (NEGATIVE); LEUKOCYTE ESTERASE ,URINE NEGATIVE (NEGATIVE); NITRATE,URINE NEGATIVE (NEGATIVE); OCCULT BLOOD,URINE NEGATIVE (NEGATIVE); PROTEIN,URINE NEGATIVE (NEGATIVE); UROBILINOGEN,URINE 0.2 mg/dL (<=1.0)
[2018-11-23 01:26] LABS: INFLUENZA TYPE A NEGATIVE FOR TYPE A (NEGATIVE); INFLUENZA TYPE B NEGATIVE FOR TYPE B (NEGATIVE)
[2018-11-23 01:34] LABS: B-TYPE NATRIURETIC PEPTIDE 189 pg/mL (0-100)
[2018-11-23] MEDS: MethylPREDNISolone SOD SUCC 40 MG/ML VIAL IVP SCH ×4 (02:17→23:23)
[2018-11-23] MEDS ORDERED: AZITHROMYCIN 500 MG/NS 250 ML IV ONE (02:45)
[2018-11-23 03:56] VITALS: BP 96/65
[2018-11-23] MEDS: INSULIN LISPRO 100 UNITS/ML SQ PRN ×2 (06:13→17:57)
[2018-11-23 08:07] VITALS: BP 120/68
[2018-11-23] MEDS: FAMOTIDINE 20 MG TABLET PEG SCH (09:07)
[2018-11-23] MEDS: APIXABAN 5 MG TABLET PEG SCH ×2 (09:09→20:41)
[2018-11-23 11:33] VITALS: BP 120/86
[2018-11-23] MEDS ORDERED: BUMETANIDE 0.25 MG/ML 4 ML VIAL IVP ONE (11:45)
[2018-11-23 12:34] LABS: ANION GAP 7 mmol/L (8-16); CALCIUM, TOTAL 9.8 mg/dL (8.8-10.5); CARBON DIOXIDE 28 mmol/L (22-29); CHLORIDE 100 mmol/L (98-107); CREATININE 0.48 mg/dL (0.60-1.30); GLUCOSE,RANDOM 133 mg/dL (70-110); POTASSIUM 4.8 mmol/L (3.5-5.1); SODIUM SERUM 135 mmol/L (136-145); UREA NITROGEN, BLOOD 10 mg/dL (7-18)
[2018-11-23 12:35] LABS: GLOMERULAR FILTR. RATE CALC > 60 mL/min (>60)
[2018-11-23 16:29] VITALS: BP 145/91
[2018-11-23] MEDS: IPRATROPIUM BROMIDE 0.5 MG/2.5 ML NEB SOLUTION NEB SCH ×3 (16:45→23:22)
[2018-11-23] MEDS: ALBUTEROL SULFATE 2.5 MG/0.5 ML NEB SOLUTION NEB SCH ×3 (16:46→23:22)
[2018-11-23 19:58] VITALS: BP 138/77
[2018-11-23] MEDS: ATORVASTATIN CALCIUM 10 MG TABLET PEG SCH (20:41)
[2018-11-23] MEDS: ACETAMINOPHEN 650 MG/20.3 ML SOLUTION UDCUP PEG PRN (20:41)
[2018-11-24 00:03] VITALS: BP 137/71
[2018-11-24] MEDS: IPRATROPIUM BROMIDE 0.5 MG/2.5 ML NEB SOLUTION NEB SCH ×6 (03:32→23:06)
[2018-11-24] MEDS: ALBUTEROL SULFATE 2.5 MG/0.5 ML NEB SOLUTION NEB SCH ×6 (03:32→23:06)
[2018-11-24] MEDS: INSULIN LISPRO 100 UNITS/ML SQ PRN ×4 (06:09→20:37)
[2018-11-24 06:39] LABS: BASOPHILS % (AUTO) 0.2 % (0.0-2.0); EOSINOPHILS % (AUTO) 0.1 % (1.0-6.0); HEMOGLOBIN 12.6 g/dL (12.0-16.0); LYMPHOCYTES # (AUTO) 0.9 K/uL (1.0-4.8); LYMPHOCYTES % (AUTO) 17.2 % (22.0-44.0); MEAN CORPUSCULAR HEMOGLOBIN 24.9 pg (26.0-34.0); MEAN CORPUSCULAR HGB CONC 31.4 G/dL (31.0-37.0); MEAN CORPUSCULAR VOLUME 79 fL (80-100); MONOCYTES # (AUTO) 0.3 K/uL (0.1-1.0); MONOCYTES % (AUTO) 5.3 % (2.0-9.0); NEUTROPHILS # (AUTO) 4.2 K/uL (1.8-7.7); NEUTROPHILS % (AUTO) 77.2 % (40.0-70.0); PLATELET COUNT (AUTO) 365 K/uL (150-450); RED BLOOD CELL COUNT(AUTO) 5.03 MIL/uL (4.00-5.20); RED CELL DISTRIBUTION WIDTH 19.3 % (11.5-14.5)
[2018-11-24 07:16] LABS: ALANINE AMINOTRANSFERASE 16 U/L (12-78); ALBUMIN 3.2 g/dL (3.4-5.0); ALKALINE PHOSPHATASE 115 U/L (46-116); ANION GAP 8 mmol/L (8-16); ASPARTATE AMINOTRANSFERASE 25 U/L (15-37); BILIRUBIN,TOTAL 0.3 mg/dL (0.1-1.0); CALCIUM, TOTAL 10.1 mg/dL (8.8-10.5); CARBON DIOXIDE 30 mmol/L (22-29); CHLORIDE 97 mmol/L (98-107); FERRITIN 71 ng/mL (8-252); GLUCOSE,RANDOM 174 mg/dL (70-110); POTASSIUM 4.3 mmol/L (3.5-5.1); SODIUM SERUM 135 mmol/L (136-145); TOTAL PROTEIN, SERUM 7.3 g/dL (6.4-8.2); UREA NITROGEN, BLOOD 16 mg/dL (7-18)
[2018-11-24 07:18] LABS: GLOMERULAR FILTR. RATE CALC > 60 mL/min (>60)
[2018-11-24 07:32] LABS: % IRON SATURATION 9.8 % (22-44); IRON, SERUM 29 mcg/dL (50-175); TOTAL IRON BINDING CAPACITY 294 mcg/dL (250-450)
[2018-11-24 07:38] VITALS: BP 140/76
[2018-11-24] MEDS: MethylPREDNISolone SOD SUCC 40 MG/ML VIAL IVP SCH ×3 (08:32→20:26)
[2018-11-24] MEDS: APIXABAN 5 MG TABLET PEG SCH ×2 (08:33→20:21)
[2018-11-24] MEDS: FAMOTIDINE 20 MG TABLET PEG SCH (08:33)
[2018-11-24 11:13] VITALS: BP 132/78
[2018-11-24 15:36] VITALS: BP 126/73
[2018-11-24] MEDS ORDERED: LOPE1LIQ88 GT (17:45)
[2018-11-24] MEDS ORDERED: CEFU500T41 GT (17:45)
[2018-11-24 20:05] VITALS: BP 116/76
[2018-11-24] MEDS: ATORVASTATIN CALCIUM 10 MG TABLET PEG SCH (20:21)
[2018-11-24 23:30] VITALS: BP 127/78
[2018-11-25] MEDS: IPRATROPIUM BROMIDE 0.5 MG/2.5 ML NEB SOLUTION NEB SCH ×6 (03:00→23:07)
[2018-11-25] MEDS: ALBUTEROL SULFATE 2.5 MG/0.5 ML NEB SOLUTION NEB SCH ×6 (03:00→23:08)
[2018-11-25 03:10] VITALS: BP 136/87
[2018-11-25] MEDS: INSULIN LISPRO 100 UNITS/ML SQ PRN ×2 (06:06→17:43)
[2018-11-25] MEDS: ACETAMINOPHEN 650 MG/20.3 ML SOLUTION UDCUP PEG PRN ×3 (06:16→21:26)
[2018-11-25 06:29] LABS: BASOPHILS % (AUTO) 0.3 % (0.0-2.0); EOSINOPHILS % (AUTO) 0.2 % (1.0-6.0); HEMOGLOBIN 11.2 g/dL (12.0-16.0); LYMPHOCYTES # (AUTO) 0.9 K/uL (1.0-4.8); LYMPHOCYTES % (AUTO) 11.7 % (22.0-44.0); MEAN CORPUSCULAR HEMOGLOBIN 25.3 pg (26.0-34.0); MEAN CORPUSCULAR VOLUME 79 fL (80-100); MONOCYTES # (AUTO) 0.7 K/uL (0.1-1.0); MONOCYTES % (AUTO) 10.1 % (2.0-9.0); NEUTROPHILS # (AUTO) 5.7 K/uL (1.8-7.7); NEUTROPHILS % (AUTO) 77.7 % (40.0-70.0); PLATELET COUNT (AUTO) 419 K/uL (150-450); RED BLOOD CELL COUNT(AUTO) 4.44 MIL/uL (4.00-5.20); RED CELL DISTRIBUTION WIDTH 19.2 % (11.5-14.5)
[2018-11-25 06:40] LABS: ANION GAP 2 mmol/L (8-16); CALCIUM, TOTAL 9.4 mg/dL (8.8-10.5); CARBON DIOXIDE 31 mmol/L (22-29); CHLORIDE 100 mmol/L (98-107); CREATININE 0.58 mg/dL (0.60-1.30); GLUCOSE,RANDOM 173 mg/dL (70-110); POTASSIUM 4.5 mmol/L (3.5-5.1); SODIUM SERUM 133 mmol/L (136-145); UREA NITROGEN, BLOOD 24 mg/dL (7-18)
[2018-11-25 07:11] LABS: GLOMERULAR FILTR. RATE CALC > 60 mL/min (>60)
[2018-11-25] MEDS: FAMOTIDINE 20 MG TABLET PEG SCH (08:11)
[2018-11-25] MEDS: MethylPREDNISolone SOD SUCC 40 MG/ML VIAL IVP SCH ×2 (08:11→21:26)
[2018-11-25] MEDS: APIXABAN 5 MG TABLET PEG SCH ×2 (08:11→20:07)
[2018-11-25 08:23] VITALS: BP 142/89
[2018-11-25 12:33] VITALS: BP 145/94
[2018-11-25] MEDS: MAGNESIUM HYDROXIDE SUSPENSION 30 ML UDCUP PEG PRN (16:09)
[2018-11-25 16:40] VITALS: BP 155/74
[2018-11-25] MEDS: ATORVASTATIN CALCIUM 10 MG TABLET PEG SCH (20:07)
[2018-11-26] VITALS (7 sets, daily range): BP systolic 131–159; BP diastolic 79–97
[2018-11-26] MEDS: ALBUTEROL SULFATE 2.5 MG/0.5 ML NEB SOLUTION NEB SCH ×6 (03:22→22:59)
[2018-11-26] MEDS: IPRATROPIUM BROMIDE 0.5 MG/2.5 ML NEB SOLUTION NEB SCH ×6 (03:22→22:59)
[2018-11-26] MEDS: INSULIN LISPRO 100 UNITS/ML SQ PRN (06:11)
[2018-11-26] MEDS: ACETAMINOPHEN 650 MG/20.3 ML SOLUTION UDCUP PEG PRN ×2 (06:12→14:48)
[2018-11-26 06:24] LABS: BASOPHILS % (AUTO) 0.1 % (0.0-2.0); EOSINOPHILS % (AUTO) 0.3 % (1.0-6.0); HEMATOCRIT 35.5 % (36-46); HEMOGLOBIN 11.3 g/dL (12.0-16.0); LYMPHOCYTES # (AUTO) 0.7 K/uL (1.0-4.8); LYMPHOCYTES % (AUTO) 9.1 % (22.0-44.0); MEAN CORPUSCULAR HEMOGLOBIN 25.4 pg (26.0-34.0); MEAN CORPUSCULAR VOLUME 79 fL (80-100); MONOCYTES # (AUTO) 0.3 K/uL (0.1-1.0); MONOCYTES % (AUTO) 4.5 % (2.0-9.0); NEUTROPHILS # (AUTO) 6.4 K/uL (1.8-7.7); PLATELET COUNT (AUTO) 405 K/uL (150-450); RED BLOOD CELL COUNT(AUTO) 4.47 MIL/uL (4.00-5.20); RED CELL DISTRIBUTION WIDTH 19.6 % (11.5-14.5)
[2018-11-26] MEDS: MAGNESIUM HYDROXIDE SUSPENSION 30 ML UDCUP PEG PRN (06:29)
[2018-11-26 06:31] LABS: ANION GAP 4 mmol/L (8-16); CALCIUM, TOTAL 9.2 mg/dL (8.8-10.5); CARBON DIOXIDE 29 mmol/L (22-29); CHLORIDE 98 mmol/L (98-107); CREATININE 0.57 mg/dL (0.60-1.30); GLUCOSE,RANDOM 168 mg/dL (70-110); POTASSIUM 4.7 mmol/L (3.5-5.1); SODIUM SERUM 131 mmol/L (136-145); UREA NITROGEN, BLOOD 23 mg/dL (7-18)
[2018-11-26 06:56] LABS: GLOMERULAR FILTR. RATE CALC > 60 mL/min (>60)
[2018-11-26] MEDS: FAMOTIDINE 20 MG TABLET PEG SCH (09:02)
[2018-11-26] MEDS: APIXABAN 5 MG TABLET PEG SCH ×2 (09:02→20:19)
[2018-11-26] MEDS: MethylPREDNISolone SOD SUCC 40 MG/ML VIAL IVP SCH (09:02)
[2018-11-26] MEDS ORDERED: BISACODYL 10 MG RECTAL RECTAL SUPPOSITORY PR PRN (13:45)
[2018-11-26] MEDS ORDERED: SODIUM PHOS/SODIUM BIPHOS 133 ML ENEMA PR PRN (14:00)
[2018-11-26] MEDS: DOCUSATE SODIUM 100 MG CAPSULE PO SCH ×2 (14:46→20:19)
[2018-11-26] MEDS: PredniSONE 20 MG TABLET PEG SCH (20:19)
[2018-11-26] MEDS: ATORVASTATIN CALCIUM 10 MG TABLET PEG SCH (20:19)
[2018-11-27] MEDS: IPRATROPIUM BROMIDE 0.5 MG/2.5 ML NEB SOLUTION NEB SCH ×3 (02:23→11:02)
[2018-11-27] MEDS: ALBUTEROL SULFATE 2.5 MG/0.5 ML NEB SOLUTION NEB SCH ×3 (02:23→11:02)
[2018-11-27 04:17] VITALS: BP 143/85
[2018-11-27] MEDS: ACETAMINOPHEN 650 MG/20.3 ML SOLUTION UDCUP PEG PRN (05:55)
[2018-11-27 07:21] VITALS: BP 135/77
[2018-11-27] MEDS: DOCUSATE SODIUM 100 MG CAPSULE PO SCH (09:00)
[2018-11-27] MEDS: PredniSONE 20 MG TABLET PEG SCH (09:04)
[2018-11-27] MEDS: APIXABAN 5 MG TABLET PEG SCH (09:04)
[2018-11-27] MEDS: FAMOTIDINE 20 MG TABLET PEG SCH (09:04)
[2018-11-27 11:00] VITALS: BP 148/81
[2018-11-27] MEDS: INSULIN LISPRO 100 UNITS/ML SQ PRN (12:25)
[2018-11-27] MEDS ORDERED: DSS100 PO (13:54)
[2018-11-27] MEDS ORDERED: PRED20 PO (13:58)
[2018-11-27] MEDS ORDERED: POLY238P2 PO (14:03)
[2018-11-27] MEDS ORDERED: POLYETHYLENE GLYCOL 3350 17 GM PACKET PO SCH (21:00)
[2018-11-28 05:41] LABS: GLUCOMETER DEV NAME(LOC) 4E.2; GLUCOSE,POINT OF CARE 144 MG/DL (70-110)
[2018-11-28 05:42] LABS: GLUCOMETER DEV NAME(LOC) 4E.2; GLUCOSE,POINT OF CARE 126 MG/DL (70-110)
[2018-11-28 05:42] LABS: GLUCOMETER DEV NAME(LOC) 4E.2; GLUCOSE,POINT OF CARE 147 MG/DL (70-110)
[2018-11-28 05:42] LABS: GLUCOMETER DEV NAME(LOC) 4E.2; GLUCOSE,POINT OF CARE 129 MG/DL (70-110)
[2018-11-28 05:42] LABS: GLUCOMETER DEV NAME(LOC) 4E.2; GLUCOSE,POINT OF CARE 143 MG/DL (70-110)
[2018-11-28 05:42] LABS: GLUCOMETER DEV NAME(LOC) 4E.2; GLUCOSE,POINT OF CARE 143 MG/DL (70-110)
[2018-11-28 05:42] LABS: GLUCOMETER DEV NAME(LOC) 4E.2; GLUCOSE,POINT OF CARE 169 MG/DL (70-110)
[2018-11-28 05:42] LABS: GLUCOMETER DEV NAME(LOC) 4E.2; GLUCOSE,POINT OF CARE 123 MG/DL (70-110)
[2018-11-28 05:42] LABS: GLUCOMETER DEV NAME(LOC) 4E.2; GLUCOSE,POINT OF CARE 129 MG/DL (70-110)
[2018-11-28 05:42] LABS: GLUCOMETER DEV NAME(LOC) 4E.2; GLUCOSE,POINT OF CARE 122 MG/DL (70-110)
[2018-11-28 05:42] LABS: GLUCOMETER DEV NAME(LOC) 4E.2; GLUCOSE,POINT OF CARE 157 MG/DL (70-110)
[2018-11-28 05:42] LABS: GLUCOMETER DEV NAME(LOC) 4E.2; GLUCOSE,POINT OF CARE 157 MG/DL (70-110)
[2018-11-28 05:42] LABS: GLUCOMETER DEV NAME(LOC) 4E.2; GLUCOSE,POINT OF CARE 175 MG/DL (70-110)
[2018-11-28 05:42] LABS: GLUCOMETER DEV NAME(LOC) 4E.2; GLUCOSE,POINT OF CARE 164 MG/DL (70-110)
[2018-11-28 05:43] LABS: GLUCOMETER DEV NAME(LOC) 4E.2; GLUCOSE,POINT OF CARE 126 MG/DL (70-110)
[2018-11-28 05:43] LABS: GLUCOMETER DEV NAME(LOC) 4E.2; GLUCOSE,POINT OF CARE 124 MG/DL (70-110)
[2018-11-28 05:43] LABS: GLUCOMETER DEV NAME(LOC) 4E.2; GLUCOSE,POINT OF CARE 126 MG/DL (70-110)
[2018-11-28 05:43] LABS: GLUCOMETER DEV NAME(LOC) 4E.2; GLUCOSE,POINT OF CARE 137 MG/DL (70-110)
== END 2018-11-27 15:05 | disposition home health service (06) | DRG 189 ==
LOC: EMS 23:28 → 4E 11-23 02:23
PROVIDERS: ADMIT Internal Medicine; ATTEND Internal Medicine
DX: J96.01 Acute respiratory failure with hypoxia (principal); E43 Unspecified severe protein-calorie malnutrition; J44.1 Chronic obstructive pulmonary disease with (acute) exacerbation; J98.11 Atelectasis; J44.0 Chronic obstructive pulmonary disease with (acute) lower respiratory infection; I69.351 Hemiplegia and hemiparesis following cerebral infarction affecting right dominant side; F01.50 Vascular dementia, unspecified severity, without behavioral disturbance, psychotic disturbance, mood disturbance, and anxiety; E11.8 Type 2 diabetes mellitus with unspecified complications; R13.10 Dysphagia, unspecified; I48.0 Paroxysmal atrial fibrillation; K52.89 Other specified noninfective gastroenteritis and colitis; K21.9 Gastro-esophageal reflux disease without esophagitis; I50.9 Heart failure, unspecified; E78.00 Pure hypercholesterolemia, unspecified; M81.0 Age-related osteoporosis without current pathological fracture; I11.0 Hypertensive heart disease with heart failure; J20.9 Acute bronchitis, unspecified; K56.41 Fecal impaction; Z74.01 Bed confinement status; Z79.4 Long term (current) use of insulin; Z87.01 Personal history of pneumonia (recurrent); Z68.26 Body mass index [BMI] 26.0-26.9, adult; Z88.0 Allergy status to penicillin; Z88.8 Allergy status to other drugs, medicaments and biological substances
CPT/HCPCS: 82728; 83540; 83550; 83605; 87040; 87081; 87804; 93005; 94640; 97162; 97167; G0378; J0456; J2920; J3490

== ENCOUNTER 2018-12-02 17:35 | Emergency (ER) | payer MEDICARE, MEDICAID ==
[~2018-12-02] VITALS: Ht 167.6 cm; Wt 100.0 kg
[~2018-12-02 17:35] MED LIST changes: -CEFUROXIME PO; +DSS100 PO; -FURO20 GT; -IMMODIUM GT; -NEURONTIN GT; +POLY238P2 PO; +PRED20 PO
[2018-12-02] MEDS ORDERED: METF-960 PO (17:52)
[2018-12-02 19:53] VITALS: BP 122/72
[2018-12-02 21:25] LABS: GLUCOSE,POINT OF CARE 101 MG/DL (70-110)
== END 2018-12-02 20:40 | disposition home or self-care (01) ==
LOC: EMS 17:38
DX: K94.23 Gastrostomy malfunction (principal); I10 Essential (primary) hypertension; E78.00 Pure hypercholesterolemia, unspecified; K21.9 Gastro-esophageal reflux disease without esophagitis; I48.91 Unspecified atrial fibrillation; Z88.0 Allergy status to penicillin; Z88.8 Allergy status to other drugs, medicaments and biological substances; Z79.899 Other long term (current) drug therapy
CPT/HCPCS: 43762

== ENCOUNTER 2019-06-07 17:06 | Inpatient (IN) | payer MEDICARE, MEDICAID ==
[~2019-06-07] VITALS: Ht 160 cm; Wt 72.4 kg
[~2019-06-07 17:06] MED LIST changes: -METF-960 GT; +METF-960 PO
[2019-06-07] MEDS ORDERED: DIATRIZOATE MEGLU/SOD 660/100 MG/ML 120 ML BOTTLE PEG ONE (17:45)
[2019-06-07 18:17] LABS: BASOPHILS % (AUTO) 0.5 % (0.0-2.0); HEMATOCRIT 38.3 % (36-46); HEMOGLOBIN 12.4 g/dL (12.0-16.0); LYMPHOCYTES # (AUTO) 1.3 K/uL (1.0-4.8); LYMPHOCYTES % (AUTO) 16.6 % (22.0-44.0); MEAN CORPUSCULAR HEMOGLOBIN 26.9 pg (26.0-34.0); MEAN CORPUSCULAR HGB CONC 32.4 G/dL (31.0-37.0); MEAN CORPUSCULAR VOLUME 83 fL (80-100); MONOCYTES # (AUTO) 0.7 K/uL (0.1-1.0); MONOCYTES % (AUTO) 8.9 % (2.0-9.0); NEUTROPHILS # (AUTO) 5.3 K/uL (1.8-7.7); PLATELET COUNT (AUTO) 231 K/uL (150-450); RED BLOOD CELL COUNT(AUTO) 4.62 MIL/uL (4.00-5.20); RED CELL DISTRIBUTION WIDTH 18.8 % (11.5-14.5)
[2019-06-07 18:23] LABS: ANION GAP 3 mmol/L (8-16); CALCIUM, TOTAL 9.2 mg/dL (8.8-10.5); CARBON DIOXIDE 30 mmol/L (22-29); CHLORIDE 102 mmol/L (98-107); CREATININE 0.47 mg/dL (0.60-1.30); GLUCOSE,RANDOM 97 mg/dL (70-110); POTASSIUM 4.2 mmol/L (3.5-5.1); SODIUM SERUM 135 mmol/L (136-145); UREA NITROGEN, BLOOD 12 mg/dL (7-18)
[2019-06-07 18:25] LABS: GLOMERULAR FILTR. RATE CALC > 60 mL/min (>60)
[2019-06-07 18:29] LABS: ALANINE AMINOTRANSFERASE 118 U/L (12-78); ALBUMIN 2.8 g/dL (3.4-5.0); ALKALINE PHOSPHATASE 348 U/L (46-116); ASPARTATE AMINOTRANSFERASE 85 U/L (15-37); BILIRUBIN,TOTAL 0.3 mg/dL (0.1-1.0); TOTAL PROTEIN, SERUM 6.3 g/dL (6.4-8.2)
[2019-06-07 18:31] LABS: INR 1.1 (0.9-1.1); PROTHROMBIN TIME 11.1 SEC (9.4-11.6)
[2019-06-07 20:26] LABS: GLUCOSE,POINT OF CARE 105 MG/DL (70-110)
[2019-06-07] MEDS ORDERED: ACETAMINOPHEN 325 MG TABLET PO PRN (20:30)
[2019-06-07] MEDS ORDERED: ONDANSETRON HCL 4 MG/2 ML VIAL IVP PRN (20:30)
[2019-06-07] MEDS ORDERED: 0.9% SODIUM CHLORIDE 10 ML SYRINGE IVP PRN (20:30)
[2019-06-07 21:52] VITALS: BP 103/68
[2019-06-08] MEDS ORDERED: ONDANSETRON HCL 4 MG/2 ML VIAL IVP PRN
[2019-06-08] MEDS ORDERED: 0.9% SODIUM CHLORIDE 10 ML SYRINGE IVP PRN
[2019-06-08 00:02] VITALS: BP 98/59
[2019-06-08] MEDS ORDERED: SODIUM CHLORIDE 0.9% 250 ML IV ONE (00:45)
[2019-06-08] MEDS ORDERED: SODIUM CHLORIDE 0.9% 1,000 ML IV SCH (00:45)
[2019-06-08 05:43] VITALS: BP 118/68
[2019-06-08 07:12] LABS: BASOPHILS % (AUTO) 0.5 % (0.0-2.0); EOSINOPHILS % (AUTO) 6.4 % (1.0-6.0); HEMATOCRIT 36.9 % (36-46); HEMOGLOBIN 11.9 g/dL (12.0-16.0); LYMPHOCYTES # (AUTO) 1.1 K/uL (1.0-4.8); LYMPHOCYTES % (AUTO) 21.8 % (22.0-44.0); MEAN CORPUSCULAR HEMOGLOBIN 26.9 pg (26.0-34.0); MEAN CORPUSCULAR HGB CONC 32.3 G/dL (31.0-37.0); MEAN CORPUSCULAR VOLUME 83 fL (80-100); MONOCYTES # (AUTO) 0.6 K/uL (0.1-1.0); MONOCYTES % (AUTO) 10.8 % (2.0-9.0); NEUTROPHILS # (AUTO) 3.2 K/uL (1.8-7.7); NEUTROPHILS % (AUTO) 60.5 % (40.0-70.0); PLATELET COUNT (AUTO) 205 K/uL (150-450); RED BLOOD CELL COUNT(AUTO) 4.42 MIL/uL (4.00-5.20); RED CELL DISTRIBUTION WIDTH 18.6 % (11.5-14.5)
[2019-06-08 07:42] VITALS: BP 121/59
[2019-06-08 07:52] LABS: ALANINE AMINOTRANSFERASE 95 U/L (12-78); ALBUMIN 2.6 g/dL (3.4-5.0); ALKALINE PHOSPHATASE 299 U/L (46-116); ANION GAP 3 mmol/L (8-16); ASPARTATE AMINOTRANSFERASE 60 U/L (15-37); BILIRUBIN,TOTAL 0.4 mg/dL (0.1-1.0); CALCIUM, TOTAL 9.1 mg/dL (8.8-10.5); CARBON DIOXIDE 30 mmol/L (22-29); CHLORIDE 106 mmol/L (98-107); CREATININE 0.49 mg/dL (0.60-1.30); GLUCOSE,RANDOM 81 mg/dL (70-110); POTASSIUM 4.3 mmol/L (3.5-5.1); SODIUM SERUM 139 mmol/L (136-145); TOTAL PROTEIN, SERUM 5.8 g/dL (6.4-8.2); UREA NITROGEN, BLOOD 9 mg/dL (7-18)
[2019-06-08 07:54] LABS: GLOMERULAR FILTR. RATE CALC > 60 mL/min (>60)
[2019-06-08] MEDS ORDERED: SODIUM CL IRRIG SOLN BOTTLE 250 ML IRRIG ONE (09:25)
[2019-06-08] MEDS: PANTOPRAZOLE SODIUM 40 MG/VIAL IVP SCH (09:38)
[2019-06-08 11:20] VITALS: BP 132/84
[2019-06-08] MEDS ORDERED: DEXTROSE 50%-WATER 25 GM/50 ML SYRINGE IVP PRN (11:30)
[2019-06-08] MEDS ORDERED: DEXTROSE 5%-0.9% SODIUM CHL 1,000 ML IV SCH (11:30)
[2019-06-08] MEDS ORDERED: INSULIN LISPRO 100 UNITS/ML SQ PRN (11:30)
[2019-06-08] MEDS ORDERED: SODIUM CHLORIDE 0.9% 1,000 ML ONE (14:19)
[2019-06-08 14:20] LABS: GLUCOMETER DEV NAME(LOC) 4E.2; GLUCOSE,POINT OF CARE 66 MG/DL (70-110)
[2019-06-08 15:15] VITALS: BP 135/79
[2019-06-08] MEDS ORDERED: IOHEXOL 240 MG/ML 20 ML VIAL ONE (15:52)
[2019-06-08] MEDS ORDERED: IOHEXOL 180 MG/ML 20 ML VIAL ONE (15:52)
[2019-06-08] MEDS ORDERED: INFLUENZA VIRUS VACCINE QVS 2019-20 (3YR+)/PF 60 MCG/0.5 ML SYRINGE IM ONE (17:00)
[2019-06-08 18:00] LABS: GLUCOMETER DEV NAME(LOC) 4E.2; GLUCOSE,POINT OF CARE 133 MG/DL (70-110)
[2019-06-08] MEDS ORDERED: MISC MED-CONVERTED FROM AMBULATORY (Ipratropium/Albuterol Sulfate (Ipratr-Albuterol 0.5-3 IH SCH (19:15)
[2019-06-08] MEDS ORDERED: IPRATROPIUM BROMIDE 0.5 MG/2.5 ML NEB SOLUTION NEB PRN (19:30)
[2019-06-08] MEDS ORDERED: ALBUTEROL SULFATE 2.5 MG/0.5 ML NEB SOLUTION NEB PRN (19:30)
[2019-06-08 20:00] VITALS: BP 134/88
[2019-06-09 00:28] VITALS: BP 134/84
[2019-06-09 04:50] VITALS: BP 149/82
[2019-06-09] MEDS ORDERED: LEVOTHYROXINE SODIUM 50 MCG TABLET GT SCH (07:45)
[2019-06-09] MEDS ORDERED: MetFORMIN HCL 500 MG TABLET GT SCH (08:00)
[2019-06-09 08:19] VITALS: BP 136/80
[2019-06-09] MEDS ORDERED: GABAPENTIN 300 MG CAPSULE GT SCH (09:00)
[2019-06-09] MEDS ORDERED: POLYETHYLENE GLYCOL 3350 17 GM PACKET GT SCH (09:00)
[2019-06-09] MEDS ORDERED: DOCUSATE SODIUM 100 MG/10 ML LIQUID UDCUP GT SCH (09:00)
[2019-06-09] MEDS ORDERED: PredniSONE 20 MG TABLET GT SCH (09:00)
[2019-06-09] MEDS ORDERED: ATORVASTATIN CALCIUM 10 MG TABLET GT SCH (09:00)
[2019-06-09] MEDS ORDERED: FLUTICASONE PROPIONATE 50 MCG/SPRAY 16 GM NASAL SPRAY NASAL SCH (09:00)
[2019-06-09] MEDS ORDERED: APIXABAN 5 MG TABLET GT SCH (09:00)
[2019-06-09] MEDS ORDERED: CARBOXYMETHYLCELLULOSE SODIUM 0.4 ML OPHTHALMIC SOLUTION [PF] OU SCH (09:00)
[2019-06-09] MEDS ORDERED: ONDANSETRON HCL 4 MG TABLET GT SCH (09:00)
[2019-06-09] MEDS ORDERED: PANTOPRAZOLE SODIUM 40 MG DR TABLET PO SCH (09:00)
[2019-06-09] MEDS: PANTOPRAZOLE SODIUM 40 MG/VIAL IVP SCH (09:46)
[2019-06-09 11:10] VITALS: BP 120/66
[2019-06-09 11:28] LABS: GLUCOMETER DEV NAME(LOC) 4E.2; GLUCOSE,POINT OF CARE 107 MG/DL (70-110)
[2019-06-09 11:28] LABS: GLUCOMETER DEV NAME(LOC) 4E.2; GLUCOSE,POINT OF CARE 95 MG/DL (70-110)
[2019-06-09 17:37] LABS: GLUCOMETER DEV NAME(LOC) 4E.2; GLUCOSE,POINT OF CARE 173 MG/DL (70-110)
[2019-06-09] MEDS ORDERED: METOPROLOL SUCCINATE 25 MG ER TABLET GT SCH (21:00)
[2019-06-10] MEDS ORDERED: MetFORMIN HCL 500 MG TABLET GT SCH (08:00)
== END 2019-06-09 14:50 | disposition home or self-care (01) | DRG 393 ==
LOC: EMS 17:09 → 5N 20:00 → 4E 20:01
PROVIDERS: ADMIT Internal Medicine; ATTEND Internal Medicine
PROC: 3E02340 Introduction of Influenza Vaccine into Muscle, Percutaneous Approach (ICD-10-PCS; 2019-06-08)
PROC: 0DH63UZ Insertion of Feeding Device into Stomach, Percutaneous Approach (ICD-10-PCS; principal; 2019-06-08 14:30)
DX: K94.23 Gastrostomy malfunction (principal); J69.0 Pneumonitis due to inhalation of food and vomit; J98.11 Atelectasis; I69.351 Hemiplegia and hemiparesis following cerebral infarction affecting right dominant side; J44.9 Chronic obstructive pulmonary disease, unspecified; K52.89 Other specified noninfective gastroenteritis and colitis; I48.91 Unspecified atrial fibrillation; I50.9 Heart failure, unspecified; I11.0 Hypertensive heart disease with heart failure; E11.9 Type 2 diabetes mellitus without complications; K56.41 Fecal impaction; Z66 Do not resuscitate; F03.90 Unspecified dementia, unspecified severity, without behavioral disturbance, psychotic disturbance, mood disturbance, and anxiety; E78.00 Pure hypercholesterolemia, unspecified; M81.0 Age-related osteoporosis without current pathological fracture; K21.9 Gastro-esophageal reflux disease without esophagitis; R13.10 Dysphagia, unspecified; Y83.8 Other surgical procedures as the cause of abnormal reaction of the patient, or of later complication, without mention of misadventure at the time of the procedure; Z87.01 Personal history of pneumonia (recurrent); Z88.0 Allergy status to penicillin; Z88.8 Allergy status to other drugs, medicaments and biological substances; Z23 Encounter for immunization
CPT/HCPCS: 74018; 74176; 76700; 83735; 87040; 87070; 87205; 90686; C9113; G0378; J7030; Q0162; Q9965; Q9966

== ENCOUNTER → 2020-04-18 | Outpatient (CLI) | payer MEDICARE, MEDICAID ==
[~2020-04-18] MED LIST changes: +PANT-31 GT; -PANT40TA25 GT; -PRED20 PO
== END | disposition home or self-care (01) ==
LOC: RADPV 08:48
PROVIDERS: ATTEND Legal Medicine
DX: J90 Pleural effusion, not elsewhere classified (principal); J18.9 Pneumonia, unspecified organism
CPT/HCPCS: 71046; 71046-TC